=== PATIENT | female | born 1945 | race Caucasian/White ===

== ENCOUNTER 2020-07-05 06:30 | Emergency (ER) | payer MEDICARE, OTHER ==
[~2020-07-05] VITALS: Ht 154.9 cm; Wt 41.2 kg
[~2020-07-05 06:30] MED LIST: BACITAB PO; COUM2.5T17 PO; FLAG500T PO; LEVA750T7 PO; PROTPAK PO; TYLE325T5 PO; ULTR50TA8 PO
--- OUTSIDE RECORDS SUMMARY | 2020-07-05 06:40 | CCD | Continuity of Care Document ---
Author Author Kailey BUSTAMANTE Organization Unknown Address [address] [place] [address] Phone [phone] Care Team Providers Care Autocad Name Role Phone Karla Bustamante AUTM [phone] Problems Active Problems Provider Date Pure hypercholesterolemia HEIDY Jacobs PNP Onset: Pure hyperglyceridemia HEIDY Jacobs PNP Onset: 2019 Essential hypertension HEIDY Jacobs PNP Onset: 2019 Gastroesophageal reflux disease HEIDY Jacobs PNP Onse t: 04/19/2020 Taking medication HEIDY Jacobs PNP Onset: 0 Age-related osteoporosis without current pathological fracture DANDY Jacobs PNP Onset: 04/19/2020 Social History Type Date Description Comments Sex Unknown Tobacco Use Start: Unknown Never Smoked Cigarettes Tobacco Use Start: Unknown Never Smoked Cigars Tobacco Use Start: Unknown Never Smoked A Pipe Tobacco Use Start: Unknown Never Used Smokeless Tobacco ETOH Use Denies alcohol use Tobacco Use Start: Unknown Patient has never smoked Recreational Drug Use Denies Drug Use Allergies, Adverse Reactions, Alerts Description No Known Drug Allergies Medications Active Medications SIG Qnty Indications Ordering Provide r Date Pantoprazole Sodium 20mg Tablets D R take one tablet by mouth every day 90tabs HEIDY Jacobs PNP 04/19/2020 Magnesium Oxide 400mg Tablets 1 by mouth every day 90tabs HEIDY Jacobs PNP 04/19/20 20 Clonidine HCL 0.1mg Tablets take one tablet by mouth every day 90tabs HEIDY Jacobs, PN P Fenofibrate 48mg Tablets take one tablet by mouth every day 90tabs HEIDY Jacobs PNP Losartan Potassium 100mg Tablets take one tablet by mouth every day 90tabs HEIDY Jacobs, PN P Atorvastatin Calcium 20mg Tablets take one tablet by mouth every evening 90tabs HEIDY Jacobs , PNP Alendronate Sodium 70mg Tablets take 1 tablet by mouth once a week 12tabs HEIDY Jacobs, PNP Caltrate 600+D Plus Minerals [id number] Tablets 1 by mouth twice a day Unknown Hair Skin And Nails Formula Table ts 2 by mouth every day Unknown Vitamin E 180mg Capsules 1 by mouth every day Unknown Immunizations Description No Information Available Vital Signs Date Vital Result Comment 04/19/2020 1:12pm BP Systolic 120 mmHg BP Diastolic 80 mmHg Heart Rate 102 /min Body Temperature 97.4 F Respiratory Rate 18 /min O2 % BldC Oximetry 97 % Weight 89.12 lb Weight 40.427 kg Height 58 inches 4'10" BMI (Body Mass Index) 18.6 kg/m2 BSA (Body Surface Area) 1.29 m2 10/20/2019 1:00pm BP Systolic 140 mmHg BP Diastolic 68 mmHg Heart Rate 94 /min Body Temperature 98.2 F Respiratory Rate 18 /min O2 % BldC Oximetry 96 % Weight 96.25 lb Weight 43.659 kg Height 58 inches 4'10" BMI (Body Mass Index) 20.1 kg/m2 BSA (Body Surface Area) 1.33 m2 Results Test Acquired Date Facility Test Result H/L Range Note CBC W/Automated Diff 04/14/2020 [facility] CBC W/Automated Diff (SEE NOTE) 1, 2 WBC 8.1 10^3/uL 4.2 - 11.0 RBC 3.81 10^6/uL Low 4.20 - 5.40 Hemoglobin 11.0 g/dL Low 12.0 - 16.0 Hematocrit 35.0 % Low 37.0 - 47.0 MCV 91.9 fL 81.0 - 101 MCH 28.9 pg 27.0 - 34.0 MCHC 31.4 g/dL 31.0 - 36.0 RDW 13.6 % 11.5 - 14.5 Platelets 331 10^3/uL 150 - 450 MPV 9.7 fL 7.4 - 10.4 Neut 70.9 % 37.0 - 80.0 Lymph 20.0 % Low 25.0 - 40.0 Ashe 6.0 % 3.0 - 8.0 Eos 1.9 % 0.0 - 7.0 Baso 0.6 % 0.0 - 2.5 %Ig 0.6 % High 0.0 - 0.0 %NRBC 0.0 % 0.0 - 0.0 #Neut 5.74 10^3/uL 2.00 - 6.90 #Lymph 1.62 10^3/uL 0.60 - 3.40 #Ashe 0.49 10^3/uL 0.00 - 0.90 #Eos 0.15 10^3/uL 0.00 - 0.70 #Baso 0.05 10^3/uL 0.00 - 0.20 #Ig 0.05 10^3/uL 0.00 - 0.10 #NRBC 0.00 10^3/uL 0.00 - 0.00 Manual Diff NOT INDICATED RBC Morph NOT INDICATED Comprehensive Metabolic Panel 04/14/2020 [facility] Comprehensive Metabo (SEE NOTE) 3 Sodium 143 mEq/L 134 - 153 Potassium 4.0 mEq/L 3.6 - 5.0 Chloride 107 mEq/L 98 - 107 Co2 27 mEq/L 22 - 30 Glucose 108 mg/dL 65 - 110 BUN 28 mg/dL High 7 - 21 Creatinine 1.0 mg/dL 0.7 - 1.5 BUN/Creat 28 High 8 - 27 Total Protein 6.9 g/dL 6.3 - 8.2 Albumin 4.4 g/dL 3.9 - 5.0 Globulin 2.5 GM/DL 2.4 - 3.2 A/G Ratio 1.8 0.8 - 2.0 Calcium 10.0 mg/dL 8.4 - 10.2 Total Bili <0.7 mg/dL 0.2 - 1.3 Alkaline Phos 82 U/L 38 - 126 Sgot/Ast 16 U/L 5 - 40 SGPT/Alt 11 U/L 7 - 56 Anion Gap 9.0 mmol/L 8.0 - 16.0 Age 75 yrs Non-Aa GFR 57 mL/min Afr Amer GFR >60 4 Laboratory test finding 04/14/2020 [facility] Hgba1c 6.6 % High 4.4 - 6.1 5 TSH Highly Sensitive 1.01 uIU/mL 0.47 - 5.01 Cve Panel 04/14/2020 [facility] Cve Panel (SEE NOTE) 6 Cholesterol 176 mg/dL 131 - 200 Triglycerides 155 mg/dL 35 - 160 HDL 56 mg/dL 29 - 86 LDL 97 mg/dL 65 - 175 Risk Factor 3.1 Low 3.2 - 4.4 LDL/HDL 1.73 1.47 - 3.22 7 Laboratory test finding 04/14/2020 [facility] Magnesium Serum 1.3 mg/dL Low 1.7 - 2.2 CBC W/Automated Diff 10/26/2019 [facility] CBC W/Automated Diff (SEE NOTE) 8, 9 WBC 6.5 10^3/uL 4.2 - 11.0 RBC 3.96 10^6/uL Low 4.20 - 5.40 Hemoglobin 11.6 g/dL Low 12.0 - 16.0 Hematocrit 36.7 % Low 37.0 - 47.0 MCV 92.7 fL 81.0 - 101 MCH 29.3 pg 27.0 - 34.0 MCHC 31.6 g/dL 31.0 - 36.0 RDW 13.4 % 11.5 - 14.5 Platelets 287 10^3/uL 150 - 450 MPV 10.0 fL 7.4 - 10.4 Neut 65.0 % 37.0 - 80.0 Lymph 25.1 % 25.0 - 40.0 Ashe 6.3 % 3.0 - 8.0 Eos 2.2 % 0.0 - 7.0 Baso 0.9 % 0.0 - 2.5 %Ig 0.5 % High 0.0 - 0.0 %NRBC 0.0 % 0.0 - 0.0 #Neut 4.20 10^3/uL 2.00 - 6.90 #Lymph 1.62 10^3/uL 0.60 - 3.40 #Ashe 0.41 10^3/uL 0.00 - 0.90 #Eos 0.14 10^3/uL 0.00 - 0.70 #Baso 0.06 10^3/uL 0.00 - 0.20 #Ig 0.03 10^3/uL 0.00 - 0.10 #NRBC 0.00 10^3/uL 0.00 - 0.00 Manual Diff NOT INDICATED RBC Morph NOT INDICATED Comprehensive Metabolic Panel 10/26/2019 [facility] Comprehensive Metabo (SEE NOTE) 10 Sodium 145 mEq/L 134 - 153 Potassium 4.2 mEq/L 3.6 - 5.0 Chloride 104 mEq/L 98 - 107 Co2 25 mEq/L 22 - 30 Glucose 103 mg/dL 65 - 110 BUN 20 mg/dL 7 - 21 Creatinine 1.2 mg/dL 0.7 - 1.5 BUN/Creat 17 8 - 27 Total Protein 7.3 g/dL 6.3 - 8.2 Albumin 4.8 g/dL 3.9 - 5.0 Globulin 2.5 GM/DL 2.4 - 3.2 A/G Ratio 1.9 0.8 - 2.0 Calcium 10.0 mg/dL 8.4 - 10.2 Total Bili <0.7 mg/dL 0.2 - 1.3 Alkaline Phos 74 U/L 38 - 126 Sgot/Ast 16 U/L 5 - 40 SGPT/Alt 10 U/L 7 - 56 Anion Gap 16.0 mmol/L 8.0 - 16.0 Age 74 yrs Non-Aa GFR 47 mL/min Afr Amer GFR >60 11 Laboratory test finding 10/26/2019 [facility] Hgba1c 6.7 % High 4.4 - 6.1 12 TSH Highly Sensitive 2.18 uIU/mL 0.47 - 5.01 Cve Panel 10/26/2019 [facility] Cve Panel (SEE NOTE) 13 Cholesterol 202 mg/dL High 131 - 200 Triglycerides 132 mg/dL 35 - 160 HDL 65 mg/dL 29 - 86 LDL 119 mg/dL 65 - 175 Risk Factor 3.1 Low 3.2 - 4.4 LDL/HDL 1.83 1.47 - 3.22 14 Laboratory test finding 10/26/2019 [facility] Magnesium Serum 1.6 mg/dL Low 1.7 - 2.2 1 FASTING~.~.~<DG1.3.1>E78.00</DG1.3.1><DG1.3.1>E78.1</DG1.3.1><DG1.3.1>Z79.899</D G1.3.1><DG1. 2 COMPLETE BLOOD COUNT 3 COMPREHENSIVE METABOLIC PANE L 4 Male GFR Interprentation 20-49 yrs >60 mL/min Normal 50-59 yrs >56 mL/min Normal 60-69 yrs >49 mL/min Normal 70-79yrs >42 mL/min Normal 80 and above >35 mL/min Normal Female GFR Interpretation 20-39 yrs >60 mL/min Normal 40-49 yrs >58 mL/min Normal 50-59 yrs >51 mL/min Normal 60-69 yrs >45 mL/min Normal 70-79 yrs >39 mL/min Normal 80 and above >32 mL/min Normal 5 {A1] {HB] 6 LIPID PANEL 7 CVE RISK CHOL/HDL LDL/HDL MEN: 1/2 AVERAGE 3.43 1.00 AVERAGE 4.97 3.55 2X AVERAGE 9.55 6.25 3X AVERAGE 23.99 7.99 WOMEN: 1/2 AVERAGE 3.27 1.47 AVERAGE 4.44 3.22 2X AVERAGE 7.05 5.03 3X AVERAGE 11.04 6.14 8 Is patient fasting? N 9 COMPLETE BLOOD COUNT 10 COMPREHENSIVE METABOLIC PANE L 11 Male GFR Interprentation 20-49 yrs >60 mL/min Normal 50-59 yrs >56 mL/min Normal 60-69 yrs >49 mL/min Normal 70-79yrs >42 mL/min Normal 80 and above >35 mL/min Normal Female GFR Interpretation 20-39 yrs >60 mL/min Normal 40-49 yrs >58 mL/min Normal 50-59 yrs >51 mL/min Normal 60-69 yrs >45 mL/min Normal 70-79 yrs >39 mL/min Normal 80 and above >32 mL/min Normal 12 {A1] {HB] 13 LIPID PANEL 14 CVE RISK CHOL/HDL LDL/HDL MEN: 1/2 AVERAGE 3.43 1.00 AVERAGE 4.97 3.55 2X AVERAGE 9.55 6.25 3X AVERAGE 23.99 7.99 WOMEN: 1/2 AVERAGE 3.27 1.47 AVERAGE 4.44 3.22 2X AVERAGE 7.05 5.03 3X AVERAGE 11.04 6.14 Procedures Date Code Description Status 10/20/2019 49994 Admin Patient Focused Health Ris k Assessment Instrument Completed 10/20/2019 71140 Brief Emotional/Beha v Assessment W/ Scoring Doc Per Standard Inst Completed Medical Devices Description No Information Available Encounters Description No Information Available Assessments Date Code Description Provider 04/19/2020 E78.00 Pure hypercholesterolemia, unspe cified HEIDY Jacobs, PNP 04/19/2020 E78.1 Pure hyperglyceridemia HEIDY Joseph, PNP 04/19/2020 I10 Essential (primary) hypertension HEIDY Jacobs, PNP 04/19/2020 K21.9 Gastro-esophageal reflux disease without esophagitis HEIDY Jacobs, PNP 04/19/2020 E83.42 Hypomagnesemia DANDY Jacobs, PNP 04/19/2020 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 HEIDY Jacobs, PNP 04/14/2020 E78.00 Pure hypercholesterolemia, unspe cified [facility] 04/14/2020 E78.1 Pure hyperglyceridemia [facility] 04/14/2020 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 N18.3 Chronic kidney disease, stage 3 (moderate) [facility] 04/14/2020 K21.9 Gastro-esophageal reflux disease without esophagitis [facility] 10/26/2019 E78.00 Pure hypercholesterolemia, unspe cified [facility] 10/26/2019 E78.1 Pure hyperglyceridemia [facility] 10/26/2019 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 [facility] 10/26/2019 N18.3 Chronic kidney disease, stage 3 (moderate) [facility] 10/26/2019 K21.9 Gastro-esophageal reflux disease without esophagitis [facility] 10/20/2019 I10 Essential (primary) hypertension HEIDY Jacobs, PNP 10/20/2019 K21.9 Gastro-esophageal reflux disease without esophagitis HEIDY Jacobs, PNP 10/20/2019 M81.0 Age-related osteoporosis without current pathological fracture HEIDY Jacobs, PNP 10/20/2019 E78.00 Pure hypercholesterolemia, unspe cified HEIDY Jacobs, PNP 10/20/2019 E78.1 Pure hyperglyceridemia HEIDY Joseph, PNP 10/20/2019 N18.3 Chronic kidney disease, stage 3 (moderate) HEIDY Jacobs, PNP Plan of Treatment Future Appointment(s):* 10/09/2020 8:00 am - [facility] * 10/16/2020 11:20 am - HEIDY Jacobs, PNP at [facility] 04/19/2020 - HEIDY Jacobs, PNP* E78.00 Pure hypercholesterolemia, unspecified* New Labs:* CBC W/Automated Diff, Scheduled: 10/09/20 * Comprehensive Metabolic Panel, Scheduled: 10/09/20 * Hgba1c, Scheduled: 10/09/20 * TSH Highly Sensitive, Scheduled: 10/09/20 * Cve Panel, Scheduled: 10/09/20 * Comments:* Labs reviewed with the patient in detail.Lipid panel showed:CHOL at 176.TRG at 155.HDL at 56.LDL at 97.She will continue with her current regimen (Atorvastatin 20 mg daily). She was encouraged to maintain a low cholesterol diet and a regular exercise regimen. We will continue to monitor. * Follow up:* FU 6 months, fasting labs prior * E78.1 Pure hyperglyceridemia* New Labs:* Hgba1c, Scheduled: 10/09/20 * Cve Panel, Scheduled: 10/09/20 * Comments:* Labs reviewed with the patient in detail.Lipid panel showed:CHOL at 176.TRG at 155.HDL at 56.LDL at 97.She will continue with her current regimen (Fenofibrate 48 mg daily). She was encouraged to maintain a low cholesterol diet and a regular exercise regimen. We will continue to monitor. * Follow up:* FU in 6 months, Fasting labs first * I10 Essential (primary) hypertension* Comments:* JNC8 Guidelines - Pt white Female > 60 To continue the prescribed ARB, clonidine.BP is at goal 120/80Continue current treatment and monitor. She will benefit from maintaining a low sodium diet. * K21.9 Gastro-esophageal reflux disease without esophagitis* New Labs:* CBC W/Automated Diff, Scheduled: 10/09/20 * Magnesium Serum, Scheduled: 10/09/20 * Comments:* Advised pt to attempt slow taper and d/c Pantoprazole over several months, use TUMS for breakthrough symptoms due to side effects of PPI classTo start Pantoprazole at a lower dose of 20 mg daily from 40 mg daily.Making a few lifestyle changes may help control the symptoms and signs caused by a GERD. Try to:Eat several smaller meals throughout the day rather than a few large mealsAvoid foods that trigger heartburn, such as fatty or fried foods, tomato sauce, chocolate, mint, garlic, onionAvoid lying down after a meal or eating late in the dayEat at least two to three hours before bedtime.Maintain a healthy weightElevate the head of your bed 6 inches (about 15 centimeters) * E83.42 Hypomagnesemia* New Labs:* Comprehensive Metabolic Panel, Scheduled: 10/09/20 * TSH Highly Sensitive, Scheduled: 10/09/20 * Magnesium Serum, Scheduled: 10/09/20 * Comments:* Labs show Magnesium low at 1.3.To start Magnesium 400 mg 1 tab PO daily.We will continue to monitor through periodic blood work. 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 We will continue to monitor through periodic blood work. * Follow up:* FU in 6 months, fasting labs first. Functional Status Description No Information Available Mental Status Description No Information Available Referrals Description No Information Available
--- OUTSIDE RECORDS SUMMARY | 2020-07-05 06:40 | CCD | Continuity of Care Document ---
Author Author Kailey WORTHY Organization Unknown Address [address] [place] [address] Phone [phone] Care Team Providers Care Socket Puller Name Role Phone Vane Payne AUTM [phone] Problems Active Problems Provider Date Pure hypercholesterolemia [...] PNP 04/19/20 20 Clonidine HCL 0.1mg Tablets Take One Tablet By Mouth Every Day 90tabs HEIDY Jacobs, PN P Fenofibrate 48mg [...] HEIDY Jacobs, PNP Caltrate 600+D Plus Minerals [id number] Tablets 1 by mouth twice a day Unknown Hair Skin And Nails Formula Table ts 2 by mouth every day Unknown Vitamin E 180mg Capsules 1 by mouth every day Unknown Immunizations Description No Information Available Vital Signs Date Vital Result Comment 07/03/2020 8:42am BP Systolic 200 mmHg BP Diastolic 100 mmHg BP Systolic Sitting 194 mmHg BP Diastolic Sitting 100 mmHg Heart Rate 124 /min Respiratory Rate 18 /min O2 % BldC Oximetry 97 % Height 58 inches 4'10" 04/19/2020 1:12pm BP Systolic 120 mmHg BP Diastolic 80 mmHg Heart Rate 102 /min Body Temperature 97.4 F Respiratory Rate 18 /min O2 % BldC Oximetry 97 % Weight 89.12 lb Weight 40.427 kg Height 58 inches 4'10" BMI (Body Mass Index) 18.6 kg/m2 BSA (Body Surface Area) 1.29 m2 Results Test Acquired Date Facility Test Result H/L Range Note CBC W/Automated Diff 04/14/2020 [facility] CBC W/Automated Diff (SEE NOTE) 1, [...] Lymph 20.0 % Low 25.0 - 40.0 [place] 6.0 % 3.0 - 8.0 Eos 1.9 % 0.0 - 7.0 Baso 0.6 % 0.0 - 2.5 %Ig 0.6 % High 0.0 - 0.0 %NRBC 0.0 % 0.0 - 0.0 #Neut 5.74 10^3/uL 2.00 - 6.90 #Lymph 1.62 10^3/uL 0.60 - 3.40 #Storey 0.49 10^3/uL 0.00 - 0.90 #Eos 0.15 10^3/uL 0.00 - 0.70 #Baso 0.05 10^3/uL 0.00 - 0.20 #Ig 0.05 10^3/uL 0.00 - 0.10 #NRBC 0.00 10^3/uL 0.00 - 0.00 Manual Diff NOT INDICATED RBC Morph NOT INDICATED Comprehensive Metabolic Panel 04/14/2020 [facility] Comprehensive Metabo (SEE NOTE) 3 [...] GFR >60 4 Laboratory test finding 04/14/2020 [facility] Hgba1c 6.6 % High 4.4 - 6.1 5 TSH Highly Sensitive 1.01 uIU/mL 0.47 - 5.01 Cve Panel 04/14/2020 [facility] Cve Panel (SEE NOTE) 6 Cholesterol 176 mg/dL 131 - 200 Triglycerides 155 mg/dL 35 - 160 HDL 56 mg/dL 29 - 86 LDL 97 mg/dL 65 - 175 Risk Factor 3.1 Low 3.2 - 4.4 LDL/HDL 1.73 1.47 - 3.22 7 Laboratory test finding 04/14/2020 [facility] Magnesium Serum 1.3 mg/dL Low 1.7 - 2.2 1 FASTING~.~.~<DG1.3.1>E78.00</DG1.3.1><DG1.3.1>E78.1</DG1.3.1><DG1.3.1>Z79.899</D [...] 7.05 5.03 3X AVERAGE 11.04 6.14 Procedures Description No Information Available Medical Devices Description No Information Available Encounters Description No Information Available Assessments Date Code Description Provider 04/19/2020 E78.00 Pure hypercholesterolemia, unspe cified HEIDY Jacobs, PNP 04/19/2020 E78.1 Pure hyperglyceridemia HEIDY Joseph, PNP 04/19/2020 I10 Essential (primary) hypertension HEIDY Jacobs, PNP 04/19/2020 K21.9 Gastro-esophageal reflux disease without esophagitis HEIDY Jacobs, PNP 04/19/2020 E83.42 Hypomagnesemia DANDY Jacobs, PNP 04/19/2020 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 * 10/09/2020 8:00 am - [facility] at [facility] 04/19/2020 - HEIDY Jacobs, PNP* E78.00 Pure hypercholesterolemia, unspecified* Comments:* Labs reviewed with the patient in detail.Lipid panel showed:CHOL at 176.TRG at 155.HDL at 56.LDL at 97.She will continue with her current regimen (Atorvastatin 20 mg daily). She was encouraged to maintain a low cholesterol diet and a regular exercise regimen. We will continue to monitor. * Follow up:* FU 6 months, fasting labs prior * E78.1 Pure hyperglyceridemia* Comments:* Labs reviewed with the patient in [...] * K21.9 Gastro-esophageal reflux disease without esophagitis* Comments:* Advised pt to attempt slow taper and d/c Pantoprazole over several months, use TUMS for breakthrough symptoms due to side effects of PPI classTo start Pantopraz ole at a lower dose of 20 mg [...] inches (about 15 centimeters) * E83.42 Hypomagnesemia* Comments:* Labs show Magnesium low at 1.3.To start Magnesium 400 mg 1 tab PO daily.We will continue to monitor through periodic blood work. * Follow up:* FU in 6 months, Fasting labs first * Z79.899 Other [facility] (current) drug therapy* Comments:* Patient to continue to follow the current plan of care and to look for any new or worsening symptoms. We will continue to monitor through periodic blood work. * Follow up:* FU in 6 months, fasting labs first. Functional Status Description No Information Available Mental Status Description No Information Available Referrals Description No Information Available
--- OUTSIDE RECORDS SUMMARY | 2020-07-05 06:40 | CCD | Continuity of Care Document ---
Author Author [facility] Organization Unknown Address [address] [place] [address] [address] [place] [address] Phone [phone] Care Team Providers Care Clinical Support Tech Name Role Phone Karla Bustamante AUTM [phone] Problems Active Problems Provider Date Pure hypercholesterolemia HEIDY Jacobs, LORENA Onset: Pure hyperglyceridemia HEIDY Jacobs, LORENA Onset: 2019 Essential hypertension HEIDY Jacobs PNP Onset: 2019 Gastroesophageal reflux disease HEIDY Jacobs PNP Onse t: 04/19/2020 Taking medication HEIDY Jacobs, LORENA Onset: 0 Age-related osteoporosis without current pathological [...] HEIDY Jacobs, PNP Caltrate 600+D Plus Minerals [id number] Tablets 1 by mouth twice a day [...] H/L Range Note CBC W/Automated Diff 04/14/2020 [facility] CBC W/Automated Diff (SEE NOTE) 1, [...] Lymph 20.0 % Low 25.0 - 40.0 [place] 6.0 % 3.0 - 8.0 Eos 1.9 % 0.0 - 7.0 Baso 0.6 % 0.0 - 2.5 %Ig 0.6 % High 0.0 - 0.0 %NRBC 0.0 % 0.0 - 0.0 #Neut 5.74 10^3/uL 2.00 - 6.90 #Lymph 1.62 10^3/uL 0.60 - 3.40 #[place] 0.49 10^3/uL 0.00 - 0.90 #Eos 0.15 10^3/uL 0.00 - 0.70 #Baso 0.05 10^3/uL 0.00 - 0.20 #Ig 0.05 10^3/uL 0.00 - 0.10 #NRBC 0.00 10^3/uL 0.00 - 0.00 Manual Diff NOT INDICATED RBC Morph NOT INDICATED Comprehensive Metabolic Panel 04/14/2020 [facility] Comprehensive Metabo (SEE NOTE) 3 [...] GFR >60 4 Laboratory test finding 04/14/2020 [facility] Hgba1c 6.6 % High 4.4 - 6.1 5 TSH Highly Sensitive 1.01 uIU/mL 0.47 - 5.01 Cve Panel 04/14/2020 [facility] Cve Panel (SEE NOTE) 6 Cholesterol 176 mg/dL 131 - 200 Triglycerides 155 mg/dL 35 - 160 HDL 56 mg/dL 29 - 86 LDL 97 mg/dL 65 - 175 Risk Factor 3.1 Low 3.2 - 4.4 LDL/HDL 1.73 1.47 - 3.22 7 Laboratory test finding 04/14/2020 [facility] Magnesium Serum 1.3 mg/dL Low 1.7 - 2.2 CBC W/Automated Diff 10/26/2019 [facility] CBC W/Automated Diff (SEE NOTE) 8, [...] 80.0 Lymph 25.1 % 25.0 - 40.0 [place] 6.3 % 3.0 - 8.0 Eos 2.2 % 0.0 - 7.0 Baso 0.9 % 0.0 - 2.5 %Ig 0.5 % High 0.0 - 0.0 %NRBC 0.0 % 0.0 - 0.0 #Neut 4.20 10^3/uL 2.00 - 6.90 #Lymph 1.62 10^3/uL 0.60 - 3.40 #[place] 0.41 10^3/uL 0.00 - 0.90 #Eos 0.14 10^3/uL 0.00 - 0.70 #Baso 0.06 10^3/uL 0.00 - 0.20 #Ig 0.03 10^3/uL 0.00 - 0.10 #NRBC 0.00 10^3/uL 0.00 - 0.00 Manual Diff NOT INDICATED RBC Morph NOT INDICATED Comprehensive Metabolic Panel 10/26/2019 [facility] Comprehensive Metabo (SEE NOTE) 10 Sodium 145 [...] GFR >60 11 Laboratory test finding 10/26/2019 [facility] Hgba1c 6.7 % High 4.4 - 6.1 12 TSH Highly Sensitive 2.18 uIU/mL 0.47 - 5.01 Cve Panel 10/26/2019 [facility] Cve Panel (SEE NOTE) 13 Cholesterol 202 mg/dL High 131 - 200 Triglycerides 132 mg/dL 35 - 160 HDL 65 mg/dL 29 - 86 LDL 119 mg/dL 65 - 175 Risk Factor 3.1 Low 3.2 - 4.4 LDL/HDL 1.83 1.47 - 3.22 14 Laboratory test finding [facility] Magnesium Serum 1.6 mg/dL Low 1.7 [...] 6.14 Procedures Date Code Description Status 10/20/2019 64248 Admin Patient Focused Health Ris k Assessment Instrument Completed 10/20/2019 19856 Brief Emotional/Beha v Assessment W/ Scoring Doc Per Standard Inst Completed Medical Devices Description No Information Available Encounters Description No Information Available Assessments Date Code Description Provider 04/19/2020 E78.00 Pure hypercholesterolemia, unspe cified HEIDY Jacobs, PNP 04/19/2020 E78.1 Pure [facility]glyceridemia [facility] 04/19/2020 I10 Essential (primary) hypertension HEIDY Jacobs, PNP 04/19/2020 K21.9 Gastro-esophageal reflux disease without esophagitis HEIDY Jacobs, PNP 04/19/2020 E83.42 Hypomagnesemia DANDY Jacobs, PNP 04/19/2020 Z79.899 Other detention (current) drug t herapy HEIDY Jacobs, PNP 04/14/2020 E78.00 Pure hypercholesterolemia, unspe cified [facility] 04/14/2020 E78.1 Pure hyperglyceridemia [facility] 04/14/2020 Z79.899 Other detention (current) drug t herapy [facility] 04/14/2020 N18.3 Chronic kidney disease, stage 3 (moderate) [facility] 04/14/2020 K21.9 Gastro-esophageal reflux disease without esophagitis [facility] 10/26/2019 E78.00 Pure hypercholesterolemia, unspe cified [facility] 10/26/2019 E78.1 Pure hyperglyceridemia [facility] 10/26/2019 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 [facility] 10/26/2019 N18.3 Chronic kidney disease, stage 3 (moderate) [facility] 10/26/2019 K21.9 Gastro-esophageal reflux disease without esophagitis [facility] 10/20/2019 I10 Essential (primary) hypertension HEIDY Jacobs, PNP 10/20/2019 K21.9 Gastro-esophageal reflux disease without esophagitis HEIDY Jacobs, PNP 10/20/2019 M81.0 Age-related osteoporosis without current pathological fracture HEIDY Jacobs, PNP 10/20/2019 E78.00 Pure hypercholesterolemia, unspe cified HEIDY Jacobs, PNP 10/20/2019 E78.1 Pure hyperglyceridemia HEIDY Joseph, PNP 10/20/2019 N18.3 Chronic kidney disease, stage 3 (moderate) HEIDY Jacobs, PNP Plan of Treatment 04/19/2020 - HEIDY Jacobs, PNP* E78.00 Pure hypercholesterolemia, unspecified* New Labs:* CBC W/Automated Diff, Ordered: 04/19/20 * Comprehensive Metabolic Panel, Ordered: 04/19/20 * Hgba1c, Ordered: 04/19/20 * TSH Highly Sensitive, Ordered: 04/19/20 * Cve Panel, Ordered: 04/19/20 * Comments:* Labs reviewed with the patient in detail.Lipid panel showed:CHOL at 176.TRG at 155.HDL at 56.LDL at 97.She will continue with her current regimen (Atorvastatin 20 mg daily). She was encouraged to maintain a low cholesterol diet and a regular exercise regimen. We will continue to monitor. * E78.1 Pure hyperglyceridemia* New Labs:* CBC W/Automated Diff, Ordered: 04/19/20 * Comments:* Labs reviewed with the patient in detail.Lipid panel showed:CHOL at 176.TRG at 155.HDL at 56.LDL at 97.She will continue with her current regimen (Fenofibrate 48 mg daily). She was encouraged to maintain a low cholesterol diet and a regular exercise regimen. We will continue to monitor. * I10 Essential (primary) hypertension* Comments:* JNC8 Guidelines - Pt white Female > 60 To continue the prescribed ARB, clonidine.BP is at goal 120/80Continue current treatment and monitor. She will benefit from maintaining a low sodium diet. * K21.9 Gastro-esophageal reflux disease without esophagitis* New Labs:* Magnesium Serum, Ordered: 04/19/20 * Comments:* Advised pt to attempt slow [...] to monitor through periodic blood work. 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 We will continue to monitor through periodic blood work. * Follow up:* FU in 3 months, fasting labs first. Functional Status Description No Information Available Mental Status Description No Information Available Referrals Description No Information Available
--- OUTSIDE RECORDS SUMMARY | 2020-07-05 06:41 | CCD | Continuity of Care Document ---
Author Author [facility] Unknown Address [address] [place] [address] [address] [place] [address] Phone [phone] Care Team Providers Care Switchbox Assembler Name Role Phone Karla Bustamante AUTM [phone] Problems Description No Information Available Social History Type Date Description Comments Sex Unknown ETOH Use Denies alcohol use Tobacco Use Start: Unknown Patient has never smoked Recreational Drug Use Denies Drug Use Allergies, Adverse Reactions, Alerts Description No Known Drug Allergies Medications Active Medications SIG Qnty Indications Ordering Provide r Date Clonidine HCL 0.1mg Tablets take one tablet by mouth every day 90tabs HEIDY Jacobs, PN P Fenofibrate 48mg Tablets Take One Tablet By Mouth Every Day Unknown Losartan Potassium 100mg Tablets take one tablet by mouth every day 90tabs HEIDY Jacobs, PN P Pantoprazole Sodium 40mg Tablets D R Take One Tablet By Mouth Every Day Unknown Atorvastatin Calcium 20mg Tablets Take One Tablet By Mouth Every Evening Unknown Alendronate Sodium 70mg Tablets take 1 tablet by mouth once a week Unknown Caltrate 600+D Plus Minerals [id number] Tablets 1 by mouth twice a day Unknown Hair Skin And Nails Formula Table ts 2 by mouth every day Unknown Vitamin E 180mg Capsules 1 by mouth every day Unknown Immunizations Description No Information Available Vital Signs Date Vital Result Comment 10/20/2019 1:00pm BP Systolic 140 mmHg BP Diastolic 68 mmHg Heart Rate 94 /min Body Temperature 98.2 F Respiratory Rate 18 /min O2 % BldC Oximetry 96 % Weight 96.25 lb Weight 43.659 kg Height 58 inches 4'10" BMI (Body Mass Index) 20.1 kg/m2 BSA (Body Surface Area) 1.33 m2 Results Test Acquired Date Facility Test Result H/L Range Note Laboratory test finding 04/14/2020 [facility] Hgba1c <pending> TSH Highly Sensitive <pending> Laboratory test finding 04/14/2020 [facility] Magnesium Serum <pending> CBC W/Automated Diff 10/26/2019 [facility] CBC W/Automated Diff (SEE NOTE) 1, 2 WBC 6.5 10^3/uL 4.2 - 11.0 RBC [...] 80.0 Lymph 25.1 % 25.0 - 40.0 [place] 6.3 % 3.0 - 8.0 Eos 2.2 % 0.0 - 7.0 Baso 0.9 % 0.0 - 2.5 %Ig 0.5 % High 0.0 - 0.0 %NRBC 0.0 % 0.0 - 0.0 #Neut 4.20 10^3/uL 2.00 - 6.90 #Lymph 1.62 10^3/uL 0.60 - 3.40 #[place] 0.41 10^3/uL 0.00 - 0.90 #Eos 0.14 10^3/uL 0.00 - 0.70 #Baso 0.06 10^3/uL 0.00 - 0.20 #Ig 0.03 10^3/uL 0.00 - 0.10 #NRBC 0.00 10^3/uL 0.00 - 0.00 Manual Diff NOT INDICATED RBC Morph NOT INDICATED Comprehensive Metabolic Panel 10/26/2019 [facility] Comprehensive Metabo (SEE NOTE) 3 Sodium 145 mEq/L 134 - 153 Potassium [...] GFR 47 mL/min Afr Amer GFR >60 4 Laboratory test finding 10/26/2019 [facility] Hgba1c 6.7 % High 4.4 - 6.1 5 TSH Highly Sensitive 2.18 uIU/mL 0.47 - 5.01 Cve Panel 10/26/2019 [facility] Cve Panel (SEE NOTE) 6 Cholesterol 202 mg/dL High 131 - 200 Triglycerides 132 mg/dL 35 - 160 HDL 65 mg/dL 29 - 86 LDL 119 mg/dL 65 - 175 Risk Factor 3.1 Low 3.2 - 4.4 LDL/HDL 1.83 1.47 - 3.22 7 Laboratory test finding 10/26/2019 [facility] Magnesium Serum 1.6 mg/dL Low 1.7 - 2.2 1 Is patient fasting? N 2 COMPLETE BLOOD COUNT 3 COMPREHENSIVE METABOLIC [...] 6.14 Procedures Date Code Description Status 10/20/2019 52656 Admin Patient Focused Health Ris k Assessment Instrument Completed 10/20/2019 90931 Brief Emotional/Beha v Assessment W/ Scoring Doc Per Standard Inst Completed Medical Devices Description No Information Available Encounters Description No Information Available Assessments Date Code Description Provider 04/14/2020 E78.00 Pure hypercholesterolemia, unspe cified [facility] 04/14/2020 E78.1 Pure hyperglyceridemia [facility] 04/14/2020 Z79.899 Other prison (current) drug t herapy [facility] 04/14/2020 N18.3 Chronic kidney disease, stage 3 (moderate) [facility] 04/14/2020 K21.9 Gastro-esophageal reflux disease without esophagitis [facility] 10/26/2019 E78.00 Pure hypercholesterolemia, unspe cified [facility] 10/26/2019 E78.1 Pure hyperglyceridemia [facility] 10/26/2019 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 [facility] 10/26/2019 N18.3 Chronic kidney disease, stage 3 (moderate) [facility] 10/26/2019 K21.9 Gastro-esophageal reflux disease without esophagitis [facility] 10/20/2019 I10 Essential (primary) hypertension HEIDY Jacobs, PNP 10/20/2019 K21.9 Gastro-esophageal reflux disease without esophagitis HEIDY Jacobs, PNP 10/20/2019 M81.0 Age-related osteoporosis without current pathological fracture HEIDY Jacobs, PNP 10/20/2019 E78.00 Pure hypercholesterolemia, unspe cified HEIDY Jacobs, PNP 10/20/2019 E78.1 Pure hyperglyceridemia HEIDY Joseph, PNP 10/20/2019 N18.3 Chronic kidney disease, stage 3 (moderate) HEIDY Jacobs, PNP Plan of Treatment Future Appointment(s):* 04/19/2020 1:20 pm - HEIDY Jacobs, PNP at [facility] 10/20/2019 - HEIDY Jacobs, PNP* I10 Essential (primary) hypertension* Comments:* JNC8 Guidelines - Pt white Female > 60 prescribed ARB, clonidine.BP is at goal 140/68Continue current treatment and monitor. She will benefit from maintaining a low sodium diet. * Follow up:* Fasting labs 10/25 FU visit 6 months, fasting labs first * K21.9 Gastro-esophageal reflux disease without esophagitis* Comments:* Pantoprazole 40 mg dailyMaking a few lifestyle changes may help control [...] bed 6 inches (about 15 centimeters) * M81.0 Age-related osteoporosis without current pathological fracture* Comments:* Alendronate 70 mg weekly * E78.00 Pure hypercholesterolemia, unspecified* Comments:* Atorvastatin 20 mg daily * Follow up:* Fasting labs this week FU 6 months, fasting labs prior * E78.1 Pure hyperglyceridemia* Comments:* Fenofibrate 48 mg daily * N18.3 Chronic kidney disease, stage 3 (moderate)* Comments:* 05/06/19BUN 20Creat 1.2GFR 49 * Follow up:* Recheck Kidney function this week Functional Status Description No Information Available Mental Status Description No Information Available Referrals Description No Information Available
--- OUTSIDE RECORDS SUMMARY | 2020-07-05 06:41 | CCD ---
Author Author [facility] Organization [facility] Address Unknown Phone Unavailable Care Team Providers Care Critical Care Specialist Name Role Phone JENNIFER SEGOVIA BO STEEL FINISHER Unavailable Unavailable JENNIFER SEGOVIA BO STEEL FINISHER Unavailable Unavailable SEGOVIA, JENNIFER BO STEEL FINISHER Unavailable Unavailable SEGOVIA, JENNIFER BO STEEL FINISHER Unavailable Unavailable SEGOVIA, JENNIFER BO STEEL FINISHER Unavailable Unavailable SEGOVIA, JENNIFER BO STEEL FINISHER Unavailable Unavailable JULIETTE, JENNIFER BO STEEL FINISHER Unavailable Unavailable SEGOVIA, JENNIFER BO STEEL FINISHER Unavailable Unavailable JULIETTE, JENNIFER BO STEEL FINISHER Unavailable Unavailable SEGOVIA, JENNIFER BO STEEL FINISHER Unavailable Unavailable SEGOVIA, JENNIFER BO STEEL FINISHER Unavailable Unavailable SEGOVIA, JENNIFER BO STEEL FINISHER Unavailable Unavailable JULIETTE, JENNIFER BO STEEL FINISHER Unavailable Unavailable JULIETTE, JENNIFER BO STEEL FINISHER Unavailable Unavailable JULIETTE, JENNIFER BO STEEL FINISHER Unavailable Unavailable JULIETTE, JENNIFER BO STEEL FINISHER Unavailable Unavailable SEGOVIA, JENNIFER BO STEEL FINISHER Unavailable Unavailable SEGOVIA, JENNIFER BO STEEL FINISHER Unavailable Unavailable SEGOVIA, JENNIFER BO STEEL FINISHER Unavailable Unavailable SEGOVIA, JENNIFER BO STEEL FINISHER Unavailable Unavailable JULIETTE, JENNIFER BO STEEL FINISHER Unavailable Unavailable SEGVOIA, JENNIFER BO STEEL FINISHER Unavailable Unavailable JULIETTE, JENNIFER BO STEEL FINISHER Unavailable Unavailable JULIETTE, JENNIFER BO STEEL FINISHER Unavailable Unavailable SEGOVIA, JENNIFER BO STEEL FINISHER Unavailable Unavailable SEGOVIA, JENNIFER BO STEEL FINISHER Unavailable Unavailable SEGOVIA, JENNIFER BO STEEL FINISHER Unavailable Unavailable SEGOVIA, JENNIFER BO STEEL FINISHER Unavailable Unavailable JULIETTE, JENNIFER BO STEEL FINISHER Unavailable Unavailable SEGOVIA, JENNIFER BO STEEL FINISHER Unavailable Unavailable JULIETTE, JENNIFER BO STEEL FINISHER Unavailable Unavailable SEGOVIA, JENNIFER BO STEEL FINISHER Unavailable Unavailable SEGOVIA, JENNIFER BO STEEL FINISHER Unavailable Unavailable SEGOVIA, JENNIFER BO STEEL FINISHER Unavailable Unavailable SEGOVIA, JENNIFER BO STEEL FINISHER Unavailable Unavailable SEGOVIA, JENNIFER BO STEEL FINISHER Unavailable Unavailable SEGOVIA, JENNIFER BO STEEL FINISHER Unavailable Unavailable SEGOVIA, JENNIFER BO STEEL FINISHER Unavailable Unavailable SEGOVIA, JENNIFER BO STEEL FINISHER Unavailable Unavailable SEGOVIA, JENNIFER BO STEEL FINISHER Unavailable Unavailable SEGOVIA, JENNIFER BO STEEL FINISHER Unavailable Unavailable SEGOVIA, JENNIFER BO STEEL FINISHER Unavailable Unavailable SEGOVIA, JENNIFER BO STEEL FINISHER Unavailable Unavailable SEGOVIA, JENNIFER BO STEEL FINISHER Unavailable Unavailable SEGOVIA, JENNIFER BO STEEL FINISHER Unavailable Unavailable SEGOVIA, JENNIFER BO STEEL FINISHER Unavailable Unavailable SEGOVIA, JENNIFER BO STEEL FINISHER Unavailable Unavailable SEGOVIA, JENNIFER BO STEEL FINISHER Unavailable Unavailable SEGOVIA, JENNIFER BO STEEL FINISHER Unavailable Unavailable SEGOVIA, JENNIFER BO STEEL FINISHER Unavailable Unavailable TURRIN, DAWSON Unavailable Unavailable TURRIN, DAWSON Unavailable Unavailable TURRIN, DAWSON Unavailable Unavailable TURRIN, DAWSON Unavailable Unavailable Nevills, C Vane STEEL FINISHER Unavailable Unavailable Nevills, C Vane STEEL FINISHER Unavailable Unavailable Nevills, C Vane STEEL FINISHER Unavailable Unavailable Nevills, C Vane STEEL FINISHER Unavailable Unavailable Nevills, C Vane STEEL FINISHER Unavailable Unavailable Nevills, C Vane STEEL FINISHER Unavailable Unavailable Nevills, C Vane STEEL FINISHER Unavailable Unavailable Nevills, C Vane STEEL FINISHER Unavailable Unavailable Nevills, C Vane STEEL FINISHER Unavailable Unavailable Nevills, C Vane STEEL FINISHER Unavailable Unavailable Nevills, C Vane STEEL FINISHER Unavailable Unavailable Nevills, C Vane STEEL FINISHER Unavailable Unavailable Nevills, C Vane STEEL FINISHER Unavailable Unavailable Nevills, C Vane STEEL FINISHER Unavailable Unavailable Nevills, C Vane STEEL FINISHER Unavailable Unavailable Nevills, C Vane STEEL FINISHER Unavailable Unavailable Nevills, C Vane STEEL FINISHER Unavailable Unavailable Deacon, Capri Karla ANP-BC Unavailable Unavailable Deacon, Capri Karla ANP-BC Unavailable Unavailable Deacon, Capri Karla ANP-BC Unavailable Unavailable Deacon, Capri Karla ANP-BC Unavailable Unavailable Deacon, Capri Karla ANP-BC Unavailable Unavailable Deacon, Capri Karla ANP-BC Unavailable Unavailable Deacon, Capri Karla ANP-BC Unavailable Unavailable Deacon, Capri Karla ANP-BC Unavailable Unavailable Deacon, Capri Karla ANP-BC Unavailable Unavailable Deacon, Capri Karla ANP-BC Unavailable Unavailable Deacon, Capri Karla ANP-BC Unavailable Unavailable Deacon, Capri Karla ANP-BC Unavailable Unavailable Deacon, Capri Karla ANP-BC Unavailable Unavailable Deacon, Capri Karla ANP-BC Unavailable Unavailable Deacon, Capri Karla ANP-BC Unavailable Unavailable Deacon, Capri Karla ANP-BC Unavailable Unavailable Deacon, Capri Karla ANP-BC Unavailable Unavailable Deacon, Capri Karla ANP-BC Unavailable Unavailable Deacon, Capri Akrla ANP-BC Unavailable Unavailable Deacon, Capri Karla ANP-BC Unavailable Unavailable Deacon, Capri Karla ANP-BC Unavailable Unavailable Deacon, Capri Karla ANP-BC Unavailable Unavailable Deacon, Capri Karla ANP-BC Unavailable Unavailable Deacon, Capri Karla ANP-BC Unavailable Unavailable Deacon, Capri Karla ANP-BC Unavailable Unavailable Deacon, Capri Karla ANP-BC Unavailable Unavailable Deacon, Capri Karla ANP-BC Unavailable Unavailable Deacon, Capri Karla ANP-BC Unavailable Unavailable Deacon, Capri Karla ANP-BC Unavailable Unavailable Deacon, Capri Karla ANP-BC Unavailable Unavailable Deacon, Capri Karla ANP-BC Unavailable Unavailable Deacon, Capri Karla ANP-BC Unavailable Unavailable Deacon, Capri Karla ANP-BC Unavailable Unavailable Deacon, Capri Karla ANP-BC Unavailable Unavailable Deacon, Capri Karla ANP-BC Unavailable Unavailable Deacon, Capri Karla ANP-BC Unavailable Unavailable Deacon, Capri Karla ANP-BC Unavailable Unavailable Deacon, Capri Karla ANP-BC Unavailable Unavailable Deacon, Capri Karla ANP-BC Unavailable Unavailable Deacon, Capri Karla ANP-BC Unavailable Unavailable Deacon, Capri Karla ANP-BC Unavailable Unavailable Deacon, Capri Karla ANP-BC Unavailable Unavailable Deacon, Capri Karla ANP-BC Unavailable Unavailable Deacon, Capri Karla ANP-BC Unavailable Unavailable Deacon, Capri Karla ANP-BC Unavailable Unavailable Deacon, Capri Karla ANP-BC Unavailable Unavailable Deacon, Capri Karla ANP-BC Unavailable Unavailable Deacon, Capri Karla ANP-BC Unavailable Unavailable Deacon, Capri Karla ANP-BC Unavailable Unavailable Deacon, Capri Karla ANP-BC Unavailable Unavailable Deacon, Capri Karla ANP-BC Unavailable Unavailable Deacon, Capri Karla ANP-BC Unavailable Unavailable Deacon, Capri Karla ANP-BC Unavailable Unavailable Deacon, Capri Karla ANP-BC Unavailable Unavailable Deacon, Capri Karla ANP-BC Unavailable Unavailable Deacon, Capri Karla ANP-BC Unavailable Unavailable Deacon, Capri Karla ANP-BC Unavailable Unavailable Deacon, Capri Karla ANP-BC Unavailable Unavailable Deacon, Capri Karla ANP-BC Unavailable Unavailable Deacon, Capri Karla ANP-BC Unavailable Unavailable Deacon, Capri Karla ANP-BC Unavailable Unavailable Deacon, Capri Karla ANP-BC Unavailable Unavailable Deacon, Capri Karla ANP-BC Unavailable Unavailable Deacon, Capri Karla ANP-BC Unavailable Unavailable Edacon, Capri Karla ANP-BC Unavailable Unavailable Deacon, Capri Karla ANP-BC Unavailable Unavailable Deacon, Capri Karla ANP-BC Unavailable Unavailable Deacon, Capri Karla ANP-BC Unavailable Unavailable Deacon, Capri Karla ANP-BC Unavailable Unavailable Deacon, Capri Karla ANP-BC Unavailable Unavailable Deacon, Capri Karla ANP-BC Unavailable Unavailable Deacon, Capri Karla ANP-BC Unavailable Unavailable Deacon, Capri Karla ANP-BC Unavailable Unavailable Deacon, Capri Karla ANP-BC Unavailable Unavailable Deacon, Capri Karla ANP-BC Unavailable Unavailable Deacon, Capri Karla ANP-BC Unavailable Unavailable Deacon, Capri Karla ANP-BC Unavailable Unavailable Deacon, Capri Karla ANP-BC Unavailable Unavailable Deacon, Capri Karla ANP-BC Unavailable Unavailable Deacon, Capri Karla ANP-BC Unavailable Unavailable Deacon, Capri Karla ANP-BC Unavailable Unavailable Deacon, Capri Karla ANP-BC Unavailable Unavailable Deacon, Capri Karla ANP-BC Unavailable Unavailable Deacon, Capri Karla ANP-BC Unavailable Unavailable Deacon, Capri Karla ANP-BC Unavailable Unavailable Deacon, Capri Karla ANP-BC Unavailable Unavailable Deacon, Capri Karla ANP-BC Unavailable Unavailable Deacon, Capri Karla ANP-BC Unavailable Unavailable Deacon, Capri Karla ANP-BC Unavailable Unavailable Deacon, Capri Karla ANP-BC Unavailable Unavailable Deacon, Capri Karla ANP-BC Unavailable Unavailable Deacon, Capri Karla ANP-BC Unavailable Unavailable Deacon, Capri Karla ANP-BC Unavailable Unavailable Deacon, Capri Karla ANP-BC Unavailable Unavailable Deacon, Capri Karla ANP-BC Unavailable Unavailable Deacon, Capri Karla ANP-BC Unavailable Unavailable Deacon, Capri Karla ANP-BC Unavailable Unavailable Deacon, Capri Karla ANP-BC Unavailable Unavailable Deacon, Capri Karla ANP-BC Unavailable Unavailable Deacon, Capri Karla ANP-BC Unavailable Unavailable Deacon, Capri Karla ANP-BC Unavailable Unavailable Deacon, Capri Karla ANP-BC Unavailable Unavailable Deacon, Capri Karla ANP-BC Unavailable Unavailable Deacon, Capri Karla ANP-BC Unavailable Unavailable Deacon, Capri Karla ANP-BC Unavailable Unavailable Deacon, Capri Karla ANP-BC Unavailable Unavailable Deacon, Capri Karla ANP-BC Unavailable Unavailable Deacon, Capri Karla ANP-BC Unavailable Unavailable Deacon, Capri Karla ANP-BC Unavailable Unavailable Deacon, Capri Karla ANP-BC Unavailable Unavailable Deacon, Capri Karla ANP-BC Unavailable Unavailable Deacon, Capri Karla ANP-BC Unavailable Unavailable Deacon, Capri Karla ANP-BC Unavailable Unavailable Deacon, Capri Karla ANP-BC Unavailable Unavailable Deacon, Capri Karla ANP-BC Unavailable Unavailable Deacon, Capri Karla ANP-BC Unavailable Unavailable Deacon, Capri Karla ANP-BC Unavailable Unavailable Deacon, Capri Karla ANP-BC Unavailable Unavailable Deacon, Capri Karla ANP-BC Unavailable Unavailable Deacon, Capri Karla ANP-BC Unavailable Unavailable Deacon, Capri Karla ANP-BC Unavailable Unavailable Deacon, Capri Karla ANP-BC Unavailable Unavailable Deacon, Capri Karla ANP-BC Unavailable Unavailable Deacon, Capri Karla ANP-BC Unavailable Unavailable Deacon, Capri Karla ANP-BC Unavailable Unavailable Deacon, Capri Karla ANP-BC Unavailable Unavailable Deacon, Capri Karla ANP-BC Unavailable Unavailable Deacon, Capri Karla ANP-BC Unavailable Unavailable Re-disclosure Warning The records that you are about to access may contain information from federally-assisted alcohol or drug abuse programs. If such information is present, then the following federally mandated warning applies: This information has been disclosed to you from records protected by federal confidentiality rules (42 CFR part 2). The federal rules prohibit you from making any further disclosure of this information unless further disclosure is expressly permitted by the written consent of the person to whom it pertains or as otherwise permitted by 42 CFR part 2. A general authorization for the release of medical or other information is NOT sufficient for this purpose. The Federal rules restrict any use of the information to criminally investigate or prosecute any alcohol or drug abuse patient.The records that you are about to access may contain highly sensitive health information, the redisclosure of which is protected by Article 27-F of the [facility] Public Health law. If you continue you may have access to information: Regarding HIV / AIDS; Provided by facilities licensed or operated by the [facility] Office of Mental Health; or Provided by the [facility] Office for People With Developmental Disabilities. If such information is present, then the following [facility] mandated warning applies: This information has been disclosed to you from confidential records which are protected by state law. State law prohibits you from making any further disclosure of this information without the specific written consent of the person to whom it pertains, or as otherwise permitted by law. Any unauthorized further disclosure in violation of state law may result in a fine or skilled nursing sentence or both. A general authorization for the release of medical or other information is NOT sufficient authorization for further disc losure. Encounters Encounter Providers Location Date Indications Data Source(s ) Emergency Attender: DAWSON ANDERSONConsultant: [facility] 09:40:[address] [facility] - 07/03/2020 12:50:00 PM [facility] Patient discharged. Outpatient Attender: Vane Payne NPConsultant: Karla DORMAN 07/03/2020 08:46:[address] [facility] - 07/03/2020 08:46:00 AM [facility] Outpatient Attender: Karla MOODY 03/27 01:09:[address] [facility] - 04/19/2020 01:09:00 PM [facility] Outpatient Attender: Karla MOODY 03/27 07:53:00 AM [facility] 04/14/2020 07:53:00 AM [facility] Outpatient Attender: Karla MOODY 06/2019 08:33:00 AM EDT - 10/26/2019 08:33:00 AM [facility] Outpatient Attender: Karla MOODY 09/24 01:01:00 PM EDT - 10/20/2019 01:01:00 PM EDT [facility] Outpatient Attender: Karla [facility] 09/24 01:00:00 PM EDT [facility] ([facility]) Outpatient Attender: BO SEGOVIA STEEL FINISHER [facility] 11/2019 08:58:00 AM EST - 06/01/2019 08:59:00 AM EST [facility] Patient discharged. Outpatient Attender: BO SEGOVIA STEEL FINISHER ED-[facility] 04/2019 09:13:00 AM EST - 05/06/2019 09:14:00 AM EST [facility] Patient discharged. Immunizations Vaccine Date Status Description Data Source(s) VARICELLA-ZOSTER VIRUS GLYCOPROTEIN E,REC/AS01B ADJUVA NT/PF 03/12/2020 12:00:00 AM EDT completed [facility] PNEUMOCOCCAL 13-VALENT CONJUGATE VACCINE (DIPHTHERIA C RM)/PF 03/05/2020 12:00:00 AM EDT completed [facility] INFLUENZA VACCINE QUADRIVALENT (65 YR UP)/MF59 C.1/PF 02/27/2020 12:00:00 AM EDT completed [facility] Medications Medication Brand Name Start Date Product Form Dose Route Admi nistrative Instructions Pharmacy Instructions Status Indications Reaction Description Data Source(s) Clonidine Hydrochloride 0.1 MG Oral Tablet CLONIDINE HCL 05/29/2020 12:00:00 AM EST tablet 90 TAKE ONE TABLET BY MOUTH JUAN DIEGO DAY TAKE ONE TABLET BY MOUTH EVERY DAY SOLD: 05/31/2020 [facility] atorvastatin 20 MG Oral Tablet ATORVASTATIN CALCIUM 04/21/2020 1 2:00:00 AM EST tablet 90 TAKE ONE TABLET BY MOUTH EVERY E VENING TAKE ONE TABLET BY MOUTH EVERY EVENING SOLD: 04/22/2020 [facility] 20 mg 04/19/2020 12:00:00 AM EST tablet,delayed release (DR/EC) 90 TAKE ONE TABLET BY MOUTH EVERY DAY TAKE ONE TABLET BY MOUTH EVERY DAY SOLD: 04/22/2020 [facility] pantoprazole 20 MG Delayed Release Oral Tablet Pantoprazole Sodium 04/19/2020 12:00:00 AM EST ORAL active [facility] ([facility]) Magnesium Oxide 400 MG Oral Tablet Magnesium Oxide 04/19/2020 12:00 :00 AM EST ORAL active [facility] ([facility]) Fenofibrate 48 MG Oral Tablet FENOFIBRATE NANOCRYSTALLIZED 1 12:00:00 AM EDT tablet 90 TAKE ONE TABLET BY MOUTH JUAN DIEGO DAY TAKE ONE TABLET BY MOUTH EVERY DAY SOLD: 06/19/2020 [facility] Fenofibrate 48 MG Oral Tablet FENOFIBRATE NANOCRYSTALLIZED 1 12:00:00 AM EDT tablet 90 TAKE ONE TABLET BY MOUTH JUAN DIEGO DAY TAKE ONE TABLET BY MOUTH EVERY DAY SOLD: 03/08/2020 [facility] 100 mg 03/02/2020 12:00:00 AM EDT tablet 90 TAKE ONE TABLET BY MOUTH EVERY DAY TAKE ONE TABLET BY MOUTH EVERY DAY SOLD: 05/31/2020 [facility] Clonidine Hydrochloride 0.1 MG Oral Tablet CLONIDINE HCL 03/02/2020 12:00:00 AM EDT tablet 90 TAKE ONE TABLET BY MOUTH TAKE ONE TABLET BY MOUTH EVERY DAY SOLD: 03/05/2020 [facility] 100 mg 03/02/2020 12:00:00 AM EDT tablet 90 TAKE ONE TABLET BY MOUTH EVERY DAY TAKE ONE TABLET BY MOUTH EVERY DAY SOLD: 03/05/2020 [facility] pantoprazole 40 MG Delayed Release Oral Tablet PANTOPRAZOLE SODIUM 11/28/2019 12:00:00 AM EDT tablet,delayed release (DR/EC) 90 T COLIN ONE TABLET BY MOUTH EVERY DAY TAKE ONE TABLET BY MOUTH EVERY DAY SOLD: 03/05/2020 [facility] 40 mg 11/28/2019 12:00:00 AM EDT tablet,delayed release (DR/EC) 90 TAKE ONE TABLET BY MOUTH EVERY DAY TAKE ONE TABLET BY MOUTH EVERY DAY SOLD: 12/06/2019 [facility] 100 mg 08/31/2019 12:00:00 AM EDT tablet 90 TAKE ONE TABLET BY MOUTH EVERY DAY TAKE ONE TABLET BY MOUTH EVERY DAY SOLD: 09/04/2019 [facility] 100 mg 08/31/2019 12:00:00 AM EDT tablet 90 TAKE ONE TABLET BY MOUTH EVERY DAY TAKE ONE TABLET BY MOUTH EVERY DAY SOLD: 12/06/2019 [facility] Clonidine Hydrochloride 0.1 MG Oral Tablet CLONIDINE HCL 07/10/2019 12:00:00 AM EST tablet 90 TAKE ONE TABLET BY MOUTH JUAN DIEGO DAY TAKE ONE TABLET BY MOUTH EVERY DAY SOLD: 07/15/2019 [facility] Clonidine Hydrochloride 0.1 MG Oral Tablet CLONIDINE HCL 07/10/2019 12:00:00 AM EST tablet 54 TAKE ONE TABLET BY MOUTH JUAN DIEGO DAY TAKE ONE TABLET BY MOUTH EVERY DAY SOLD: 10/13/2019 [facility] 40 mg 06/14/2019 12:00:00 AM EST tablet,delayed release (DR/EC) 90 TAKE ONE TABLET BY MOUTH EVERY DAY TAKE ONE TABLET BY MOUTH EVERY DAY SOLD: 09/04/2019 [facility] 40 mg 06/14/2019 12:00:00 AM EST tablet,delayed release (DR/EC) 90 TAKE ONE TABLET BY MOUTH EVERY DAY TAKE ONE TABLET BY MOUTH EVERY DAY SOLD: 06/17/2019 [facility] Losartan Potassium 100 MG Oral Tablet LOSARTAN POTASSIUM 12:00:00 AM EST tablet 90 TAKE ONE TABLET BY MOUTH TAKE ONE TABLET BY MOUTH EVERY DAY SOLD: 06/03/2019 [facility] Clonidine Hydrochloride 0.1 MG Oral Tablet CLONIDINE HCL 04/20/2019 12:00:00 AM EST tablet 90 TAKE ONE TABLET BY MOUTH TAKE ONE TABLET BY MOUTH EVERY DAY SOLD: 12/06/2019 [facility] Fenofibrate 48 MG Oral Tablet FENOFIBRATE NANOCRYSTALLIZED 1 12:00:00 AM EDT tablet 90 TAKE ONE TABLET BY MOUTH JUAN DIEGO TAKE ONE TABLET BY MOUTH EVERY DAY SOLD: 06/03/2019 [facility] 48 mg 03/04/2019 12:00:00 AM EDT tablet 90 TAKE ONE TABLET BY MOUTH EVERY DAY TAKE ONE TABLET BY MOUTH EVERY DAY SOLD: 09/16/2019 [facility] 40 mg 11/20/2018 12:00:00 AM EDT tablet,delayed release (DR/EC) 30 TAKE ONE TABLET BY MOUTH EVERY DAY TAKE ONE TABLET BY MOUTH EVERY DAY SOLD: 05/23/2019 [facility] Insurance Providers Payer name Policy type / Coverage type Policy ID Covered green party ID Covered green party's relationship to luna Policy Luna Plan Information TOD[employer]YS OPTIONSDO NOT USE [id number] SP [id number] WELLCARE -O/P [id number] 18 [id number] [place] [id number] 18 [id number] WELLCARE [id number] S [id number] TOD[employer] OPTIONS [place] [id number] S [id number] TODAYS OPTIONS -CLINIC [id number] 18 [id number] TOD[place]YS OPTIONS OF [place] [id number] SP [id number] TODAYS OPTIONS/[place] P [id number] S [id number] [place] [id number] [place] [id number] Problems, Conditions, and Diagnoses Code Display Name Description Problem Type Effective Dates Data Source(s) Age-related osteoporosis without current pathological fracture Age-related osteoporosis without current pathological fracture Problem 12:00:00 AM EST [facility] ([facility]) [id number] Taking medication Taking medication Problem 04/19 12:00:00 AM EST [facility] ([facility]) [id number] Gastroesophageal reflux disease Gastroesophageal reflux disease Problem 04/19/2020 12:00:00 AM EST [facility] ([facility]) [id number] Essential hypertension Essential hypertension Problem 04/19/2020 12:00:00 AM EST [facility] ([facility]) [id number] Pure hyperglyceridemia Pure hyperglyceridemia Problem 04/19/2020 12:00:00 AM EST [facility] ([facility]) [id number] Pure hypercholesterolemia Pure hypercholesterolemia Pr oblem 04/19/2020 12:00:00 AM EST [facility] ([facility]) K219 Gastro-esophageal reflux disease without esophagitis Gastro-esophageal reflux disease without esophagitis Diagnosis 04/14/2020 07:53:00 AM ES T [facility] N1830 Chronic kidney disease, stage 3 unspecif ied Chronic kidney disease, stage 3 unspecified Diagnosis 04/14/2020 07:53:00 AM [facility] [id number] Other emt intermediate (current) drug therapy O ther fpc (current) drug therapy Diagnosis 04/14/2020 07:53:00 AM [facility] E781 Pure hyperglyceridemia Pure hyperglyceridemia Diagnosi s 04/14/2020 07:53:00 AM [facility] E7800 Pure hypercholesterolemia, unspecified P ure hypercholesterolemia, unspecified Diagnosis 04/14/2020 07:53:00 AM [facility] N183 Chronic kidney disease, stage 3 (moderat e) Chronic kidney disease, stage 3 (moderate) Diagnosis 10/26/2019 08:33:00 AM EDT [facility] M810 Age-related osteoporosis without current pathological fracture Age-related osteoporosis without current pathological fracture Diagnosis 01:01:00 PM EDT [facility] I10 Essential (primary) hypertension Essential (primary) h ypertension Diagnosis 10/20/2019 01:01:00 PM EDT [facility] E87.6 Hypokalemia HYPOKALEMIA Diagnosis 06/01/2019 08:58:00 AM [facility] N18.3 Chronic kidney disease, stage 3 (moderat e) CHRONIC KIDNEY DISEASE, STAGE 3 (MODERATE) Diagnosis 06/01/2019 08:58:00 AM [facility] M81.0 Age-related osteoporosis without current pathological fracture AGE-RELATED OSTEOPOROSIS W/O CURRENT PATHOLOGICAL FRACTURE Diagnosis 020 08:58:00 AM [facility] E78.5 Hyperlipidemia, unspecified HYPERLIPIDEMIA, UNSPECIFIE D Diagnosis 06/01/2019 08:58:00 AM [facility] K21.9 Gastro-esophageal reflux disease without esophagitis GASTRO-ESOPHAGEAL REFLUX DISEASE WITHOUT ESOPHAGITIS Diagnosis 06/01/2019 08:58:00 AM [facility] I10 Essential (primary) hypertension ESSENTIAL (PRIMARY) H YPERTENSION Diagnosis 06/01/2019 08:58:00 AM [facility] Surgeries/Procedures Procedure Description Date Indications Data Source(s) Brief Emotional/Behav Assessment W/ Scoring Doc Per Standard Inst 10/20/2019 12:00:00 AM [facility] ([facility]) Admin Patient Focused Health Risk Assessment Instrument 10/20/2019 12:00:00 AM [facility] ([facility]) Hospital outpatient clinic visit for assessment and ma nagement of a patient Hospital Outpatient Clinic Visit 06/01/2019 12:00:00 AM [facility] Results ID Date Data Source [id number] 07/04/2020 09:35:00 AM [facility] [address] [place] [address] PHONE: [phone] FAX: [phone] Name .................. : TESS Donaldson Acct Number.................. : [id number] ROOM. ................. : TR-[id number] MR Number ................... : [id number] Stay type ............. : E/R Discharge Date......... ... : 07/03/20 Admit Date ... ...... : 07/03/20 Admit Phys .................... : JUSTIN BRADSHAW Date of ....... : 1945 Family Phys ................... : DEACON RODRIGUEZ Phone .................. : [phone] Age ................................ : 75 Film# .................. .:[id number] Sex ................................. : F Unsigned transcriptions are preliminary reports and do not represent a medical or legal document CHEST PORTABLE [id number] COMPLETE:07/03/20 13:12 [facility] 3827 Reason(s): HTN PORTABLE CHEST X-RAY: INDICATION: Hypertension. FINDINGS: Lung hernandez are hyperinflated. No focal infiltrate or consolidation is identified. A large hiatal hernia is identified. The cardiac silhouette is otherwise grossly unremarkable. The osseous structures show degenerative changes. IMPRESSION: COPD. Large hiatal hernia. Examination dictated by BENOIT Foote. Examination was reviewed with Chanell Larios MD, radiologist at the time of this dictation. Electronically Reviewed and Signed By Chanell Larios MD , 07/04/20 09:35, KGG Transcribe Initials: DZ , Transcribe Date: 07/04/20 00:22, Dictation Date: Copy for: EMERGENCY DEPT via modem Copy for: 710 MED REC DISCHARGED Page 1 of 1 Name Value Range Interpretation Code Description Data Zelda rce(s) Supporting Document(s) ID Date Data Source [id number] 07/04/2020 08:45:00 [place] [address] RESPIRATORY CARE REPORT ==== ---------NAME------- NUMBER SEX AGE ADMIT DISC. XRAY# F/C TYPEMCGILELO JOSÉ MIGUEL Donaldson [id number] F 75 07/03/20 07/03/20 [id number] E/R DATE OF : 1945 M/R# [id number] #: [id number] TR-02 LOCATION: EMERGENCY DEPT EKG [id number] COMPLE TE:07/03/20 13:19 ED [id number] PHYSICIAN: JUSTIN BRADSHAW Name Value Range Interpretation Code Description Data Zelda rce(s) Supporting Document(s) ID Date Data Source [id number] 07/03/2020 09:40:00 AM [facility] 1 OrderSheet [facility] Emergency Department [address] [place] [address] Phone #: ext- [phone] 07/03/2020 09:32 Patient: JOSÉ MIGUEL PULIDO Sex: F : 1945 Age: 75yWEIGHT:40.8 kg (S) HEIGHT:61 inches (S) BMI:17.0ALLERGIES: No Known Drug AllergyCHIEF COMPLAINT: elevated, PCPDIAGNOSIS: Hypertensive disorderLAB ORDERSOrder Description Priority Entered Acknowledged InitialedCBC w Diff STAT 10:07/03/2020 10:25 Justin Dewitt Riccardo Jennifer R.N. M.D.;CMP STAT 10:07/03/2020 10:25 Justin Dewitt Riccardo Jennifer R.N. M.D.;Lipase STAT 10:07/03/2020 10:25 Justin Dewitt Riccardo Jennifer R.N. M.D.;PT/PTT STAT 10:07/03/2020 10:25 Justin Dewitt Riccardo Jennifer R.N. M.D.;Troponin-T STAT 10:07/03/2020 10:25 Justin Dewitt Riccardo Jennifer R.N. M.D.;BNP STAT 10:07/03/2020 10:25 Justin Dewitt Riccardo Jennifer R.N. M.D.;TSH STAT 10:07/03/2020 10:25 Justin Dewitt Riccardo Jennifer R.N. M.D.;D-Dimer STAT 10:07/03/2020 10:25 Justin Dewitt Riccardo Jennifer R.N. M.D.;Urinalysis (Clean STAT 10:07/03/2020 10:30 Esdras,Catch) Bianka Dewitt R.N. R.N.; Verbal order per; Dawson Anderson M.D.DIAGNOSTIC STUDY ORDERS 2 OrderSheet [facility] Emergency Department [address] [place] [address] Phone #: ext- [phone] 07/03/2020 09:32 Patient: JOSÉ MIGUEL PULIDO Sex: F : 1945 Age: 75yOrder Description Priority Entered Acknowledged InitialedChest Portable 1 STAT 10:07/03/2020 Ack'd: 10:25 10:33 EsdrasView Justin, Bianka Huang R.N.(Oxygen?(No)) MRosemary; R.N. Reason for Study: HTNMEDICATION/IV/DRIP/FLUID ORDERSOrder Description Priority Entered Acknowledged InitialedcloNIDine PO 0.1 10:07/03/2020 10:32 Esdras,mg Justin, Dawson Carlton R.N., M.D.;GENERAL ORDERSOrder Description Priority Entered Acknowledged InitialedBlood Pressure 10:07/03/2020 10:25 BurnhamMonitor Justin Dawson site superintendentHans M.D.; Nalt9Xebhjxk Monitor 10:07/03/2020 10:25 Murali(continuous) Justin Dawson site superintendentHans M.D.; Yjdc5GHP 10:07/03/2020 10:25 Murali Turshorty Dawson site superintendentHans M.D.; Flmr5PHU 10:07/03/2020 10:25 Murali Turshorty Dawson site superintendentHans M.D.; Gyes4Hutawa Old EKG 10:07/03/2020 10:25 Rolfe Turshorty Dawson site superintendentHans M.D.; Fzjb1Ixvvsn Old Records 10:07/03/2020 10:25 Murali Justin Dawson site superintendentHans M.D.; Zckb2Sgfxvs titrate to 10:07/03/2020 10:25 Yuwlpmq22% Justin Dawson site superintendentHans M.D.; Xsvt3Zyykt oximeter 10:07/03/2020 10:25 Rolfe(Continuous) Justin Dawson site superintendentHans M.D.; Mjpd7Rqalrb Lock 10:07/03/2020 10:25 Justin Dewitt Riccardo Jennifer R.N. M.D.;Vitals 10:22 07/03/2020 10:25 Murali 3 OrderSheet [facility] Emergency Department [address] [place] [address] Phone #: ext- [phone] 07/03/2020 09:32 Patient: JOSÉ MIGUEL PULIDO Sex: F : 1945 Age: 75y Dawson Anderson ED, Jesse ER M.D.; Enxn1Ezanhf every 15 10:23 07/03/2020 10:25 Burnhamminutes Dawson Anderson ED, Jesse ER M.D.; Tech1[Electronically signed by Bianka Dewitt R.N. (13:47 07/03/2020)][Electronically signed by Dawson Anderson M.D. (13:50 07/03/2020)][Electronically locked by Bianka Dewitt R.N. (13:47 07/03/2020)] Name Value Range Interpretation Code Description Data Zelda rce(s) Supporting Document(s) ID Date Data Source [id number] 07/03/2020 09:40:00 AM EST [facility] 1 Medication Reconciliation Report [facility] Emergency Department [address] [place] [address] Phone #: ext- [phone] 07/03/2020 09:32 Patient: JOSÉ MIGUEL PULIDO Sex: F : 1945 Age: 75yWeight: 40.8 kgHeight/Length: 61 in.BMI: 17.0ALLERGIES: No Known Drug AllergyThe patient's Home Medications are listed below:CONTINUE TAKING THE FOLLOWING MEDICATIONS: Atorvastatin Calcium Oral 20 mg, daily, at bedtime Caltrate 600+D Plus Minerals Oral, 2x a day cloNIDine HCl Oral 0.1 mg, daily, last dose: 07/03/2020 Fenofibrate Oral (48 mg) 1 tablet, daily Hair Skin Nails Oral, daily Losartan Potassium Oral 100 mg, daily, last dose: 07/03/2020 Pantoprazole Sodium Oral 40 mg, daily Vitamin E Oral 180 mg, dailyThe source(s) of the original Home Medication information:patientThe following Medications were given to the patient in the Emergency Department:Clonidine [PO] PO 0.1 mg, administered: 10:32 07/03/2020The following Medications were prescribed to the patient:None. Name Value Range Interpretation Code Description Data Zelda rce(s) Supporting Document(s) ID Date Data Source [id number] 07/03/2020 09:40:00 AM [facility] 1 Medication Administration Record [facility] Emergency Department [address] [place] [address] Phone #: ex m- [phone] 07/03/2020 09:32 Patient: JOSÉ MIGUEL PULIDO Sex: F : 1945 Age: 75yWeight: 40.8 kgHeight/Length: 61 inBMI: 17ALLERGIES: No Known Drug Allergy Date/Time Medication Administered Medication OrderedGiven CLONIDINE [PO] cloNIDine PO 0.1 mg10:32 07/03/2020 Dose: 0.1 mg Tablets Bianka Martinez R.N. Name Value Range Interpretation Code Description Data Zelda rce(s) Supporting Document(s) ID Date Data Source [id number] 07/03/2020 09:40:00 AM [facility] 1 General Instructions [facility] Emergency Department [address] [place] [address] Phone #: ext- [phone] 07/03/2020 09:32 Patient: JOSÉ MIGUEL PULIDO [facility]#: [id number] Sex: F : 1945 Age: 75yEssential hypertension.INSTRUCTIONS No strenuous activity until better. (PLEASE TAKE YOUR BLOOD PRESSURE 3 TIMES PER DAY AND FOLLOW UP WITH YOUR DOCTOR IN NEXT 5 DAYS FOR MEDICATION ADJUSTMENT).Warnings: Further evaluation is necessary. It is very important to follow up with a healthcare provider.GENERAL WARNINGS: Return or contact your physician immediately if your condition worsens orchanges unexpectedly, if not improving as expected, or if other problems arise. Specifically return if pain,vomiting, bleeding, breathing difficulty or fever greater than 102 degrees F and not controlled byacetaminophen.Your Current Medications: Your current home medications have been reviewed.CONTINUE TAKING THE FOLLOWING MEDICATIONS:Atorvastatin Calcium Oral : 20 mg daily, at bedtime.Caltrate 600+D Plus Minerals Oral : 2x a day.cloNIDine HCl Oral : 0.1 mg daily, Last: .Fenofibrate Oral : Tablet 48 mg, 1 tablet daily.Hair Skin Nails Oral : daily.Losartan Potassium Oral : 100 mg daily, Last: 07/03/2020.Pantoprazole Sodium Oral : 40 mg daily.Vitamin E Oral : 180 mg daily.Follow-up:Return to the emergency department as needed. Follow up with your healthcare provider in three dayseven if well. Call for an appointment. Reason for referral: evaluation and treatment. Summary of careprovided to patient via paper.Understanding of the discharge instructions verbalized by patient. Expected course of illness, dischargeinstructions, activity level, diet, follow-up appointment and risks and benefits of treatment reviewed withpatient and understanding verbalized. Agrees to plan of care. ADDITIONAL INFORMATIONEstablished High Blood Pressure 2 General Instructions [facility] Emergency Department [address] [place] [address] Phone #: ext- [phone] 07/03/2020 09:32 Patient: JOSÉ MIGUEL PULIDO Sex: Diane : 1945 Age: 75yHigh blood pressure (hypertension) is a long-term (chronic) disease. Often healthcare providers don'tknow what causes it. But it can be caused by certain health conditions and medicines.If you have high blood pressure, you may not have any symptoms. If you do have symptoms, theymay include: Headache Dizziness Changes in your vision Chest pain Shortness of breathBut even without symptoms, high blood pressure that's not treated raises your risk for heart attack,heart failure, kidney disease, and stroke. High blood pressure is a serious health risk and shouldn't beignored.Blood pressure measurements are given as 2 numbers. Systolic blood pressure is the upper number.This is the pressure when the heart contracts. Diastolic blood pressure is the lower number. This isthe pressure when the heart relaxes between beats. You will see your blood pressure readingswritten together. For example, a person with a systolic pressure of 118 and a diastolic pressure of 78will have 118/78 written in the medical record.Blood pressure is classified as normal, raised (elevated) or stage 1 or stage 2 high blood pressure: Normal blood pressure. Systolic of less than 120 and diastolic of less than 80 (120/80). Elevated blood pressure. Systolic of 120 to 129 and diastolic less than 80. Stage 1 high blood pressure. Systolic is 130 to 139 or diastolic between 80 to 89. Stage 2 high blood pressure. Systolic is 140 or higher or the diastolic is 90 or higher.Home care 3 General Instructions [facility] Emergency Department [address] [place] [address] Phone #: ext- [phone] 07/03/2020 09:32 Patient: JOSÉ MIGUEL PULIDO Sex: F : 1945 Age: 75yIf you have high blood pressure, follow these home care guidelines to help lower your blood pressure.If you are taking medicines for high blood pressure, these methods may reduce or end your need formedicines in the future. Start a weight-loss program if you are overweight. Cut back on how much salt you get in your diet. Here's how to do this: o Don't eat foods that have a lot of salt. These include olives, pickles, smoked meats, and salted potato chips. o Don't add salt to your food at the table. o Use only small amounts of salt when cooking. Start an exercise program. Talk with your healthcare provider about the type of exercise program that would be best for you. It doesn't have to be hard. Even brisk walking for 20 minutes 3 times a week is a good form of exercise. Don't take medicines that stimulate the heart. This includes many sols-tyu-xygaibv cold and sinus decongestant pills and sprays, as well as diet pills. Check the warnings about high blood pressure on the label. Before buying any pnmy-pjj-emxrrga medicines or supplements, always ask the pharmacist about the product's possible interaction with your high blood pressure and your high blood pressure medicines. Stimulants such as amphetamine or cocaine could be deadly for someone with high blood pressure. Never take these. Limit how much caffeine you get in your diet. Switch to caffeine-free products. Stop smoking. If you are a long-time smoker, this can be hard. Talk with your healthcare provider about medicines and nicotine replacement options to help you. Also join a stop-smoking program . This makes it more likely that you will quit for good. Learn how to handle stress. This is an important part of any program to lower blood pressure. Learn about relaxation methods such as meditation, yoga, or biofeedback. If your provider prescribed medicines, take them exactly as directed. Missing doses may cause your blood pressure get out of control. If you miss a dose, check with your healthcare provider or pharmacist about what to do. Think about buying an automatic blood pressure machine to check your blood pressure at home. Ask your provider for a recommendation. You can get one of these at most pharmacies.Using a home blood pressure monitor 4 General Instructions [facility] Emergency Department [address] [place], [place] [id number] Phone #: ext- [phone] 07/03/2020 09:32 Patient: JOSÉ MIGUEL PULIDO Sex: F : 1945 Age: 75yThe [place] [employer] Association advises the following guidelines for home blood pressure monitoring: Don't smoke or drink coffee for 30 minutes before taking your blood pressure. Go to the bathroom before the test. Relax for 5 minutes before taking the measurement. Sit with your back supported (don't sit on a couch or soft chair). Keep your feet on the floor uncrossed. Place your arm on a solid flat surface (such as a table) with the upper part of the arm at heart level. Place the middle of the cuff directly above the bend of the elbow. Check the monitor's instruction manual for an illustration. Take multiple readings. When you measure, take 2 to 3 readings one minute apart and record all of the results. Take your blood pressure at the same time every day, or as your healthcare provider advises. Record the date, time, and blood pressure reading. Take the record with you to your next healthcare appointment. If your blood pressure monitor has a built-in memory, just take the monitor with you to your next appointment. Call your provider if you have several high readings. Don't be frightened by one high blood pressure reading. But if you get a few high readings, check in with your healthcare provider.Follow-up careYou will need to see your healthcare provider regularly. This is to check your blood pressure and tomake changes to your medicines. Make a follow-up appointment as directed. Bring the record of yourst. [facility] blood pressure readings to the appointment.Call [phone] you have any of these: Blood pressure of 180/120 or higher Chest pain or shortness of breath Weakness of an arm or leg or one side of the face Problems speaking or seeingWhen to get medical adviceCall your healthcare provider right away if any of these occur: 5 General Instructions [facility] Emergency Department [address] [place] [address] Phone #: ext- [phone] 07/03/2020 09:32 Patient: JOSÉ MIGUEL PULIDO Sex: F : 1945 Age: 75y Severe headache Throbbing or rushing sound in the ears Nosebleed Sudden severe pain in your belly (abdomen) Extreme drowsiness, confusion, or fainting Dizziness or spinning feeling (vertigo) [id number] [place] [address]. All rights reserved. This information is not intended as asubstitute for professional medical care. Always follow your healthcare professional's instructions. You have been given the following additional information: Hypertension, Established No strenuous activity until better.(Electronically signed by Dawson Anderson M.D. 07/03/2020 13:50) Name Value Range Interpretation Code Description Data Zelda rce(s) Supporting Document(s) ID Date Data Source [id number] 07/03/2020 09:40:00 AM [facility] 1 Clinical Report - Nurses [facility] Emergency Department [address] [place] [address] Phone #: ext- [phone] 07/03/2020 09:32 Patient: JOSÉ MIGUEL PULIDO Sex: F : 1945 Age: 75yTRIAGEArrived by EMS. Historian: patient.Triage time: 09:33 07/03/2020. Acuity: LEVEL 3.Chief Complaint: (High blood pressure). BLOOD PRESSURE ELEVATED. Checked by PCP SBP 200 perPCP.Alert. No acute distress.This started yesterday. ( Per EMS pt has been shoveling the past few days and felt that her BP was high;BP per EMS was 201/112, STach 112. Pt went to PCP at [facility] who called EMS for high BP.).Treatment LEGAL TRANSCRIBER:None.EMS Treatment LEGAL TRANSCRIBER:See EMS report.SEPSIS SCREEN: SIRS SCREEN NEGATIVE. SEPSIS SCREEN NEGATIVE. No suspected or confirmedsigns of infection present. (09:43 07/03/2020).MILE COMA SCORE: 15- eyes open- spontaneous (4); best verbal response- oriented (5); bestmotor response- obeys commands (6). --09:45 07/03/20 Bianka Dewitt R.N.09:33 07/03/20. BP: 200/101. MAP: 134. HR: 125. RR: 24. O2 saturation: 98% on room air. Temp: 97.9 F(oral). Pain level now: 0/10. --09:45 07/03/20 Bianka Dewitt R.N.Weight: 40.8 kg stated. Height/Length: 61 inches Per Patient. BMI: 17. --09:33 07/03/20 Bianka Dewitt R.N.MedicationscloNIDine HCl Oral 0.1 mg, daily, last dose 07/03/2020. --09:38 07/03/20 Bianka Dewitt R.N. Pantoprazole Sodium Oral 40 mg, daily. --09:38 07/03/20 Bianka Dewitt R.N. Losartan Potassium Oral 100 mg, daily, last dose 07/03/2020. --09:39 07/03/20 Bianka Dewitt R.N. Fenofibrate Oral (Tablet 48 mg) 1 tablet, daily. --09:39 07/03/20 Bianka Dewitt R.N. Atorvastatin Calcium Oral 20 mg, daily at bedtime. --09:39 07/03/20 Bianka Dewitt R.N. Caltrate 600+D Plus Minerals Oral, 2x a day. --09:40 07/03/20 Bianka Dewitt R.N. Hair Skin Nails Oral, daily. --09:40 07/03/20 Bianka Dewitt R.N. Vitamin E Oral 180 mg, daily. --09:40 07/03/20 Bianka Dewitt R.N.Allergies 2 Clinical Report - Nurses [facility] Emergency Department [address] [place] [address] Phone #: ext- [phone] 07/03/2020 09:32 Patient: JOSÉ MIGUEL PULIDO Sex: F : 1945 Age: 75yNo Known Drug Allergy. --09:40 07/03/20 Bianka Dewitt R.N.Medication/allergy information source: the patient. --09:45 07/03/20 Bianka Dewitt R.N.HistoryPAST MEDICAL HX: Immunizations: up-to-date and has received pneumonia PPSV23; has receivedseasonal influenza. The patient is post- menopausal.SOCIAL HX: Never smoker. No alcohol use or drug use. She was offered HIV testing but declined.Patient education was provided. She was offered hepatitis C testing but declined. Patient education wasprovided. ( COVID screen negative). She has not traveled outside the [place]Infectious disease exposure: No infectious disease exposure. The patient was not exposed to Coronavirus.Mask placed on patient. Patient is not a known carrier of tuberculosis, hepatitis, HIV, MRSA or VRE.Patient is not a known carrier of CRE.SELF HARM ASSESSMENT: Self harm assessment was performed. The patient answered "no" to thequestion(s) "Do you have thoughts of harming or killing yourself?" and "Do you have a plan for harming orkilling yourself?".ABUSE ASSESSMENT: Abuse assessment. The patient had positive responses to the question(s) "Do youfeel safe in your home?". Abuse denied. No suspicion of abuse. No report of abuse.NUTRITIONAL RISK ASSESSMENT: The nutritional risk assessment revealed no deficiencies.FUNCTIONAL ASSESSMENT: Functional assessment: no impairments noted.LEARNING NEEDS ASSESSMENT: The learning needs assessment revealed no barriers.FALL RISK ASSESSMENT: Fall risk assessment completed. Risk factors identified include patient agegreater than 65 years. Fall interventions initiated. Patient placed on stretcher. Side rails up x2. Bed in lowposition. Patient visible from nurses' station and identified as a fall risk. Electronic bed monitor in use. Calllight in reach of patient. Instructed not to get up without assistance. Instructions given to patient includingfall prevention information. Verbalizes understanding.SKIN INTEGRITY ASSESSMENT: Skin integrity risk assessment completed. No skin integrity riskidentified. --09:45 07/03/20 Bianka Dewitt R.N.InterventionsIdentification band on patient. --09:45 07/03/20 Bianka Dewitt R.N.09:36 07/03/2020 Site #1 started prior to arrival by EMS via IV in the left antecubital space with an 18gangiocath, with aseptic technique and good blood return; one attempt. Saline lock flushed with 10 mLsaline. --09:36 07/03/20 Bianka Dewitt R.N.PHYSICAL ASSESSMENT 3 Clinical Report - Nurses [facility] Emergency Department [address] [place] [address] Phone #: ext- [phone] 07/03/2020 09:32 Patient: JOSÉ MIGUEL PULIDO Sex: F : 1945 Age: 75y Ambulatory to room. GENERAL / NEURO / PSYCH: Alert. Oriented X 4. Appears in no acute distress. HEENT: No facial asymmetry noted. Mucous membranes are pink. RESPIRATORY: No respiratory distress. Respirations not labored. No chest wall tenderness. Decreased breath sounds in the left lung base anteriorly and posteriorly. CVS: Cardiac rhythm: sinus tachycardia. Capillary refill less than 2 seconds. Pulses within normal limits. GI / : Abdomen soft and nontender and normal bowel sounds. SKIN: Skin intact. Skin is warm and dry. Normal skin turgor. --10:24 07/03/20 Bianka Dewitt R.N.NURSING PROGRESS NOTESCardiac monitor, NIBP monitor and pulse oximeter placed on patient; electronic device monitor- Lead II; monitoralarms on; monitor strip added to paper chart. Patient gowned. Reassurance given. Three patientidentifiers checked. Call light placed in reach. Side rails up x 2. Bed placed in lowest position. Brakesof bed on. Patient ready for evaluation- ED physician notified. --09:45 07/03/20 Bianka Dewitt R.N. EKG time: (late entry - 09:43 07/03/2020). EKG was ordered, performed by a tech and shown to the ED physician. --09:46 07/03/20 Bianka Dewitt R.N. Patient ID band checked for patient name and birthdate: patient confirmed. Instructions provided to collect clean catch urine and patient verbalized understanding. Clean catch urine collected; sample sent to lab for urinalysis. Specimen labeled in the presence of the patient. --10:30 07/03/20 Bianka Dewitt R.N. Patient ID band checked for patient name and birthdate: patient confirmed. Blood samples drawn from the peripheral IV site by nurse per protocol ; labeled in presence of the patient and sent to lab. --10:30 07/03/20 Bianka Dewitt R.N. 10:32 07/03/2020 Clonidine PO Tablets 0.1 mg given. Allergies verified and confirmed 5 rights. Information reviewed with patient including reason for taking this medication, signs of allergic reaction and precautions. Verbalizes understanding. --10:32 07/03/20 Bianka Dewitt R.N. 10:32 07/03/20. BP: 171/94. MAP: 119. HR: 106. RR: 20. O2 saturation: 97% on room air. --10:33 07/03/20 Bianka Dewitt R.N. Portable chest x-ray completed. --10:33 07/03/20 Bianka Dewitt R.N. Reassessment acuity: LEVEL 3. Rounding: Pain: assessed pain level. Position: states comfortable. Personal care / toileting: assisted with toileting. Proximity of possessions / care items: call light within easy reach. Set expectations: advised patient of rounding protocol timing and asked if they needed anything else at this time. The patient reports no complaints, she is calm and resting quietly and she has had no adverse reaction. Overall patient status is improved- she states feels better. ( Pt ambulated to bathroom without incident.). RESPIRATORY: No respiratory distress. CVS: Denies chest pain. Cardiac rhythm: sinus tachycardia; (104). --11:17 07/03/20 Bianka Dewitt R.N. 4 Clinical Report - Nurses [facility] Emergency Department [address] [place] [address] Phone #: ext- [phone] 07/03/2020 09:32 Patient: JOSÉ MIGUEL PULIDO Sex: F : 1945 Age: 75y 11:17 07/03/20. BP: 165/90. MAP: 115. HR: 104. RR: 19. O2 saturation: 98%. Pain level now: 0/10. --11:17 07/03/20 Bianka Dewitt R.N. 10:00 07/03/20. BP: 184/99. MAP: 127. HR: 111. RR: 22. O2 saturation: 98%. --11:18 07/03/20 Bianka Dewitt R.N. 10:19 07/03/20. BP: 184/104. MAP: 130. HR: 122. O2 saturation: 95%. --11:18 07/03/20 Bianka Dewitt R.N. 10:45 07/03/20. BP: 178/93. MAP: 121. HR: 105. RR: 21. O2 saturation: 96%. --11:19 07/03/20 Bianka Dewitt R.N. 11:00 07/03/20. BP: 176/94. MAP: 121. HR: 108. RR: 24. O2 saturation: 96%. --11:19 07/03/20 Bianka Dewitt R.N. 11:30 07/03/20. BP: 166/90. MAP: 115. HR: 101. RR: 22. O2 saturation: 97%. --12:12 07/03/20 [place] [id number] 11:45 07/03/20. BP: 169/89. MAP: 115. HR: 101. RR: 23. O2 saturation: 97%. --12:13 07/03/20 [place] [address] 12:00 07/03/20. BP: 155/91. MAP: 112. HR: 101. RR: 22. O2 saturation: 97%. --12:13 07/03/20 [place] [address] 11:30 07/03/2020 Clonidine PO Response: no adverse reaction symptoms have improved the patient feels better. --13:45 07/03/20 Bianka Dewitt R.N. 12:15 07/03/20. BP: 164/91. MAP: 115. HR: 102. RR: 22. O2 saturation: 97%. --13:46 07/03/20 Bianka Dewitt R.N.DISPOSITION / DISCHARGE 12:32 07/03/20. BP: 171/89. MAP: 116. HR: 105. RR: 16. O2 saturation: 98%. Temp: 97.4 F. Pain level now: 0/10. --12:33 07/03/20 [place] [id number] 12:45 07/03/2020 Site #1 removed upon discharge. Manual pressure and bandaid applied. --12:45 07/03/20 [place] [id number] Departure time: late entry - 12:50 07/03/2020. Condition at departure: stable. No learning barriers present. Discharge instructions provided and reviewed with the patient. Reviewed warnings (please see paper copy). Activity restrictions reviewed. Patient verbalized understanding. Written instructions provided in Botswanan. The patient was discharged by the physician. She was discharged home and accompanied by lifestyle consultant. She left ambulatory and via private vehicle. Terminal Car[employer] driving. --13:45 07/03/20 Bianka Dewitt R.N. 5 Clinical Report - Nurses [facility] Emergency D epartment [address] [place] [address] Phone #: ext- [phone] 07/03/2020 09:32 Patient: JOSÉ MIGUEL PULIDO Sex: F : 1945 Age: 75y 12:50 07/03/20. BP: 172/98. ED physician notified. MAP: 122. HR: 107. HR. ED physician notified. RR: 18. O2 saturation: 97% on room air. Temp: 98.2 F (oral). Pain level now: 0/10. --13:45 07/03/20 Bianka Dewitt R.N. late entry - 12:50 07/03/20. ( MD Anderson aware of all VS and is okay with d/c.). --13:47 07/03/20 Bianka Dewitt R.N.Locked/Released at 07/03/2020 13:47 by Bianka Dewitt R.N. Name Value Range Interpretation Code Description Data Zelda rce(s) Supporting Document(s) ID Date Data Source [id number] 07/03/2020 09:40:00 AM EST [facility] 1 Clinical Report - Physicians/Mid Levels [facility] Emergency Department [address] [place] [address] Phone #: ext- [phone] 07/03/2020 09:32 Patient: JOSÉ MIGUEL PULIDO Sex: F : 1945 Age: 75y Time Seen: 09:45 07/03/2020; initial patient contact. Arrived- By ambulance. Historian- patient. Disposition decision: 12:43 07/03/2020.HISTORY OF PRESENT ILLNESS Chief Complaint: BLOOD PRESSURE ELEVATED 200/110. This started just prior to arrival yesterday and is still present. At its maximum, severity described as moderate. When seen in the E.D., severity described as moderate. The patient has had fatigue. (decrease energy; pt states did a lot of shoveling yesterday and felt her BP high by being tired and having low energy; no other Sx; ROS negative; pt takes Losartan in am and Clonidine in pm). Similar symptoms previously. Patient has had similar symptoms occasionally. ( has Hx of HTN).REVIEW OF SYSTEMSNo fever, sore throat, sinus drainage, nasal congestion or cough. No difficulty breathing, chest pain,abdominal pain, nausea or vomiting. No diarrhea, black stools, bloody stools, chills or difficulty withurination. No skin rash, back pain, calf pain, headache or blackouts. No double vision. No difficulty withambulation. All other systems reviewed and are negative.PAST HISTORYSee nurses notes. Problems: Gastroesophageal Reflux Disease. Hypertension. Hypercholesterolemia. Additional Surgeries: Hip Surgery. Medications: Vitamin E Oral 180 mg, daily. Hair Skin Nails Oral, daily. Caltrate 600+D Plus Minerals Oral, 2x a day. Atorvastatin Calcium Oral 20 mg, daily at bedtime. Fenofibrate Oral (Tablet 48 mg) 1 tablet, daily. Losartan Potassium Oral 100 mg, daily, last dose 07/03/2020. Pantoprazole Sodium Oral 40 mg, daily. cloNIDine HCl Oral 0.1 mg, daily, last dose 07/03/2020. 2 Clinical Report - Physicians/Mid Levels [facility] Emergency Department [address] [place] [address] Phone #: [phone] ext- [phone] 07/03/2020 09:32 Patient: JOSÉ MIGUEL PULIDO [facility]#: [id number] Sex: F : 1945 Age: 75y Allergies: No Known Drug Allergy.SOCIAL HISTORYNever smoker. No alcohol use or drug use.ADDITIONAL NOTESThe nursing notes have been reviewed with agreement regarding the chief complaint, HPI, ROS, PMH andpatient medications and allergies.PHYSICAL EXAMVital Signs: 07/03/2020 10:32 BP: 171/94. MAP: 119. HR: 106. RR: 20. O2 saturation: 97% on room air.07/03/2020 09:33 BP: 200/101. MAP: 134. HR: 125. RR: 24. O2 saturation: 98% on room air. Temp: 97.9F. Pain level now: 0/10. Have been reviewed. Hypertensive. Oxygen saturation nor mal.Appearance: Alert. No acute distress.Eyes: Pupils equal, round and reactive to light. Eyes normal inspection.ENT: Nose normal. Pharynx normal.Neck: Normal inspection. Neck supple.CVS: Tachycardia. Normal heart rhythm. Heart sounds normal. Pulses normal.Respiratory: No respiratory distress. Painless inspiration. Breath sounds normal. Chest nontender.Abdomen: No visible injury. Soft and nontender. Bowel sounds normal. No organomegaly. No mass.Femoral pulses equal.Back: Normal inspection.Skin: Skin warm and dry. Normal skin color. No rash. Normal skin turgor.Extremities: Extremities exhibit normal ROM. No lower extremity edema.Neuro: Oriented X 3. No motor deficit. No sensory deficit. Reflexes normal.LABS, X-RAYS, AND EKGEKG: No acute process. No acute ischemia. Tachycardia (121/min). Sinus tachycardia. Normal ST andT waves. Prior EKG unavailable. The study has been interpreted contemporaneously by me. The EKGappears to be a good tracing. Interpretation time: 09:49 07/03/2020.Chest X- ray: No acute disease. (large HH, COPD). Views: AP (portable). The X-rays were interpretedby the radiologist. Interpretation time: 10:48 07/03/2020.Laboratory Tests: Laboratory tests have been ordered, with results reviewed and considered in themedical decision making process. Urinalysis: ([place]: 07/03/2020 10:10) ( MsgRcvd 07/03/2020 10:52) Final results Test Result Flag Units (Reference) URINALYSIS URINALYSIS SOURCE Clean Catch COLOR yellow (NORMAL: Yello CLARITY clear (NORMAL: Clear SPEC GRAVITY 1.010 (1.001 - 1.030 pH 6.5 (5 - 9) GLUCOSE NORM (NORMAL: Negat BILIRUBIN NEG (NORMAL: Negat 3 Clinical Report - Physicians/Mid Levels [facility] Emergency Department [address] [place] [address] Phone #: ext- [phone] 07/03/2020 09:32 Patient: JOSÉ MIGUEL PULIDO Sex: F : 1945 Age: 75y KETONE NEG (NORMAL: Negat PROTEIN 100 A (NORMAL: Negat NITRITE NEG (NORMAL: Negat BLOOD 10 A (NORMAL: Negat LEUK EST NEG (NORMAL: Negat UROBILINOGEN NOR (less than 1.0 MICROSCOPIC See Below WBC 1 - 3 (NORMAL: NONE RBC 0 - 1 (NORMAL: NONE EPITHELIAL FEW (NORMAL: NONECBC w Diff: ([place]: 07/03/2020 10:28) ( MsgRcvd 07/03/2020 10:59) Final results Test Result Flag Units (Reference) CBC W/AUTOMATED DIFF COMPLETE BLOOD COUNT WBC 8.8 10/uL (4.2 - 11.0) RBC 4.15 L 10/uL (4.20 - 5.40) HEMOGLOBIN 12.1 g/dL (12.0 - 16.0) HEMATOCRIT 37.2 % (37.0 - 47.0) MCV 89.6 fL (81.0 - 101) MCH 29.2 pg (27.0 - 34.0) MCHC 32.5 g/dL (31.0 - 36.0) RDW 14.0 % (11.5 - 14.5) PLATELETS 267 10/uL (150 - 450) MPV 9.7 fL (7.4 - 10.4) NEUT 83.6 H % (37.0 - 80.0) LYMPH 11.9 L % (25.0 - 40.0) MONO 3.5 % (3.0 - 8.0) EOS 0.0 % (0.0 - 7.0) BASO 0.5 % (0.0 - 2.5) %IG 0.5 H % (0.0 - 0.0) %NRBC 0.0 % (0.0 - 0.0) #NEUT 7.35 H 10/uL (2.00 - 6.90) #LYMPH 1.05 10/uL (0.60 - 3.40) #MONO 0.31 10/uL (0.00 - 0.90) #EOS 0.00 10/uL (0.00 - 0.70) #BASO 0.04 10/uL (0.00 - 0.20) #IG 0.04 10/uL (0.00 - 0.10) #NRBC 0.00 10/uL (0.00 - 0.00) MANUAL DIFF SEE BELOW SEGS 87 H % (37 - 80) %LYMPH 9 L % (25 - 40) %MONO 4 % (3 - 8) RBC MORPH NOT INDICATEDCMP: ([place]: 07/03/2020 10:28) ( MsgRcvd 07/03/2020 11:53) Final results Test Result Flag Units (Reference) COMPREHENSIVE METABOLIC PANEL COMPREHENSIVE METABOLIC PANEL SODIUM 142 mEq/L (134 - 153) POTASSIUM 3.3 L mEq/L (3.6 - 5.0) CHLORIDE 105 mEq/L (98 - 107) CO2 23 MEQ/L (22 - 30) GLUCOSE 128 H MG/DL (70 - 99) BUN 14 MG/DL (7 - 21) CREATININE 0.9 MG/DL (0.7 - 1.5) BUN/CREAT 16 (8 - 27) TOTAL PROTEIN 7.0 G/DL (6.3 - 8.2) 4 Clinical Report - Physicians/Mid Levels [facility] Emergency Department [address] [place] [address] Phone #: ext- [phone] 07/03/2020 09:32 Patient: JOSÉ MIGUEL PULIDO Sex: F : 1945 Age: 75y ALBUMIN 4.6 G/DL (3.9 - 5.0) GLOBULIN 2.4 GM/DL (2.4 - 3.2) A/G RATIO 1.9 (0.8 - 2.0) CALCIUM 9.6 MG/DL (8.4 - 10.2) TOTAL BILI <0.7 MG/DL (0.2 - 1.3) ALKALINE PHOS 68 U/L (38 - 126) SGOT/AST 16 U/L (5 - 40) SGPT/ALT 11 U/L (7 - 56) ANION GAP 14.0 mmol/L (8.0 - 16.0) AGE 75 yrs NON-AA GFR >60 mL/min AFR AMER GFR >60 Male GFR Interprentation 20-49 yrs >60 mL/min Normal 50-59 yrs >56 mL/min Normal 60-69 yrs >49 mL/min Normal 70-79yrs >42 mL/min Normal 80 and above >35 mL/min Normal Female GFR Interpretation 20-39 yrs >60 mL/min Normal 40-49 yrs >58 mL/min Normal 50-59 yrs >51 mL/min Normal 60-69 yrs >45 mL/min Normal 70-79 yrs >39 mL/min Normal 80 and above >32 mL/min Normal Lipase: ([place]: 07/03/2020 10:28) ( MsgRcvd 07/03/2020 11:53) Final results Test Result Flag Units (Reference) LIPASE 12 L U/L (13 - 60) PT/PTT: ([place]: 07/03/2020 10:28) ( MsgRcvd 07/03/2020 10:51) Final results Test Result Flag Units (Reference) PROTIME 12.9 SECONDS (11.0 - 15.5) INR 0.93 (0.93 - 1.23) PTT 24.3 L SECONDS (24.8 - 36.7) \\BLDo\\INR INTERPRETATION\\BLDx\\ Therapeutic range for Coumadin and related oral anticoagulants. -International Normalized Ratio (INR): 2.0 - 3.0 for Venous Thrombosis, Pulmonary Embolus, Tissue heart valves, Acute RI Atrial Fibrillation, Valvular heart disease and recurrent Systemic Embolism. -International Normalized Ratio (INR): 2.5 - 3.5 for Mechanical Prosthetic valve. Troponin-T: ([place]: 07/03/2020 10:28) ( [facility] 07/03/2020 10:58) Final results Test Result Flag Units (Reference) TROPONIN T <0.01 NG/ML (0.00 - 0.10) TROPONIN T0.1 ng/ml Recommended as the clinical threshold value forTroponin T. BNP: ([place]: 07/03/2020 10:28) ( [facility] 07/03/2020 11:10) Final results Test Result Flag Units (Reference) BNP 289 PG/ML (0 - 450) TSH: ([place]: 07/03/2020 10:28) ( [facility] 11:10[facility] Final results Test Result Flag Units (Reference) TSH 0.65 uIU/mL (0.47 - 5.01) D-Dimer: ([place]: 07/03/2020 10:28) ( [facility] 07/03/2020 11:01) Final results Test Result Flag Units (Reference) D-DIMER QUANT 0.43 ug/mL (0.27 - 0.50). 5 Clinical Report - Physicians/Mid Levels [facility] Emergency Department [address] [place] [address] Phone #: ext- [phone] 07/03/2020 09:32 Patient: JOSÉ MIGUEL PULIDO Sex: F : 1945 Age: 75yPROGRESS AND PROCEDURESCourse of Care: 11:46 07/03/20. workup all in and reviewed and nml, incl. troponin, BNP, d-dimer, TSH;BP much better, most recent at 169/89, pt feeling great; has no CP, SOB, palpitations, etc.; wants to gohome; will observe some more 12:41 07/03/20. BP has normalized, pt feeling great, asymptomatic; wants to go home; will d/c w instructions to f/u w STATISTICAL METHODS PROFESSOR soon; she understands and agrees. Patient counseled in person regarding the patient's stable condition, test results, diagnosis and need for follow-up. Patient agrees with plan of care. Disposition: Condition: good and stable. Discharge decision based on the following: patient's condition is stable; patient's condition is improved; patient is ambulatory; patient is active; patient drinking fluids; patient eating; patient's pain is controlled; patient's exam is improved; no abnormal test results; improving condition on multiple repeat evaluations; social support is good; transportation is available; follow- up is available; clinical impression is consistent with outpatient treatment.CLINICAL IMPRESSION Essential hypertension.INSTRUCTIONS No strenuous activity until better. (PLEASE TAKE YOUR BLOOD PRESSURE 3 TIMES PER DAY AND FOLLOW UP WITH YOUR DOCTOR IN NEXT 5 DAYS FOR MEDICATION ADJUSTMENT). Warnings: Further evaluation is necessary. It is very important to follow up with a healthcare provider. GENERAL WARNINGS: Return or contact your physician immediately if your condition worsens or changes unexpectedly, if not improving as expected, or if other problems arise. Specifically return if pain, vomiting, bleeding, breathing difficulty or fever greater than 102 degrees F and not controlled by acetaminophen. Your Current Medications: Your current home medications have been reviewed. CONTINUE TAKING THE FOLLOWING MEDICATIONS: Atorvastatin Calcium Oral : 20 mg daily, at bedtime. Caltrate 600+D Plus Minerals Oral : 2x a day. cloNIDine HCl Oral : 0.1 mg daily, Last: 07/03/2020. Fenofibrate Oral : Tablet 48 mg, 1 tablet daily. Hair Skin Nails Oral : daily. 6 Clinical Report - Physicians/Mid Levels [facility] Emergency Department [address] [place] [address] Phone #: ext- [phone] 07/03/2020 09:32 Patient: JOSÉ MIGUEL PULIDO Sex: F : 1945 Age: 75y Losartan Potassium Oral : 100 mg daily, Last: 07/03/2020. Pantoprazole Sodium Oral : 40 mg daily. Vitamin E Oral : 180 mg daily. Follow-up: Return to the emergency department as needed. Follow up with your healthcare provider in three days even if well. Call for an appointment. Reason for referral: evaluation and treatment. Summary of care provided to patient via paper. Understanding of the discharge instructions verbalized by patient. Expected cour se of illness, discharge instructions, activity level, diet, follow-up appointment and risks and benefits of treatment reviewed with patient and understanding verbalized. Agrees to plan of care.(Electronically signed by Dawson Anderson M.D. 07/03/2020 13:50) Name Value Range Interpretation Code Description Data Zelda rce(s) Supporting Document(s) ID Date Data Source [id number] 07/03/2020 11:53:00 AM [facility] Name Value Range Interpretation Code Description Data Zelda rce(s) Supporting Document(s) Lipase [Enzymatic activity/volume] in Serum or Plasma 12 U/L 13 - 60 L [facility] ID Date Data Source [id number] 07/03/2020 11:53:00 AM [facility] Name Value Range Interpretation Code Description Data Zelda rce(s) Supporting Document(s) COMPREHENSIVE METABOLIC PANEL [facility] COMPREHENSIVE METABOLIC PANEL Sodium [Moles/volume] in Serum or Plasma 142 mEq/L 134 - 153 [facility] Potassium [Moles/volume] in Serum or Plasma 3.3 mEq/L 3.6 - 5.0 L [facility] Chloride [Moles/volume] in Serum or Plasma 105 mEq/L 98 - 107 [facility] Carbon dioxide, total [Moles/volume] in Serum or Plasma 23 MEQ/L 22 - 30 [facility] Glucose [Mass/volume] in Serum or Plasma 128 MG/DL 70 - 99 H [facility] BUN 14 MG/DL 7 - 21 [facility] al Creatinine [Mass/volume] in Serum or Plasma 0.9 MG/DL 0.7 - 1.5 [facility] BUN/CREAT 16 8 - 27 [facility] Protein [Mass/volume] in Serum or Plasma 7.0 G/DL 6.3 - 8.2 [facility] Albumin [Mass/volume] in Serum or Plasma 4.6 G/DL 3.9 - 5.0 [facility] Globulin [Mass/volume] in Serum by calculation 2.4 GM/DL 2.4 - 3.2 [facility] A/G RATIO 1.9 0.8 - 2.0 [facility] Calcium [Mass/volume] in Serum or Plasma 9.6 MG/DL 8.4 - 10.2 [facility] Bilirubin.total [Mass/volume] in Serum or Plasma <0.7 MG/DL 0.2 - 1.3 [facility] Alkaline phosphatase [Enzymatic activity/volume] in Serum or Plasma 68 U/L 38 - 126 [facility] Aspartate aminotransferase [Enzymatic activity/volume] in Serum or Plasma 16 U/L 5 - 40 [facility] Alanine aminotransferase [Enzymatic activity/volume] in Seru m or Plasma 11 U/L 7 - 56 [facility] Anion gap 3 in Serum or Plasma 14.0 mmol/L 8.0 - 16.0 [facility] AGE [address] [facility] al NON-AA GFR >60 mL/min [facility] ital AFR AMER GFR >60 [facility] Male GFR In terprentation 20-49 yrs >60 mL/min Normal 50-59 yrs >56 mL/min Normal 60-69 yrs >49 mL/min Normal 70-79yrs >42 mL/min Normal 80 and above >35 mL/min Normal Female GFR Interpretation 20-39 yrs >60 mL/min Normal 40-49 yrs >58 mL/min Normal 50-59 yrs >51 mL/min Normal 60-69 yrs >45 mL/min Normal 70-79 yrs >39 mL/min Normal 80 and above >32 mL/min Normal ID Date Data Source [id number] 07/03/2020 11:10:00 AM [facility] Name Value Range Interpretation Code Description Data Zelda rce(s) Supporting Document(s) Thyrotropin [Units/volume] in Serum or Plasma by Detec tion limit <= 0.05 mIU/L 0.65 uIU/mL 0.47 - 5.01 [facility] ID Date Data Source [id number] 07/03/2020 11:10:00 AM [facility] Value Range Interpretation Code Description Data Zelda rce(s) Supporting Document(s) BNP 289 PG/ML 0 - 450 [facility] ID Date Data Source [id number] 07/03/2020 11:00:00 AM [facility] Value Range Interpretation Code Description Data Zelda rce(s) Supporting Document(s) Fibrin D-dimer FEU [Mass/volume] in Platelet poor plasma 0.43 ug /mL 0.27 - 0.50 [facility] ID Date Data Source [id number] 07/03/2020 10:58:00 AM [facility] Value Range Interpretation Code Description Data Zelda rce(s) Supporting Document(s) CBC W/AUTOMATED DIFF [facility] COMPLETE BLOOD COUNT Leukocytes [#/volume] in Blood by Automated count 8.8 10^3/uL 4.2 - 1 1.0 [facility] Erythrocytes [#/volume] in Blood by Automated count 4.15 10^6/uL 4. 20 - 5.40 L [facility] Hemoglobin [Mass/volume] in Blood 12.1 g/dL 12.0 - 16.0 [facility] Hematocrit [Volume Fraction] of Blood by Automated count 37.2 % 3 7.0 - 47.0 [facility] Erythrocyte mean corpuscular volume [Entitic volume] by Auto mated count 89.6 fL 81.0 - 101 [facility] Erythrocyte mean corpuscular hemoglobin [Entitic mass] by Automated count 29.2 pg 27.0 - 34.0 [facility] Erythrocyte mean corpuscular hemoglobin concentration [Mass/volume] by Automated count 32.5 g/dL 31.0 - 36.0 [facility] Erythrocyte distribution width [Ratio] by Automated count 14.0 % 11.5 - 14.5 [facility] Platelets [#/volume] in Blood by Automated count 267 10^3/uL 150 - 45 0 [facility] Platelet mean volume [Entitic volume] in Blood by Automated count 9.7 fL 7.4 - 10.4 [facility] Neutrophils/100 leukocytes in Blood by Automated count 83.6 % 37. 0 - 80.0 H [facility] Lymphocytes/100 leukocytes in Blood by Manual count 11.9 % 25.0 - 40.0 L [facility] Monocytes/100 leukocytes in Blood by Automated count 3.5 % 3.0 - 8.0 [facility] Eosinophils/100 leukocytes in Blood by Automated count 0.0 % 0.0 - 7.0 [facility] Basophils/100 leukocytes in Blood by Automated count 0.5 % 0.0 - 2.5 [facility] %IG 0.5 % 0.0 - 0.[address] [facility] al %NRBC 0.0 % 0.0 - 0.0 [facility] al Neutrophils [#/volume] in Blood by Automated count 7.35 10^3/uL 2.00 - 6.90 H [facility] Lymphocytes [#/volume] in Blood by Automated count 1.05 10^3/uL 0.60 - 3.40 [facility] Monocytes [#/volume] in Blood by Automated count 0.31 10^3/uL 0.00 - 0.90 [facility] Eosinophils [#/volume] in Blood by Automated count 0.00 10^3/uL 0.00 - 0.70 [facility] Basophils [#/volume] in Blood by Automated count 0.04 10^3/uL 0.00 - 0.20 [facility] #IG 0.04 10^3/uL 0.00 - 0.10 [facility] #NRBC 0.00 10^3/uL 0.00 - 0.00 [facility] ospital MANUAL DIFF SEE BELOW [facility] Segmented neutrophils/100 leukocytes in Blood by Manual count 87 % 37 - 80 H [facility] %LYMPH 9 % 25 - 40 L [facility] %MONO 4 % 3 - 8 [facility] RBC MORPH NOT INDICATED [facility] ID Date Data Source [id number] 07/03/2020 10:58:00 AM [facility] Name Value Range Interpretation Code Description Data Zelda rce(s) Supporting Document(s) TROPONIN T <0.01 NG/ML 0.00 - 0.10 [facility] ospital TROPONIN T0.1 ng/ml Recommended as the c linical threshold value forTroponin T. ID Date Data Source [id number] 07/03/2020 10:51:00 AM [facility] Name Value Range Interpretation Code Description Data Zelda rce(s) Supporting Document(s) Prothrombin time (PT) 12.9 SECONDS 11.0 - 15.5 [facility] INR in Platelet poor plasma by Coagulation assay 0.93 0.93 - 1. 23 [facility] aPTT in Blood by Coagulation assay 24.3 SECONDS 24.8 - 36.7 L [facility] \\BLDo\\INR INTERPRETATION\\BLDx\\ Therapeutic range for Coumadin and related oral anticoagulants. - International Normalized Ratio (INR): 2.0 - 3.0 for Venous Thrombosis, Pulmonary Embolus, Tissue heart valves, Acute RI Atrial Fibrillation, Valvular heart disease and recurrent Systemic Embolism. - International Normalized Ratio (INR): 2.5 - 3.5 for Mechanical Prosthetic valve. ID Date Data Source [id number] 07/03/2020 10:51:00 AM [facility] Name Value Range Interpretation Code Description Data Zelda rce(s) Supporting Document(s) URINALYSIS [facility] suresh URINALYSIS SOURCE Clean Catch [facility] ital COLOR yellow NORMAL: Yellow [facility] CLARITY clear NORMAL: Clear [facility] spital Specific gravity of Urine by Test strip 1.010 1.001 - 1.030 [facility] pH 6.5 5 - 9 [facility] Glucose [Mass/volume] in Urine by Test strip NORM NORMAL: Negat jamison [facility] Bilirubin.total [Presence] in Urine by Test strip NEG NORMAL: Negative [facility] Ketones [Presence] in Urine by Test strip NEG NORMAL: Negative [facility] Protein [Mass/volume] in Urine by Test strip 100 NORMAL: Negat jamison [facility] Nitrite [Presence] in Urine by Test strip NEG NORMAL: Negative [facility] BLOOD 10 NORMAL: Negative [facility] Leukocyte esterase [Presence] in Urine by Test strip NEG KIP L: Negative [facility] Urobilinogen [Mass/volume] in Urine by Test strip NOR less radha n 1.0 mg/dL [facility] MICROSCOPIC See Below [facility] WBC 1 - 3 NORMAL: NONE SEEN [facility] Erythrocytes [#/volume] in Urine by Test strip 0 - 1 NORMAL: NON E SEEN [facility] EPITHELIAL FEW NORMAL: NONE SEEN [facility] ID Date Data Source [id number] 04/15/2020 06:41:00 PM EST [facility] Name Value Range Interpretation Code Description Data Zelda rce(s) Supporting Document(s) Thyrotropin [Units/volume] in Serum or Plasma by Detec tion limit <= 0.05 mIU/L 1.01 uIU/mL 0.47 - 5.01 [facility] ID Date Data Source [id number] 04/15/2020 03:07:00 AM [facility] Name Value Range Interpretation Code Description Data Zelda rce(s) Supporting Document(s) CVE PANEL [facility] al LIPID PANEL Cholesterol [Mass/volume] in Serum or Plasma 176 MG/DL 131 - 200 [facility] Deprecated Triglyceride [Mass/volume] in Serum or Plasma 155 MG/DL 3 5 - 160 [facility] HDL 56 MG/DL 29 - 86 [facility] Cholesterol in LDL [Mass/volume] in Serum or Plasma by Direc t assay 97 mg/dL 65 - 175 [facility] Cholesterol.total/Cholesterol in HDL [Mass Ratio] in Serum o r Plasma 3.1 3.2 - 4.4 L [facility] LDL/HDL 1.73 1.47 - 3.22 [facility] CVE RISK CHOL/HDL LDL/HDLMEN: 1/2 AVERAGE 3.43 1.00 AVERAGE 4.97 3.55 2X AVERAGE 9.55 6.25 3X AVERAGE 23.99 7.99WOMEN: 1/2 AVERAGE 3.27 1.47 AVERAGE 4.44 3.22 2X AVERAGE 7.05 5.03 3X AVERAGE 11.04 6.14 ID Date Data Source [id number] 04/15/2020 12:02:00 AM [facility] Name Value Range Interpretation Code Description Data Zelda rce(s) Supporting Document(s) Magnesium [Mass/volume] in Serum or Plasma 1.3 MG/DL 1.7 - 2.2 L [facility] ID Date Data Source [id number] 04/15/2020 12:02:00 AM [facility] Name Value Range Interpretation Code Description Data Zelda rce(s) Supporting Document(s) COMPREHENSIVE METABOLIC PANEL [facility] COMPREHENSIVE METABOLIC PANEL Sodium [Moles/volume] in Serum or Plasma 143 mEq/L 134 - 153 [facility] Potassium [Moles/volume] in Serum or Plasma 4.0 mEq/L 3.6 - 5.0 [facility] Chloride [Moles/volume] in Serum or Plasma 107 mEq/L 98 - 107 [facility] Carbon dioxide, total [Moles/volume] in Serum or Plasma 27 MEQ/L 22 - 30 [facility] Glucose [Mass/volume] in Serum or Plasma 108 MG/DL 65 - 110 [facility] BUN 28 MG/DL 7 - 21 H [facility] Creatinine [Mass/volume] in Serum or Plasma 1.0 MG/DL 0.7 - 1.5 [facility] BUN/CREAT 28 8 - 27 [facility] Protein [Mass/volume] in Serum or Plasma 6.9 G/DL 6.3 - 8.2 [facility] Albumin [Mass/volume] in Serum or Plasma 4.4 G/DL 3.9 - 5.0 [facility] Globulin [Mass/volume] in Serum by calculation 2.5 GM/DL 2.4 - 3.2 [facility] A/G RATIO 1.8 0.8 - 2.0 [facility] Calcium [Mass/volume] in Serum or Plasma 10.0 MG/DL 8.4 - 10.2 [facility] Bilirubin.total [Mass/volume] in Serum or Plasma <0.7 MG/DL 0.2 - 1.3 [facility] Alkaline phosphatase [Enzymatic activity/volume] in Serum or Plasma 82 U/L 38 - 126 [facility] Aspartate aminotransferase [Enzymatic activity/volume] in Serum or Plasma 16 U/L 5 - 40 [facility] Alanine aminotransferase [Enzymatic activity/volume] in Seru m or Plasma 11 U/L 7 - 56 [facility] Anion gap 3 in Serum or Plasma 9.0 mmol/L 8.0 - 16.0 [facility] AGE [address] [facility] al NON-AA GFR 57 mL/min [facility] AFR AMER GFR >60 [facility] Male GFR In terprentation 20-49 yrs >60 mL/min Normal 50-59 yrs >56 mL/min Normal 60-69 yrs >49 mL/min Normal 70-79yrs >42 mL/min Normal 80 and above >35 mL/min Normal Female GFR Interpretation 20-39 yrs >60 mL/min Normal 40-49 yrs >58 mL/min Normal 50-59 yrs >51 mL/min Normal 60-69 yrs >45 mL/min Normal 70-79 yrs >39 mL/min Normal 80 and above >32 mL/min Normal ID Date Data Source [id number] 04/14/2020 05:32:00 PM [facility] Name Value Range Interpretation Code Description Data Zelda rce(s) Supporting Document(s) Hemoglobin A1c/Hemoglobin.total in Blood 6.6 % 4.4 - 6.1 H [facility] {A1]{HB] ID Date Data Source [id number] 04/14/2020 04:39:00 PM [facility] Name Value Range Interpretation Code Description Data Zelda rce(s) Supporting Document(s) CBC W/AUTOMATED DIFF [facility] COMPLETE BLOOD COUNT Leukocytes [#/volume] in Blood by Automated count 8.1 10^3/uL 4.2 - 1 1.0 [facility] Erythrocytes [#/volume] in Blood by Automated count 3.81 10^6/uL 4. 20 - 5.40 L [facility] Hemoglobin [Mass/volume] in Blood 11.0 g/dL 12.0 - 16.0 L [facility] Hematocrit [Volume Fraction] of Blood by Automated count 35.0 % 3 7.0 - 47.0 L [facility] Erythrocyte mean corpuscular volume [Entitic volume] by Auto mated count 91.9 fL 81.0 - 101 [facility] Erythrocyte mean corpuscular hemoglobin [Entitic mass] by Automated count 28.9 pg 27.0 - 34.0 [facility] Erythrocyte mean corpuscular hemoglobin concentration [Mass/volume] by Automated count 31.4 g/dL 31.0 - 36.0 [facility] Erythrocyte distribution width [Ratio] by Automated count 13.6 % 11.5 - 14.5 [facility] Platelets [#/volume] in Blood by Automated count 331 10^3/uL 150 - 45 0 [facility] Platelet mean volume [Entitic volume] in Blood by Automated count 9.7 fL 7.4 - 10.4 [facility] Neutrophils/100 leukocytes in Blood by Automated count 70.9 % 37. 0 - 80.0 [facility] Lymphocytes/100 leukocytes in Blood by Manual count 20.0 % 25.0 - 40.0 L [facility] Monocytes/100 leukocytes in Blood by Automated count 6.0 % 3.0 - 8.0 [facility] Eosinophils/100 leukocytes in Blood by Automated count 1.9 % 0.0 - 7.0 [facility] Basophils/100 leukocytes in Blood by Automated count 0.6 % 0.0 - 2.5 [facility] %IG 0.6 % 0.0 - 0.0 [facility] %NRBC 0.0 % 0.0 - 0.0 [facility] al Neutrophils [#/volume] in Blood by Automated count 5.74 10^3/uL 2.00 - 6.90 [facility] Lymphocytes [#/volume] in Blood by Automated count 1.62 10^3/uL 0.60 - 3.40 [facility] Monocytes [#/volume] in Blood by Automated count 0.49 10^3/uL 0.00 - 0.90 [facility] Eosinophils [#/volume] in Blood by Automated count 0.15 10^3/uL 0.00 - 0.70 [facility] Basophils [#/volume] in Blood by Automated count 0.05 10^3/uL 0.00 - 0.20 [facility] #IG 0.05 10^3/uL 0.00 - 0.10 [facility] #NRBC 0.00 10^3/uL 0.00 - 0.00 [facility] MANUAL DIFF NOT INDICATED [facility] RBC MORPH NOT INDICATED [facility] spital ID Date Data Source [id number] 04/14/2020 07:53:00 AM EST [facility] ([facility]) Name Value Range Interpretation Code Description Data Zelda rce(s) Supporting Document(s) Magnesium [Mass/volume] in Serum or Plasma 1.3 mg/dL 1.7-2.2 [place] w low normal [facility] ([facility]) FASTING~.~.~<DG1.3.1>E78.00</DG1.3.1><DG1.3.1>E78.1</DG1.3.1><DG1.3.1>Z79.899</D G1.3.1><DG1. ID Date Data Source [id number] 04/14/2020 07:53:00 AM EST [facility] ([facility]) Name Value Range Interpretation Code Description Data Zelda rce(s) Supporting Document(s) Cve Panel Laboratory test result [facility] ([facility]) FASTING~.~.~<DG1.3.1>E78.00</DG1.3.1><DG1.3.1>E78.1</DG1.3.1><DG1.3.1>Z79.899</D G1.3.1><DG1. Cholesterol 176 mg/dL 131-200 [facility] ([facility]) FASTING~.~.~<DG1.3.1>E78.00</DG1.3.1><DG1.3.1>E78.1</DG1.3.1><DG1.3.1>Z79.899</D G1.3.1><DG1. Triglycerides 155 mg/dL 35-160 [facility] ([facility]) FASTING~.~.~<DG1.3.1>E78.00</DG1.3.1><DG1.3.1>E78.1</DG1.3.1><DG1.3.1>Z79.899</D G1.3.1><DG1. HDL 56 mg/dL 29-86 [facility] ([facility]) FASTING~.~.~<DG1.3.1>E78.00</DG1.3.1><DG1.3.1>E78.1</DG1.3.1><DG1.3.1>Z79.899</D G1.3.1><DG1. LDL 97 mg/dL 65-175 [facility] ([facility]) FASTING~.~.~<DG1.3.1>E78.00</DG1.3.1><DG1.3.1>E78.1</DG1.3.1><DG1.3.1>Z79.899</D G1.3.1><DG1. Risk Factor 3.1 3.2-4.4 Below low normal [facility] ([facility]) FASTING~.~.~<DG1.3.1>E78.00</DG1.3.1><DG1.3.1>E78.1</DG1.3.1><DG1.3.1>Z79.899</D G1.3.1><DG1. LDL/HDL 1.73 1.47-3.22 [facility] ([facility]) FASTING~.~.~<DG1.3.1>E78.00</DG1.3.1><DG1.3.1>E78.1</DG1.3.1><DG1.3.1>Z79.899</D G1.3.1><DG1. ID Date Data Source [id number] 04/14/2020 07:53:00 AM EST [facility] ([facility]) Name Value Range Interpretation Code Description Data Zelda rce(s) Supporting Document(s) Hemoglobin A1c/Hemoglobin.total in Blood 6.6 % 4.4-6.1 Above high normal [facility] ([facility]) FASTING~.~.~<DG1.3.1>E78.00</DG1.3.1><DG1.3.1>E78.1</DG1.3.1><DG1.3.1>Z79.899</D G1.3.1><DG1. Thyrotropin [Units/volume] in Serum or Plasma 1.01 uIU/mL 0.47-5.01 [facility] ([facility]) FASTING~.~.~<DG1.3.1>E78.00</DG1.3.1><DG1.3.1>E78.1</DG1.3.1><DG1.3.1>Z79.899</D G1.3.1><DG1. ID Date Data Source [id number] 04/14/2020 07:53:00 AM EST [facility] ([facility]) Name Value Range Interpretation Code Description Data Zelda rce(s) Supporting Document(s) Comprehensive Metabo Laboratory test result [facility] ([facility]) FASTING~.~.~<DG1.3.1>E78.00</DG1.3.1><DG1.3.1>E78.1</DG1.3.1><DG1.3.1>Z79.899</D G1.3.1><DG1. Potassium 4.0 meq/L 3.6-5.0 [facility] ([facility]) FASTING~.~.~<DG1.3.1>E78.00</DG1.3.1><DG1.3.1>E78.1</DG1.3.1><DG1.3.1>Z79.899</D G1.3.1><DG1. Sodium 143 meq/L 134-153 [facility] ([facility]) FASTING~.~.~<DG1.3.1>E78.00</DG1.3.1><DG1.3.1>E78.1</DG1.3.1><DG1.3.1>Z79.899</D G1.3.1><DG1. Chloride 107 meq/L 98-107 [facility] ([facility]) FASTING~.~.~<DG1.3.1>E78.00</DG1.3.1><DG1.3.1>E78.1</DG1.3.1><DG1.3.1>Z79.899</D G1.3.1><DG1. Co2 27 meq/L 22-30 [facility] ([facility]) FASTING~.~.~<DG1.3.1>E78.00</DG1.3.1><DG1.3.1>E78.1</DG1.3.1><DG1.3.1>Z79.899</D G1.3.1><DG1. Creatinine 1.0 mg/dL 0.7-1.5 [facility] ([facility]) FASTING~.~.~<DG1.3.1>E78.00</DG1.3.1><DG1.3.1>E78.1</DG1.3.1><DG1.3.1>Z79.899</D G1.3.1><DG1. BUN 28 mg/dL 7-21 Above high normal [facility] ([facility]) FASTING~.~.~<DG1.3.1>E78.00</DG1.3.1><DG1.3.1>E78.1</DG1.3.1><DG1.3.1>Z79.899</D G1.3.1><DG1. Glucose 108 mg/dL 65-110 [facility] ([facility]) FASTING~.~.~<DG1.3.1>E78.00</DG1.3.1><DG1.3.1>E78.1</DG1.3.1><DG1.3.1>Z79.899</D G1.3.1><DG1. Total Protein 6.9 g/dL 6.3-8.2 [facility] ([facility]) FASTING~.~.~<DG1.3.1>E78.00</DG1.3.1><DG1.3.1>E78.1</DG1.3.1><DG1.3.1>Z79.899</D G1.3.1><DG1. BUN/Creat 28 8-27 Above high normal [facility] ([facility]) FASTING~.~.~<DG1.3.1>E78.00</DG1.3.1><DG1.3.1>E78.1</DG1.3.1><DG1.3.1>Z79.899</D G1.3.1><DG1. Albumin 4.4 g/dL 3.9-5.0 [facility] ([facility]) FASTING~.~.~<DG1.3.1>E78.00</DG1.3.1><DG1.3.1>E78.1</DG1.3.1><DG1.3.1>Z79.899</D G1.3.1><DG1. Globulin 2.5 GM/DL 2.4-3.2 [facility] ([facility]) FASTING~.~.~<DG1.3.1>E78.00</DG1.3.1><DG1.3.1>E78.1</DG1.3.1><DG1.3.1>Z79.899</D G1.3.1><DG1. A/G Ratio 1.8 0.8-2.0 [facility] ([facility]) FASTING~.~.~<DG1.3.1>E78.00</DG1.3.1><DG1.3.1>E78.1</DG1.3.1><DG1.3.1>Z79.899</D G1.3.1><DG1. Calcium 10.0 mg/dL 8.4-10.2 [facility] ([facility]) FASTING~.~.~<DG1.3.1>E78.00</DG1.3.1><DG1.3.1>E78.1</DG1.3.1><DG1.3.1>Z79.899</D G1.3.1><DG1. Total Bili Laboratory test result 0.2-1.3 [facility] ([facility]) FASTING~.~.~<DG1.3.1>E78.00</DG1.3.1><DG1.3.1>E78.1</DG1.3.1><DG1.3.1>Z79.899</D G1.3.1><DG1. Sgot/Ast 16 U/L 5-40 [facility] ([facility]) FASTING~.~.~<DG1.3.1>E78.00</DG1.3.1><DG1.3.1>E78.1</DG1.3.1><DG1.3.1>Z79.899</D G1.3.1><DG1. Alkaline Phos 82 U/L 38-126 [facility] ([facility]) FASTING~.~.~<DG1.3.1>E78.00</DG1.3.1><DG1.3.1>E78.1</DG1.3.1><DG1.3.1>Z79.899</D G1.3.1><DG1. SGPT/Alt 11 U/L 7-56 [facility] ([facility]) FASTING~.~.~<DG1.3.1>E78.00</DG1.3.1><DG1.3.1>E78.1</DG1.3.1><DG1.3.1>Z79.899</D G1.3.1><DG1. Anion Gap 9.0 mmol/L 8.0-16.0 [facility] ([facility]) FASTING~.~.~<DG1.3.1>E78.00</DG1.3.1><DG1.3.1>E78.1</DG1.3.1><DG1.3.1>Z79.899</D G1.3.1><DG1. Age 75 yrs [facility] ([facility]) FASTING~.~.~<DG1.3.1>E78.00</DG1.3.1><DG1.3.1>E78.1</DG1.3.1><DG1.3.1>Z79.899</D G1.3.1><DG1. Non-Aa GFR 57 mL/min [facility] ([facility]) FASTING~.~.~<DG1.3.1>E78.00</DG1.3.1><DG1.3.1>E78.1</DG1.3.1><DG1.3.1>Z79.899</D G1.3.1><DG1. Afr Amer GFR Laboratory test result [facility] ([facility]) FASTING~.~.~<DG1.3.1>E78.00</DG1.3.1><DG1.3.1>E78.1</DG1.3.1><DG1.3.1>Z79.899</D G1.3.1><DG1. ID Date Data Source [id number] 04/14/2020 07:53:00 AM EST [facility] ([facility]) Name Value Range Interpretation Code Description Data Zelda rce(s) Supporting Document(s) CBC W/Automated Diff Laboratory test result [facility] ([facility]) FASTING~.~.~<DG1.3.1>E78.00</DG1.3.1><DG1.3.1>E78.1</DG1.3.1><DG1.3.1>Z79.899</D G1.3.1><DG1. WBC 8.1 10^3/uL 4.2-11.0 [facility] ([facility]) FASTING~.~.~<DG1.3.1>E78.00</DG1.3.1><DG1.3.1>E78.1</DG1.3.1><DG1.3.1>Z79.899</D G1.3.1><DG1. Hemoglobin 11.0 g/dL 12.0-16.0 Below low normal [facility] ( [facility]) FASTING~.~.~<DG1.3.1>E78.00</DG1.3.1><DG1.3.1>E78.1</DG1.3.1><DG1.3.1>Z79.899</D G1.3.1><DG1. RBC 3.81 10^6/uL 4.20-5.40 Below low normal [facility] ([facility]) FASTING~.~.~<DG1.3.1>E78.00</DG1.3.1><DG1.3.1>E78.1</DG1.3.1><DG1.3.1>Z79.899</D G1.3.1><DG1. Hematocrit 35.0 % 37.0-47.0 Below low normal [facility] ( [facility]) FASTING~.~.~<DG1.3.1>E78.00</DG1.3.1><DG1.3.1>E78.1</DG1.3.1><DG1.3.1>Z79.899</D G1.3.1><DG1. MCH 28.9 pg 27.0-34.0 [facility] ([facility]) FASTING~.~.~<DG1.3.1>E78.00</DG1.3.1><DG1.3.1>E78.1</DG1.3.1><DG1.3.1>Z79.899</D G1.3.1><DG1. MCV 91.9 fL 81.0-101 [facility] ([facility]) FASTING~.~.~<DG1.3.1>E78.00</DG1.3.1><DG1.3.1>E78.1</DG1.3.1><DG1.3.1>Z79.899</D G1.3.1><DG1. MCHC 31.4 g/dL 31.0-36.0 [facility] ([facility]) FASTING~.~.~<DG1.3.1>E78.00</DG1.3.1><DG1.3.1>E78.1</DG1.3.1><DG1.3.1>Z79.899</D G1.3.1><DG1. RDW 13.6 % 11.5-14.5 [facility] ([facility]) FASTING~.~.~<DG1.3.1>E78.00</DG1.3.1><DG1.3.1>E78.1</DG1.3.1><DG1.3.1>Z79.899</D G1.3.1><DG1. Platelets 331 10^3/uL 150-450 [facility] ([facility]) FASTING~.~.~<DG1.3.1>E78.00</DG1.3.1><DG1.3.1>E78.1</DG1.3.1><DG1.3.1>Z79.899</D G1.3.1><DG1. Neut 70.9 % 37.0-80.0 [facility] ([facility]) FASTING~.~.~<DG1.3.1>E78.00</DG1.3.1><DG1.3.1>E78.1</DG1.3.1><DG1.3.1>Z79.899</D G1.3.1><DG1. MPV 9.7 fL 7.4-10.4 [facility] ([facility]) FASTING~.~.~<DG1.3.1>E78.00</DG1.3.1><DG1.3.1>E78.1</DG1.3.1><DG1.3.1>Z79.899</D G1.3.1><DG1. [place] 6.0 % 3.0-8.0 [facility] ([facility]) FASTING~.~.~<DG1.3.1>E78.00</DG1.3.1><DG1.3.1>E78.1</DG1.3.1><DG1.3.1>Z79.899</D G1.3.1><DG1. Lymph 20.0 % 25.0-40.0 Below low normal [facility] ( [facility]) FASTING~.~.~<DG1.3.1>E78.00</DG1.3.1><DG1.3.1>E78.1</DG1.3.1><DG1.3.1>Z79.899</D G1.3.1><DG1. Baso 0.6 % 0.0-2.5 [facility] ([facility]) FASTING~.~.~<DG1.3.1>E78.00</DG1.3.1><DG1.3.1>E78.1</DG1.3.1><DG1.3.1>Z79.899</D G1.3.1><DG1. %Ig 0.6 % 0.0-0.0 Above high normal [facility] ([facility]) FASTING~.~.~<DG1.3.1>E78.00</DG1.3.1><DG1.3.1>E78.1</DG1.3.1><DG1.3.1>Z79.899</D G1.3.1><DG1. Eos 1.9 % 0.0-7.0 [facility] ([facility]) FASTING~.~.~<DG1.3.1>E78.00</DG1.3.1><DG1.3.1>E78.1</DG1.3.1><DG1.3.1>Z79.899</D G1.3.1><DG1. %NRBC 0.0 % 0.0-0.0 [facility] ([facility]) FASTING~.~.~<DG1.3.1>E78.00</DG1.3.1><DG1.3.1>E78.1</DG1.3.1><DG1.3.1>Z79.899</D G1.3.1><DG1. #Neut 5.74 10^3/uL 2.00-6.90 [facility] ([facility]) FASTING~.~.~<DG1.3.1>E78.00</DG1.3.1><DG1.3.1>E78.1</DG1.3.1><DG1.3.1>Z79.899</D G1.3.1><DG1. #Lymph 1.62 10^3/uL 0.60-3.40 [facility] ([facility]) FASTING~.~.~<DG1.3.1>E78.00</DG1.3.1><DG1.3.1>E78.1</DG1.3.1><DG1.3.1>Z79.899</D G1.3.1><DG1. #[place] 0.49 10^3/uL 0.00-0.90 [facility] ([facility]) FASTING~.~.~<DG1.3.1>E78.00</DG1.3.1><DG1.3.1>E78.1</DG1.3.1><DG1.3.1>Z79.899</D G1.3.1><DG1. #Baso 0.05 10^3/uL 0.00-0.20 [facility] ([facility]) FASTING~.~.~<DG1.3.1>E78.00</DG1.3.1><DG1.3.1>E78.1</DG1.3.1><DG1.3.1>Z79.899</D G1.3.1><DG1. #Eos 0.15 10^3/uL 0.00-0.70 [facility] ([facility]) FASTING~.~.~<DG1.3.1>E78.00</DG1.3.1><DG1.3.1>E78.1</DG1.3.1><DG1.3.1>Z79.899</D G1.3.1><DG1. #Ig 0.05 10^3/uL 0.00-0.10 [facility] ([facility]) FASTING~.~.~<DG1.3.1>E78.00</DG1.3.1><DG1.3.1>E78.1</DG1.3.1><DG1.3.1>Z79.899</D G1.3.1><DG1. Manual Diff Laboratory test result [facility] ([facility]) FASTING~.~.~<DG1.3.1>E78.00</DG1.3.1><DG1.3.1>E78.1</DG1.3.1><DG1.3.1>Z79.899</D G1.3.1><DG1. #NRBC 0.00 10^3/uL 0.00-0.00 [facility] ([facility]) FASTING~.~.~<DG1.3.1>E78.00</DG1.3.1><DG1.3.1>E78.1</DG1.3.1><DG1.3.1>Z79.899</D G1.3.1><DG1. RBC Morph Laboratory test result [facility] ([facility]) FASTING~.~.~<DG1.3.1>E78.00</DG1.3.1><DG1.3.1>E78.1</DG1.3.1><DG1.3.1>Z79.899</D G1.3.1><DG1. ID Date Data Source [id number] 10/26/2019 08:35:00 AM EDT [facility] ([facility]) Name Value Range Interpretation Code Description Data Zelda rce(s) Supporting Document(s) Magnesium [Mass/volume] in Serum or Plasma 1.6 mg/dL 1.7-2.2 [place] w low normal [facility] ([facility]) Is patient fasting? N ID Date Data Source [id number] 10/26/2019 08:35:00 AM EDT [facility] ([facility]) Name Value Range Interpretation Code Description Data Zelda rce(s) Supporting Document(s) HDL 65 mg/dL 29-86 [facility] ([facility]) Is patient fasting? N Triglycerides 132 mg/dL 35-160 [facility] ([facility]) Is patient fasting? N Cholesterol 202 mg/dL 131-200 Above high normal [facility] ([facility]) Is patient fasting? N Cve Panel Laboratory test result [facility] ([facility]) Is patient fasting? N LDL/HDL 1.83 1.47-3.22 [facility] Is patient fasting? N Risk Factor 3.1 3.2-4.4 Below low normal [facility] ([facility]) Is patient fasting? N LDL 119 mg/dL 65-175 [facility] ([facility]) Is patient fasting? N ID Date Data Source [id number] 10/26/2019 08:35:00 AM EDT [facility] ([facility]) Name Value Range Interpretation Code Description Data Zelda rce(s) Supporting Document(s) Thyrotropin [Units/volume] in Serum or Plasma 2.18 uIU/mL 0.47-5.01 [facility] ([facility]) Is patient fasting? N Hemoglobin A1c/Hemoglobin.total in Blood 6.7 % 4.4-6.1 Above high normal [facility] ([facility]) Is patient fasting? N ID Date Data Source [id number] 10/26/2019 08:35:00 AM EDT [facility] ([facility]) Name Value Range Interpretation Code Description Data Zelda rce(s) Supporting Document(s) Comprehensive [employer] Laboratory test result [facility] ([facility]) Is patient fasting? N Potassium 4.2 meq/L 3.6-5.0 [facility] ([facility]) Is patient fasting? N Chloride 104 meq/L 98-107 [facility] ([facility]) Is patient fasting? N Sodium 145 meq/L 134-153 [facility] ([facility]) Is patient fasting? N Co2 25 meq/L 22-30 [facility] ([facility]) Is patient fasting? N BUN 20 mg/dL 7-21 [facility] ([facility]) Is patient fasting? N Creatinine 1.2 mg/dL 0.7-1.5 [facility] ([facility]) Is patient fasting? N Glucose 103 mg/dL 65-110 [facility] ([facility]) Is patient fasting? N BUN/Creat 17 8-27 [facility] ([facility]) Is patient fasting? N Albumin 4.8 g/dL 3.9-5.0 [facility] Is patient fasting? N Total Protein 7.3 g/dL 6.3-8.2 [facility] ([facility]) Is patient fasting? N Calcium 10.0 mg/dL 8.4-10.2 [facility] ([facility]) Is patient fasting? N Globulin 2.5 GM/DL 2.4-3.2 [facility] ([facility]) Is patient fasting? N A/G [facility] 1.9 0.8-2.0 [facility] Is patient fasting? N Total Bili Laboratory test result 0.2-1.3 [facility] ([facility]) Is patient fasting? N Sgot/Ast 16 U/L 5-40 [facility] ([facility]) Is patient fasting? N Alkaline Phos 74 U/L 38-126 [facility] ([facility]) Is patient fasting? N SGPT/Alt 10 U/L 7-56 [facility] ([facility]) Is patient fasting? N Age 74 yrs [facility] ([facility]) Is patient fasting? N Anion Gap 16.0 mmol/L 8.0-16.0 [facility] ([facility]) Is patient fasting? N Non-Aa GFR 47 mL/min [facility] ([facility]) Is patient fasting? N Afr Amer GFR Laboratory test result [facility] ([facility]) Is patient fasting? N ID Date Data Source [id number] 10/26/2019 08:35:00 AM EDT [facility] ([facility]) Name Value Range Interpretation Code Description Data Zelda rce(s) Supporting Document(s) CBC W/Automated Diff Laboratory test result [facility] ([facility]) Is patient fasting? N Hemoglobin 11.6 g/dL 12.0-16.0 Below low normal [facility] ( [facility]) Is patient fasting? N WBC 6.5 10^3/uL 4.2-11.0 [facility] Is patient fasting? N RBC 3.96 10^6/uL 4.20-5.40 Below low normal [facility] ([facility]) Is patient fasting? N MCH 29.3 pg 27.0-34.0 [facility] ([facility]) Is patient fasting? N Hematocrit 36.7 % 37.0-47.0 Below low normal [facility] ( [facility]) Is patient fasting? N MCV 92.7 fL 81.0-101 [facility] ([facility]) Is patient fasting? N RDW 13.4 % 11.5-14.5 [facility] ([facility]) Is patient fasting? N MPV 10.0 fL 7.4-10.4 [facility] ([facility]) Is patient fasting? N Platelets 287 10^3/uL 150-450 [facility] ([facility]) Is patient fasting? N MCHC 31.6 g/dL 31.0-36.0 [facility] ([facility]) Is patient fasting? N Lymph 25.1 % 25.0-40.0 [facility] ([facility]) Is patient fasting? N [place] 6.3 % 3.0-8.0 [facility] ([facility]) Is patient fasting? N Neut 65.0 % 37.0-80.0 [facility] ([facility]) Is patient fasting? N %Ig 0.5 % 0.0-0.0 Above high normal [facility] ([facility]) Is patient fasting? N Baso 0.9 % 0.0-2.5 [facility] ([facility]) Is patient fasting? N Eos 2.2 % 0.0-7.0 [facility] ([facility]) Is patient fasting? N %NRBC 0.0 % 0.0-0.0 [facility] ([facility]) Is patient fasting? N #[place] 0.41 10^3/uL 0.00-0.90 [facility] ([facility]) Is patient fasting? N #Lymph 1.62 10^3/uL 0.60-3.40 [facility] ([facility]) Is patient fasting? N #Neut 4.20 10^3/uL 2.00-6.90 [facility] ([facility]) Is patient fasting? N #Ig 0.03 10^3/uL 0.00-0.10 [facility] ([facility]) Is patient fasting? N #Baso 0.06 10^3/uL 0.00-0.20 [facility] ([facility]) Is patient fasting? N #Eos 0.14 10^3/uL 0.00-0.70 [facility] ([facility]) Is patient fasting? N #NRBC 0.00 10^3/uL 0.00-0.00 [facility] ([facility]) Is patient fasting? N RBC Morph Laboratory test result [facility] ([facility]) Is patient fasting? N Manual Diff Laboratory test result M EDENT ([facility]) Is patient fasting? N ID Date Data Source [id number] 10/26/2019 06:39:00 PM EDT [facility] Name Value Range Interpretation Code Description Data Zelda rce(s) Supporting Document(s) Thyrotropin [Units/volume] in Serum or Plasma by Detec tion limit <= 0.05 mIU/L 2.18 uIU/mL 0.47 - 5.01 [facility] ID Date Data Source [id number] 10/26/2019 06:32:00 PM EDT [facility] Name Value Range Interpretation Code Description Data Zelda rce(s) Supporting Document(s) Hemoglobin A1c/Hemoglobin.total in Blood 6.7 % 4.4 - 6.1 H [facility] {A1]{HB] ID Date Data Source [id number] 10/26/2019 06:25:00 PM EDT [facility] Name Value Range Interpretation Code Description Data Zelda rce(s) Supporting Document(s) Magnesium [Mass/volume] in Serum or Plasma 1.6 MG/DL 1.7 - 2.2 L [facility] ID Date Data Source [id number] 10/26/2019 06:25:00 PM EDT [facility] Name Value Range Interpretation Code Description Data Zelda rce(s) Supporting Document(s) [facility] Cholesterol [Mass/volume] in Serum or Plasma 202 MG/DL 131 - 200 H [facility] Deprecated Triglyceride [Mass/volume] in Serum or Plasma 132 MG/DL 3 5 - 160 [facility] HDL 65 MG/DL 29 - 86 [facility] Cholesterol in LDL [Mass/volume] in Serum or Plasma by Direc t assay 119 mg/dL 65 - 175 [facility] Cholesterol.total/Cholesterol in HDL [Mass Ratio] in Serum o r Plasma 3.1 3.2 - 4.4 L [facility] LDL/HDL 1.83 1.47 - 3.22 [facility] CVE RISK CHOL/HDL LDL/HDLMEN: 1/2 AVERAGE 3.43 1.00 AVERAGE 4.97 3.55 2X AVERAGE 9.55 6.25 3X AVERAGE 23.99 7.99WOMEN: 1/2 AVERAGE 3.27 1.47 AVERAGE 4.44 3.22 2X AVERAGE 7.05 5.03 3X AVERAGE 11.04 6.14 ID Date Data Source [id number] 10/26/2019 06:25:00 PM EDT [facility] Name Value Range Interpretation Code Description Data Zelda rce(s) Supporting Document(s) COMPREHENSIVE METABOLIC PANEL [facility] COMPREHENSIVE METABOLIC PANEL Sodium [Moles/volume] in Serum or Plasma 145 mEq/L 134 - 153 [facility] Potassium [Moles/volume] in Serum or Plasma 4.2 mEq/L 3.6 - 5.0 [facility] Chloride [Moles/volume] in Serum or Plasma 104 mEq/L 98 - 107 [facility] Carbon dioxide, total [Moles/volume] in Serum or Plasma 25 MEQ/L 22 - 30 [facility] Glucose [Mass/volume] in Serum or Plasma 103 MG/DL 65 - 110 [facility] BUN 20 MG/DL 7 - 21 [facility] Creatinine [Mass/volume] in Serum or Plasma 1.2 MG/DL 0.7 - 1.5 [facility] BUN/CREAT 17 8 - 27 [facility] al Protein [Mass/volume] in Serum or Plasma 7.3 G/DL 6.3 - 8.2 [facility] Albumin [Mass/volume] in Serum or Plasma 4.8 G/DL 3.9 - 5.0 [facility] Globulin [Mass/volume] in Serum by calculation 2.5 GM/DL 2.4 - 3.2 [facility] A/G RATIO 1.9 0.8 - 2.0 [facility] Calcium [Mass/volume] in Serum or Plasma 10.0 MG/DL 8.4 - 10.2 [facility] Bilirubin.total [Mass/volume] in Serum or Plasma <0.7 MG/DL 0.2 - 1.3 [facility] Alkaline phosphatase [Enzymatic activity/volume] in Serum or Plasma 74 U/L 38 - 126 [facility] Aspartate aminotransferase [Enzymatic activity/volume] in Serum or Plasma 16 U/L 5 - 40 [facility] Alanine aminotransferase [Enzymatic activity/volume] in Seru m or Plasma 10 U/L 7 - 56 [facility] Anion gap 3 in Serum or Plasma 16.0 mmol/L 8.0 - 16.0 [facility] AGE 74 yrs [facility] NON-AA GFR 47 mL/min [facility] Hospi suresh AFR AMER GFR >60 [facility] pital Male GFR In terprentation 20-49 yrs >60 mL/min Normal 50-59 yrs >56 mL/min Normal 60-69 yrs >49 mL/min Normal 70-79yrs >42 mL/min Normal 80 and above >35 mL/min Normal Female GFR Interpretation 20-39 yrs >60 mL/min Normal 40-49 yrs >58 mL/min Normal 50-59 yrs >51 mL/min Normal 60-69 yrs >45 mL/min Normal 70-79 yrs >39 mL/min Normal 80 and above >32 mL/min Normal ID Date Data Source [id number] 10/26/2019 06:12:00 PM EDT [facility] Name Value Range Interpretation Code Description Data Zelda rce(s) Supporting Document(s) CBC W/AUTOMATED DIFF [facility] COMPLETE BLOOD COUNT Leukocytes [#/volume] in Blood by Automated count 6.5 10^3/uL 4.2 - 1 1.0 [facility] Erythrocytes [#/volume] in Blood by Automated count 3.96 10^6/uL 4. 20 - 5.40 L [facility] Hemoglobin [Mass/volume] in Blood 11.6 g/dL 12.0 - 16.0 L [facility] Hematocrit [Volume Fraction] of Blood by Automated count 36.7 % 3 7.0 - 47.0 L [facility] Erythrocyte mean corpuscular volume [Entitic volume] by Auto mated count 92.7 fL 81.0 - 101 [facility] Erythrocyte mean corpuscular hemoglobin [Entitic mass] by Automated count 29.3 pg 27.0 - 34.0 [facility] Erythrocyte mean corpuscular hemoglobin concentration [Mass/volume] by Automated count 31.6 g/dL 31.0 - 36.0 [facility] Erythrocyte distribution width [Ratio] by Automated count 13.4 % 11.5 - 14.5 [facility] Platelets [#/volume] in Blood by Automated count 287 10^3/uL 150 - 45 0 [facility] Platelet mean volume [Entitic volume] in Blood by Automated count 10.0 fL 7.4 - 10.4 [facility] Neutrophils/100 leukocytes in Blood by Automated count 65.0 % 37. 0 - 80.0 [facility] Lymphocytes/100 leukocytes in Blood by Manual count 25.1 % 25.0 - 40.0 [facility] Monocytes/100 leukocytes in Blood by Automated count 6.3 % 3.0 - 8.0 [facility] Eosinophils/100 leukocytes in Blood by Automated count 2.2 % 0.0 - 7.0 [facility] Basophils/100 leukocytes in Blood by Automated count 0.9 % 0.0 - 2.5 [facility] %IG 0.5 % 0.0 - 0.0 [facility] %NRBC 0.0 % 0.0 - 0.0 [facility] Neutrophils [#/volume] in Blood by Automated count 4.20 10^3/uL 2.00 - 6.90 [facility] Lymphocytes [#/volume] in Blood by Automated count 1.62 10^3/uL 0.60 - 3.40 [facility] Monocytes [#/volume] in Blood by Automated count 0.41 10^3/uL 0.00 - 0.90 [facility] Eosinophils [#/volume] in Blood by Automated count 0.14 10^3/uL 0.00 - 0.70 [facility] Basophils [#/volume] in Blood by Automated count 0.06 10^3/uL 0.00 - 0.20 [facility] #IG 0.03 10^3/uL 0.00 - 0.10 [facility] #NRBC 0.00 10^3/uL 0.00 - 0.00 [facility]spital MANUAL DIFF NOT INDICATED [facility] RBC MORPH NOT INDICATED [facility] spital ID Date Data Source [id number] 05/06/2019 04:43:00 PM EST [facility] Name Value Range Interpretation Code Description Data Zelda rce(s) Supporting Document(s) Sodium 143 mmol/L 136-145 Normal (applies to non-numeric resul ts) [facility] Potassium 3.5-5.1 Below low normal [facility] spital Chloride 104 mmol/L 98-107 Normal (applies to non-numeric resul ts) [facility] Carbon Dioxide CO2 21-32 Normal (applies to non-numer ic results) [facility] Anion Gap 5.0-16.0 Normal (applies to non-numeric resul ts) [facility] BUN 20 mg/dL 7-18 Above high normal [facility] ospital Creatinine,Serum 0.7-1.2 Normal (applies to non-numeric results) [facility] GFR 47 mL/min >60 Below low normal [facility] Glucose Level 112 mg/dL 60-99 Above high normal [facility] Reference range is only applicable when patient is fasting Note the following drug interference: Sulfasalazine Sulfapyridine Can see falsely depressed Can see falsely elevated result with up to 17% results with up to 11% decrease in measurement increase in measurement Recommend patients be collected for this test prior to administration of either drug. Calcium 8.5-10.1 Normal (applies to non-numeric resul ts) [facility] Bilirubin,Total 0.1-1.9 Normal (applies to non-numeric results) [facility] SGOT(AST) 13 U/L 15-37 Below low normal [facility] spital Note the following drug interference: Sulfasalazine Sulfapyridine Can see falsely depressed Can see falsely elevated result with up to 10% results with up to 10% decrease in measurement increase in measurement Recommend patients be collected for this test prior to administration of either drug. SGPT(ALT) 15 U/L 12-78 Normal (applies to non-numeric resul ts) [facility] Note the following drug interference: Sulfasalazine Sulfapyridine Can see falsely depressed Can see falsely elevated result with up to 29% results with up to 10% decrease in measurement increase in measurement Recommend patients be collected for this test prior to administration of either drug. Alkaline Phosphatase 70 U/L 38-126 Normal (applies to non-num rd results) [facility] can increase Alkaline Phosp le vels up to 2 times the normal adult value. Normal values for children and adolescents are 2 to 3 times the normal adult value. Total Protein 6.0-8.2 Normal (applies to non-numeric re sults) [facility] Albumin Level 3.4-5.0 Normal (applies to non-numeric re sults) [facility] ID Date Data Source [id number] 05/06/2019 04:43:00 PM EST [facility] Name Value Range Interpretation Code Description Data Zelda rce(s) Supporting Document(s) Triglycerides 95 mg/dL <150 Normal (applies to non-numeric re sults) [facility] Cholesterol 174 mg/dL 100-200 Normal (applies to non-numeric resu lts) [facility] LDL Cholesterol Calculated 89 0-130 Normal (applies to n on-numeric results) [facility] HDL Cholesterol 66 mg/dL 40-60 Above high normal [facility] Cholesterol/HDL Ratio 3.6-6.7 Below low normal [facility] Procedure Vital Signs ID Date Data Source UNK Name Value Range Interpretation Code Description Data Source(s) Body height 58 [in_i] 58 [in_i] [facility] ([facility]) 4'10" Oxygen saturation in Arterial blood by Pulse oximetry 97 % 97 % [facility] ([facility]) Respiratory rate 18 /min 18 /min [facility] ( [facility]) Heart rate 124 /min 124 /min [facility] ([facility]) Diastolic blood pressure--sitting 100 mm[Hg] 10 0 mm[Hg] [facility] ([facility]) Systolic blood pressure--sitting 194 mm[Hg] 194 mm[Hg] [facility] ([facility]) Diastolic blood pressure 100 mm[Hg] 100 mm[Hg] [facility] ([facility]) Systolic blood pressure 200 mm[Hg] 200 mm[Hg] [facility] ([facility]) Body surface area Derived from formula 1.29 m2 1.29 m2 [facility] ([facility]) Body mass index (BMI) [Ratio] 18.6 kg/m2 18.6 k g/m2 [facility] ([facility]) Body height 58 [in_i] 58 [in_i] [facility] ([facility]) 4'10" Body weight 40.427 kg 40.427 kg [facility] ([facility]) Body weight 89.12 [lb_av] 89.12 [lb_av] [facility] ([facility]) Oxygen saturation in Arterial blood by Pulse oximetry 97 % 97 % [facility] ([facility]) Respiratory rate 18 /min 18 /min [facility] ( [facility]) Body temperature 97.4 [degF] 97.4 [degF] [facility] ([facility]) Heart rate 102 /min 102 /min [facility] ([facility]) Diastolic blood pressure 80 mm[Hg] 80 mm[Hg] [facility] ([facility]) Systolic blood pressure 120 mm[Hg] 120 mm[Hg] [facility] ([facility]) Body surface area Derived from formula 1.33 m2 1.33 m2 [facility] Body mass index (BMI) [Ratio] 20.1 kg/m2 20.1 k g/m2 [facility] ([facility]) Body height 58 [in_i] 58 [in_i] [facility] ([facility]) 4'10" Body weight 43.659 kg 43.659 kg [facility] ([facility]) Body weight 96.25 [lb_av] 96.25 [lb_av] [facility] ([facility]) Oxygen saturation in Arterial blood by Pulse oximetry 96 % 96 % [facility] ([facility]) Respiratory rate 18 /min 18 /min [facility] ( [facility]) Body temperature 98.2 [degF] 98.2 [degF] [facility] ([facility]) Heart rate 94 /min 94 /min [facility] ([facility]) Diastolic blood pressure 68 mm[Hg] 68 mm[Hg] [facility] ([facility]) Systolic blood pressure 140 mm[Hg] 140 mm[Hg] M [facility] ([facility]) Body surface area 1.33 m2 1.33 m2 [facility] ([facility])
[2020-07-05] MEDS ORDERED: LOSA100T50 PO (06:45)
[2020-07-05] MEDS ORDERED: CLONI1TA PO ×2 (06:45→12:13)
[2020-07-05] MEDS ORDERED: ATOR1TAB21 PO (06:45)
[2020-07-05 07:39] LABS: BASO % 0.4 % (0.0-1.0); HEMATOCRIT 36.3 % (36.0-47.0); HEMOGLOBIN 11.5 g/dl (12.0-15.5); LYMPH # 0.9 10^3/uL (1.5-5.0); LYMPH % 12.1 % (24.0-44.0); MEAN CORPUSCULAR HEMOGLOBIN 29.2 pg (27.0-33.0); MEAN CORPUSCULAR HGB CONC 31.7 g/dl (32.0-36.5); MEAN CORPUSCULAR VOLUME 92.1 fl (80.0-96.0); MONO # 0.3 10^3/uL (0.0-0.8); MONO % 3.9 % (0.0-5.0); NEUTROPHILS # 6.1 10^3/uL (1.5-8.5); NEUTROPHILS % 83.2 % (36.0-66.0); PLATELET COUNT, AUTOMATED 261 10^3/uL (150-450); RED BLOOD COUNT 3.94 10^6/uL (4.00-5.40); WHITE BLOOD COUNT 7.4 10^3/uL (4.0-10.0)
--- OUTSIDE RECORDS SUMMARY | 2020-07-05 07:41 | CCD ---
Author Author [facility] Organization [facility] Address Unknown Phone Unavailable Care Team Providers Care Mine Supervisor Name Role Phone JENNIFER SEGOVIA BO STRUCTURAL ANALYST Unavailable Unavailable JULIETTE, JENNIFER BO STRUCTURAL ANALYST Unavailable Unavailable SEGOVIA, JENNIFER BO STRUCTURAL ANALYST Unavailable Unavailable SEGOVIA, JENNIFER BO STRUCTURAL ANALYST Unavailable Unavailable SEGOVIA, JENNIFER BO STRUCTURAL ANALYST Unavailable Unavailable JULIETTE, JENNIFER BO STRUCTURAL ANALYST Unavailable Unavailable SEGOVIA, JENNIFER BO STRUCTURAL ANALYST Unavailable Unavailable SEGOVIA, JENNIFER BO STRUCTURAL ANALYST Unavailable Unavailable SEGOVIA, JENNIFER BO STRUCTURAL ANALYST Unavailable Unavailable SEGOVIA, JENNIFER BO STRUCTURAL ANALYST Unavailable Unavailable SEGOVIA, JENNIFER BO STRUCTURAL ANALYST Unavailable Unavailable SEGOVIA, JENNIFER BO STRUCTURAL ANALYST Unavailable Unavailable JULIETTE, JENNIFER BO STRUCTURAL ANALYST Unavailable Unavailable SEGOVIA, JENNIFER BO STRUCTURAL ANALYST Unavailable Unavailable SEGOVIA, JENNIFER BO STRUCTURAL ANALYST Unavailable Unavailable SEGOVIA, JENNIFER BO STRUCTURAL ANALYST Unavailable Unavailable SEGOVIA, JENNIFER BO STRUCTURAL ANALYST Unavailable Unavailable SEGOVIA, JENNIFER BO STRUCTURAL ANALYST Unavailable Unavailable SEGOVIA, JENNIFER BO STRUCTURAL ANALYST Unavailable Unavailable SEGOVIA, JENNIFER BO STRUCTURAL ANALYST Unavailable Unavailable SEGOVIA, JENNIFER BO STRUCTURAL ANALYST Unavailable Unavailable SEGOVIA, JENNIFER BO STRUCTURAL ANALYST Unavailable Unavailable JULIETTE, JENNIFER BO STRUCTURAL ANALYST Unavailable Unavailable SEGOVIA, JENNIFER BO STRUCTURAL ANALYST Unavailable Unavailable SEGOVIA, JENNIFER BO STRUCTURAL ANALYST Unavailable Unavailable SEGOVIA, JENNIFER BO STRUCTURAL ANALYST Unavailable Unavailable SEGOVIA, JENNIFER BO STRUCTURAL ANALYST Unavailable Unavailable JULIETTE, JENNIFER BO STRUCTURAL ANALYST Unavailable Unavailable SEGOVIA, JENNIFER BO STRUCTURAL ANALYST Unavailable Unavailable SEGOVIA, JENNIFER BO STRUCTURAL ANALYST Unavailable Unavailable SEGOVIA, JENNIFER BO STRUCTURAL ANALYST Unavailable Unavailable SEGOVIA, JENNIFER BO STRUCTURAL ANALYST Unavailable Unavailable SEGOVIA, JENNIFER BO STRUCTURAL ANALYST Unavailable Unavailable SEGOVIA, JENNIFER BO STRUCTURAL ANALYST Unavailable Unavailable SEGOVIA, JENNIFER BO STRUCTURAL ANALYST Unavailable Unavailable SEGOVIA, JENNIFER BO STRUCTURAL ANALYST Unavailable Unavailable SEGOVIA, JENNIFER BO STRUCTURAL ANALYST Unavailable Unavailable SEGOVIA, JENNIFER BO STRUCTURAL ANALYST Unavailable Unavailable SEGOVIA, JENNIFER BO STRUCTURAL ANALYST Unavailable Unavailable SEGOVIA, JENNIFER BO STRUCTURAL ANALYST Unavailable Unavailable SEGOVIA, JENNIFER BO STRUCTURAL ANALYST Unavailable Unavailable SEGOVIA, JENNIFER BO STRUCTURAL ANALYST Unavailable Unavailable SEGOVIA, JENNIFER BO STRUCTURAL ANALYST Unavailable Unavailable SEGOVIA, JENNIFER BO STRUCTURAL ANALYST Unavailable Unavailable SEGOVIA, JENNIFER BO STRUCTURAL ANALYST Unavailable Unavailable SEGOVIA, JENNIFER BO STRUCTURAL ANALYST Unavailable Unavailable SEGOVIA, JENNIFER BO STRUCTURAL ANALYST Unavailable Unavailable SEGOVIA, JENNIFER BO STRUCTURAL ANALYST Unavailable Unavailable SEGOVIA, JENNIFER BO STRUCTURAL ANALYST Unavailable Unavailable SEGOVIA, JENNIFER BO STRUCTURAL ANALYST Unavailable Unavailable TURRIN, DAWSON Unavailable Unavailable TURRIN, DAWSON Unavailable Unavailable TURRIN, DAWSON Unavailable Unavailable TURRIN, DAWSON Unavailable Unavailable Nevills, C Vane STRUCTURAL ANALYST Unavailable Unavailable Nevills, C Vane STRUCTURAL ANALYST Unavailable Unavailable Nevills, C Vane STRUCTURAL ANALYST Unavailable Unavailable Nevills, C Vane STRUCTURAL ANALYST Unavailable Unavailable Nevills, C Vane STRUCTURAL ANALYST Unavailable Unavailable Nevills, C Vane STRUCTURAL ANALYST Unavailable Unavailable Nevills, C Vane STRUCTURAL ANALYST Unavailable Unavailable Nevills, C Vane STRUCTURAL ANALYST Unavailable Unavailable Nevills, C Vane STRUCTURAL ANALYST Unavailable Unavailable Nevills, C Vane STRUCTURAL ANALYST Unavailable Unavailable Nevills, C Vane STRUCTURAL ANALYST Unavailable Unavailable Nevills, C Vane STRUCTURAL ANALYST Unavailable Unavailable Nevills, C Vane STRUCTURAL ANALYST Unavailable Unavailable Nevills, C Vane STRUCTURAL ANALYST Unavailable Unavailable Nevills, C Vane STRUCTURAL ANALYST Unavailable Unavailable Nevills, C Vane STRUCTURAL ANALYST Unavailable Unavailable Nevills, C Vane STRUCTURAL ANALYST Unavailable Unavailable Robby, Capri Karla ANP-BC Unavailable Unavailable Robby, Capri Karla ANP-BC Unavailable Unavailable Robby, Capri Karla ANP-BC Unavailable Unavailable Robby, Capri Karla ANP-BC Unavailable Unavailable Robby, Capri Karla ANP-BC Unavailable Unavailable Robby, Capri Karla ANP-BC Unavailable Unavailable Robby, Capri Karla ANP-BC Unavailable Unavailable Robby, Capri Karla ANP-BC Unavailable Unavailable Robby, Capri Karla ANP-BC Unavailable Unavailable Robby, Capri Karla ANP-BC Unavailable Unavailable Robby, Capri Karla ANP-BC Unavailable Unavailable Robby, Capri Karla ANP-BC Unavailable Unavailable Robby, Capri Karla ANP-BC Unavailable Unavailable Robby, Capri Karla ANP-BC Unavailable Unavailable Robby, Capri Karla ANP-BC Unavailable Unavailable Robby, Capri Karla ANP-BC Unavailable Unavailable Robby, Capri Karla ANP-BC Unavailable Unavailable Robby, Capri Karla ANP-BC Unavailable Unavailable Robby, Capri Karla ANP-BC Unavailable Unavailable Robby, Capri Karla ANP-BC Unavailable Unavailable Robby, Capri Karla ANP-BC Unavailable Unavailable Robby, Capri Karla ANP-BC Unavailable Unavailable Robby, Capri Karla ANP-BC Unavailable Unavailable Robby, Capri Karla ANP-BC Unavailable Unavailable Robby, Capri Karla ANP-BC Unavailable Unavailable Robby, Capri Karla ANP-BC Unavailable Unavailable Robby, Capri Karla ANP-BC Unavailable Unavailable Robby, Capri Karla ANP-BC Unavailable Unavailable Robby, Capri Karla ANP-BC Unavailable Unavailable Robby, Capri Karla ANP-BC Unavailable Unavailable Robby, Capri Karla ANP-BC Unavailable Unavailable Robby, Capri Karla ANP-BC Unavailable Unavailable Robby, Capri Karla ANP-BC Unavailable Unavailable Robby, Capri Karla ANP-BC Unavailable Unavailable Robby, Capri Karla ANP-BC Unavailable Unavailable Robby, Capri Karla ANP-BC Unavailable Unavailable Robby, Capri Karla ANP-BC Unavailable Unavailable Robby, Capri Karla ANP-BC Unavailable Unavailable Robby, Capri Karla ANP-BC Unavailable Unavailable Robby, Capri Karla ANP-BC Unavailable Unavailable Robby, Capri Karla ANP-BC Unavailable Unavailable Robby, Capri Karla ANP-BC Unavailable Unavailable Robby, Capri Karla ANP-BC Unavailable Unavailable Robby, Capri Karla ANP-BC Unavailable Unavailable Robby, Capri Karla ANP-BC Unavailable Unavailable Robby, Capri Karla ANP-BC Unavailable Unavailable Robby, Capri Karla ANP-BC Unavailable Unavailable Robby, Capri Karla ANP-BC Unavailable Unavailable Robby, Capri Karla ANP-BC Unavailable Unavailable Robby, Capri Karla ANP-BC Unavailable Unavailable Robby, Capri Karla ANP-BC Unavailable Unavailable Robby, Capri Karla ANP-BC Unavailable Unavailable Robby, Capri Karla ANP-BC Unavailable Unavailable Robby, Capri Karla ANP-BC Unavailable Unavailable Robby, Capri Karla ANP-BC Unavailable Unavailable Robby, Capri Karla ANP-BC Unavailable Unavailable Robby, Capri Karla ANP-BC Unavailable Unavailable Robby, Capri Karla ANP-BC Unavailable Unavailable Robby, Capri Karla ANP-BC Unavailable Unavailable Robby, Capri Karla ANP-BC Unavailable Unavailable Robby, Capri Karla ANP-BC Unavailable Unavailable Robby, Capri Karla ANP-BC Unavailable Unavailable Robby, Capri Karla ANP-BC Unavailable Unavailable Robby, Capri Karla ANP-BC Unavailable Unavailable Robby, Capri Karla ANP-BC Unavailable Unavailable Robby, Capri Karla ANP-BC Unavailable Unavailable Robby, Capri Karla ANP-BC Unavailable Unavailable Robby, Capri Karla ANP-BC Unavailable Unavailable Robby, Capri Karla ANP-BC Unavailable Unavailable Robby, Capri Karla ANP-BC Unavailable Unavailable Robby, Capri Karla ANP-BC Unavailable Unavailable Robby, Capri Karla ANP-BC Unavailable Unavailable Robby, Capri Karla ANP-BC Unavailable Unavailable Robby, Capri Karla ANP-BC Unavailable Unavailable Robby, Capri Karla ANP-BC Unavailable Unavailable Robby, Capri Karla ANP-BC Unavailable Unavailable Robby, Capri Karla ANP-BC Unavailable Unavailable Robby, Capri Karla ANP-BC Unavailable Unavailable Robby, Capri Karla ANP-BC Unavailable Unavailable Robby, Capri Karla ANP-BC Unavailable Unavailable Robby, Capri Karla ANP-BC Unavailable Unavailable Robby, Capri Karla ANP-BC Unavailable Unavailable Robby, Capri Karla ANP-BC Unavailable Unavailable Robby, Capri Karla ANP-BC Unavailable Unavailable Robby, Capri Karla ANP-BC Unavailable Unavailable Robby, Capri Karla ANP-BC Unavailable Unavailable Robby, Capri Karla ANP-BC Unavailable Unavailable Robby, Capri Karla ANP-BC Unavailable Unavailable Robby, Capri Karla ANP-BC Unavailable Unavailable Robby, Capri Karla ANP-BC Unavailable Unavailable Robby, Capri Karla ANP-BC Unavailable Unavailable Robby, Capri Karla ANP-BC Unavailable Unavailable Robby, Capri Karla ANP-BC Unavailable Unavailable Robby, Capri Karla ANP-BC Unavailable Unavailable Robby, Capri Karla ANP-BC Unavailable Unavailable Robby, Capri Karla ANP-BC Unavailable Unavailable Robby, Capri Karla ANP-BC Unavailable Unavailable Robby, Capri Karla ANP-BC Unavailable Unavailable Robby, Capri Karla ANP-BC Unavailable Unavailable Robby, Capri Karla ANP-BC Unavailable Unavailable Robby, Capri Karla ANP-BC Unavailable Unavailable Robby, Capri Karla ANP-BC Unavailable Unavailable Robby, Capri Karla ANP-BC Unavailable Unavailable Robby, Capri Karla ANP-BC Unavailable Unavailable Robby, Capri Karla ANP-BC Unavailable Unavailable Robby, Capri Karla ANP-BC Unavailable Unavailable Robby, Capri Karla ANP-BC Unavailable Unavailable Robby, Capri Karla ANP-BC Unavailable Unavailable Robby, Capri Karla ANP-BC Unavailable Unavailable Robby, Capri Karla ANP-BC Unavailable Unavailable Robby, Capri Karla ANP-BC Unavailable Unavailable Robby, Capri Karla ANP-BC Unavailable Unavailable Robby, Capri Karla ANP-BC Unavailable Unavailable Robby, Capri Karla ANP-BC Unavailable Unavailable Robby, Capri Karla ANP-BC Unavailable Unavailable Robby, Capri Karla ANP-BC Unavailable Unavailable Robby, Capri Karla ANP-BC Unavailable Unavailable Robby, Capri Karla ANP-BC Unavailable Unavailable Robby, Capri Karla ANP-BC Unavailable Unavailable Robby, Capri Karla ANP-BC Unavailable Unavailable Robby, Capri Karla ANP-BC Unavailable Unavailable Robby, Capri Karla ANP-BC Unavailable Unavailable Robby, Capri Karla ANP-BC Unavailable Unavailable Robby, Capri Karla ANP-BC Unavailable Unavailable Robby, Capri Karla ANP-BC Unavailable Unavailable Robby, Capri Karla ANP-BC Unavailable Unavailable Robby, Capri Karla ANP-BC Unavailable Unavailable Robby, Capri Karla ANP-BC Unavailable Unavailable Re-disclosure Warning [...] is protected by Article 27-F of the [facility] Public Health law. If you continue you may have access to information: Regarding HIV / AIDS; Provided by facilities licensed or operated by the [facility] Office of Mental Health; or Provided by the [facility] Office for People With Developmental Disabilities. If such information is present, then the following [facility] mandated warning applies: This information has been [...] law may result in a fine or alf sentence or both. A general authorization for the release of medical or other information is NOT sufficient authorization for further disc losure. Encounters Encounter Providers Location Date Indications Data Source(s ) Emergency Attender: DAWSON ANDERSONConsultant: Karla [facility] 09:40:00 AM [facility] - 07/03/2020 12:50:00 PM [facility] Patient discharged. Outpatient Attender: Vane Payne NPConsultant: Karla [facility] 07/03/2020 08:46:00 AM [facility] - 07/03/2020 08:46:00 AM [facility] Outpatient Attender: Karla DORMAN 03/27 01:09:00 PM [facility] - 04/19/2020 01:09:00 PM [facility] Outpatient Attender: Karla [facility] 03/27 07:53:00 AM [facility] 04/14/2020 07:53:00 AM [facility] Outpatient Attender: Karla DORMAN 06/2019 08:33:00 AM EDT - 10/26/2019 08:33:00 AM [facility] Outpatient Attender: Karla MOODY 09/24 01:01:00 PM EDT - 10/20/2019 01:01:00 PM EDT [facility] Outpatient Attender: Karla Bustamante ANP- Family Practice 09/24 01:00:00 PM EDT [facility] ([facility]) Outpatient Attender: BO SEGOVIA STRUCTURAL ANALYST ED-HCCANTPCP 11/2019 08:58:00 AM EST - 06/01/2019 08:59:00 AM EST [facility] Patient discharged. Outpatient Attender: BO SEGOVIA STRUCTURAL ANALYST ED-[facility]ANT 04/2019 09:13:00 AM EST - 05/06/2019 09:14:00 AM EST [facility] Patient discharged. Immunizations Vaccine Date Status Description [...] BY MOUTH EVERY EVENING SOLD: 04/22/2020 [facility] 20 mg 04/19/2020 12:00:00 AM EST tablet,delayed release (DR/EC) 90 TAKE ONE TABLET BY MOUTH EVERY DAY TAKE ONE TABLET BY MOUTH EVERY DAY SOLD: 04/22/2020 [facility] pantoprazole 20 MG Delayed Release Oral Tablet Pantoprazole Sodium 04/19/2020 12:00:00 AM EST ORAL active [facility] Magnesium Oxide 400 MG Oral Tablet Magnesium Oxide 04/19/2020 12:00 :00 AM EST ORAL active [facility] ([facility]) Fenofibrate 48 MG Oral Tablet FENOFIBRATE NANOCRYSTALLIZED [...] BY MOUTH EVERY DAY SOLD: 05/31/2020 [facility] Clonidine Hydrochloride 0.1 MG Oral Tablet [...] type / Coverage type Policy ID Covered libertarian ID Covered libertarian's relationship to luna Policy Luna Plan Information [facility] [id number] SP [id number] [facility] [id number] SP [id number] [employer] NOT USE [id number] SP [id number] [facility] -[facility] [id number] 18 [id number] [facility] [place] [id number] 18 [id number] [employer] [id number] S [id number] [employer] [place] [id number] S [id number] [facility] [facility] [id number] 18 [id number] [employer] [place] [id number] SP [id number] [employer]/[place] P [id number] S [id number] [employer] [id number] SP [id number] Problems, Conditions, and Diagnoses Code Display Name Description Problem Type Effective Dates Data Source(s) Age-related osteoporosis without current pathological fracture Age-related osteoporosis without current pathological fracture Problem 12:00:00 AM EST [facility]) 164732456 Taking medication Taking medication Problem 04/19 12:00:00 AM EST [facility]) 076922996 Gastroesophageal reflux disease Gastroesophageal reflux disease Problem 04/19/2020 12:00:00 AM EST [facility] ([facility]) [id number] Essential hypertension Essential hypertension Problem 04/19/2020 12:00:00 AM EST [facility] ([facility]) [id number] Pure hyperglyceridemia Pure hyperglyceridemia Problem 04/19/2020 12:00:00 AM EST [facility]) [id number] Pure hypercholesterolemia Pure hypercholesterolemia Pr oblem 04/19/2020 12:00:00 AM EST [facility] ([facility]) K219 Gastro-esophageal reflux disease without esophagitis Gastro-esophageal reflux disease without esophagitis Diagnosis 04/14/2020 07:53:00 AM ES T [facility] N1830 Chronic kidney disease, stage 3 unspecif ied Chronic kidney disease, stage 3 unspecified Diagnosis 04/14/2020 07:53:00 AM [facility] 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 local intermodal truck driver (current) drug therapy Diagnosis 04/14/2020 07:53:00 AM [facility] E781 Pure hyperglyceridemia Pure hyperglyceridemia Diagnosi s 04/14/2020 07:53:00 AM [facility] E7800 Pure hypercholesterolemia, unspecified P ure hypercholesterolemia, unspecified Diagnosis 04/14/2020 07:53:00 AM [facility] N183 Chronic kidney disease, stage 3 (moderat e) Chronic kidney disease, stage 3 (moderate) Diagnosis 10/26/2019 08:33:00 AM T [facility] M810 Age-related osteoporosis without current pathological fracture Age-related osteoporosis without current pathological fracture Diagnosis 01:01:00 PM [facility] I10 Essential (primary) hypertension Essential (primary) h ypertension Diagnosis 10/20/2019 01:01:00 PM [facility] E87.6 Hypokalemia HYPOKALEMIA Diagnosis 06/01/2019 08:58:00 AM [facility] N18.3 Chronic kidney disease, stage 3 (moderat e) CHRONIC KIDNEY DISEASE, STAGE 3 (MODERATE) Diagnosis 06/01/2019 08:58:[facility] M81.0 Age-related osteoporosis without current pathological fracture AGE-RELATED OSTEOPOROSIS W/O CURRENT PATHOLOGICAL FRACTURE Diagnosis 020 08:58:00 AM [facility] E78.5 Hyperlipidemia, unspecified HYPERLIPIDEMIA, UNSPECIFIE D Diagnosis 06/01/2019 08:58:00 AM [facility] K21.9 Gastro-esophageal reflux disease without esophagitis GASTRO-ESOPHAGEAL REFLUX DISEASE WITHOUT ESOPHAGITIS Diagnosis 06/01/2019 08:58:00 AM [facility] I10 Essential (primary) hypertension ESSENTIAL (PRIMARY) H YPERTENSION Diagnosis 06/01/2019 08:58:00 AM [facility] Surgeries/Procedures Procedure Description Date Indications Data Source(s) Brief Emotional/Behav Assessment W/ Scoring Doc Per Standard Inst 10/20/2019 12:00:00 AM [facility] ([facility]) Admin Patient Focused Health Risk Assessment Instrument 10/20/2019 12:00:00 AM [facility] ([facility]) Hospital outpatient clinic visit for assessment and ma nagement of a patient Hospital Outpatient Clinic Visit 06/01/2019 12:00:00 AM [facility] Results ID Date Data Source [id number] 07/04/2020 09:35:00 AM [facility] [address] [place] [address] PHONE: [phone] FAX: [phone] Name .................. : TESS Donaldson Acct Number.................. : [id number] ROOM. ................. : TR-02 MR Number ................... : [id number] Stay type ............. : E/R Discharge Date......... ... : 07/03/20 Admit Date ... ...... : 07/03/20 Admit Phys .................... : JUSTIN BRADSHAW Date of ....... : 1945 Family Phys ................... : [employer] Phone .................. : [phone] Age ................................ : 75 Film# .................. .:[id number] Sex ................................. : F Unsigned transcriptions are preliminary reports and do not represent a medical or legal document CHEST PORTABLE [id number] COMPLETE:07/03/20 13:12 [facility] 3827 Reason(s): HTN PORTABLE CHEST X-RAY: INDICATION: [...] rce(s) Supporting Document(s) ID Date Data Source [id number] 07/04/2020 08:45:00 [place] [address] RESPIRATORY CARE REPORT ==== ---------NAME------- NUMBER SEX AGE ADMIT DISC. XRAY# [facility] MIGUEL Donaldson [id number] F 75 07/03/20 07/03/20 [id number] MB8 E/R DATE OF : 1945 M/R# [id number] #: [id number] TR-02 LOCATION: EMERGENCY DEPT EKG [id number] COMPLE TE:07/03/20 13:19 ED 73302 PHYSICIAN: JUSTIN BRADSHAW Name Value Range Interpretation Code Description Data Zelda rce(s) Supporting Document(s) ID Date Data Source [id number] 07/03/2020 09:40:00 AM [facility] 1 OrderSheet [facility] Emergency Department [address] [place] [address] Phone #: ext- [phone] 07/03/2020 09:32 Patient: JOSÉ MIGUEL PULIDO Sex: F : 1945 Age: 75yWEIGHT:40.8 kg (S) HEIGHT:61 inches (S) BMI:17.0ALLERGIES: No Known Drug AllergyCHIEF COMPLAINT: elevated, PCPDIAGNOSIS: Hypertensive disorderLAB ORDERSOrder Description Priority Entered Acknowledged InitialedCBC w Diff STAT 10:22 07/03/2020 10:25 Justin Dewitt Riccardo Jennifer R.N. M.D.;CMP STAT 10:07/03/2020 10:25 Justin Dewitt, Dawson Carlton R.N. M.D.;Lipase STAT 10:07/03/2020 10:25 Justin Dewitt Riccardo Jennifer R.N. M.D.;PT/PTT STAT 10:07/03/2020 10:25 Justin Dewitt Riccardo Jennifer R.N. M.D.;Troponin-T STAT 10:07/03/2020 10:25 Justin Dewitt Riccardo Jennifer R.N. M.D.;BNP STAT 10:07/03/2020 10:25 Justin Dewitt, Dawson Carlton R.N. M.D.;TSH STAT 10:07/03/2020 10:25 Justin Dewitt Riccardo Jennifer R.N. M.D.;D-Dimer STAT 10:07/03/2020 10:25 Justin Dewitt Riccardo Jennifer R.N. M.D.;Urinalysis (Clean STAT 10:30 07/03/2020 10:30 Esdras,Catch) Bianka Dewitt R.N. R.N.; Verbal order per; Dawson Anderson M.D.DIAGNOSTIC STUDY ORDERS 2 OrderSheet [facility] Emergency Department [address] [place] [address] Phone #: ext- [phone] 07/03/2020 09:32 Patient: JOSÉ MIGUEL PULIDO [facility]#: [id number] Sex: F : 1945 Age: 75yOrder Description Priority Entered Acknowledged InitialedChest Portable 1 STAT 10:22 07/03/2020 Ack'd: 10:25 10:33 Esdras,View Justin, Bianka Huang R.N.(Oxygen?(No)) MRosemary; R.N. Reason for Study: HTNMEDICATION/IV/DRIP/FLUID ORDERSOrder Description Priority Entered Acknowledged InitialedcloNIDine PO 0.1 10:07/03/2020 10:32 [place],mg Dawson Anderson R.N., M.D.;GENERAL ORDERSOrder Description Priority Entered Acknowledged InitialedBlood Pressure 10:07/03/2020 10:25 [place] [facility]Monitor Justin Dawson workforce consultantHans M.D.; Hxtp4Zgtphyl Monitor 10:07/03/2020 10:25 Ewing(continuous) Justin Dawson workforce consultantHans M.D.; Ljde4QTV 10:07/03/2020 10:25 Ewing Turshorty Dawson workforce consultantHans M.D.; Insg6BYU 10:07/03/2020 10:25 Ewing Turrin Dawson workforce consultantHans M.D.; Wcsy9Zgojku Old EKG 10:07/03/2020 10:25 Murali Turshorty Dawson workforce consultantHans M.D.; Gpwp9Xcdihp Old Records 10:07/03/2020 10:25 Murali Turrin, Dawson workforce consultantHans M.D.; Vtvq1Ktrxtb titrate to 10:07/03/2020 10:25 Tgvuesa90% Justin Dawson workforce consultantHans M.D.; Lbzk0Ijhvt oximeter 10:07/03/2020 10:25 Murali(Continuous) Turshorty Dawson workforce consultantHans M.D.; Rsfb9Cqeaqx Lock 10:22 07/03/2020 10:25 Justin Dewitt Riccardo Jennifer R.N. M.D.;Vitals 10:22 07/03/2020 10:25 E[facility] 3 OrderSheet [facility] Emergency Department [address] [place] [address] Phone #: ext- [phone] 07/03/2020 09:32 Patient: JOSÉ MIGUEL PULIDO Sex: F : 1945 Age: 75y Dawson Anderson ED, Jesse ER M.D.; Wenr9Decwmo every 15 10:23 07/03/2020 10:25 Burnhamminutes Dawson Anderson ED, Jesse ER M.D.; Tech1[Electronically signed by Bianka Dewitt R.N. (13:47 07/03/2020)][Electronically signed by Dawson Anderson M.D. (13:50 07/03/2020)][Electronically locked by Bianka Dewitt R.N. (13:47 07/03/2020)] Name Value Range Interpretation Code Description Data Zelda rce(s) Supporting Document(s) ID Date Data Source [id number] 07/03/2020 09:40:00 AM EST [facility] 1 Medication Reconciliation Report [facility] Emergency Department [address] [place] [address] Phone #: ext- [phone] 07/03/2020 09:32 Patient: [...] Value Range Interpretation Code Description Data Zelda e(s) Supporting Document(s) ID Date Data Source [id number] 07/03/2020 09:40:00 AM [place] [address] Medication Administration Record [facility] Emergency Department [address] [place] [address] Phone #: ex t- [phone] 07/03/2020 09:32 Patient: JOSÉ MIGUEL PULIDO Sex: F : 1945 Age: 75yWeight: 40.8 kgHeight/Length: 61 inBMI: 17ALLERGIES: No Known Drug Allergy Date/Time Medication Administered Medication OrderedGiven CLONIDINE [PO] cloNIDine PO 0.1 mg10:32 07/03/2020 Dose: 0.1 mg Tablets Bianka Martinez R.N. Name Value Range Interpretation Code Description Data Zelda rce(s) Supporting Document(s) ID Date Data Source [id number] 07/03/2020 09:40:00 AM [facility] 1 General Instructions [facility] Emergency Department [address] [place] [address] Phone #: ext- [phone] 07/03/2020 09:32 Patient: JOSÉ MIGUEL PULIDO Sex: F : 1945 Age: 75yEssential hypertension.INSTRUCTIONS [...] INFORMATIONEstablished High Blood Pressure 2 General Instructions [facility] Emergency Department [address] [place], [place] [address] Phone #: ext- [phone] 07/03/2020 09:32 Patient: JOSÉ MIGUEL PULIDO [facility]#: [id number] Sex: F : 1945 Age: 75yHigh blood pressure (hypertension) [...] 90 or higher.Home care 3 General Instructions [facility] Emergency Department [address] [place] [address] Phone #: ext- [phone] 07/03/2020 09:32 [id number] Sex: [facility] : 1945 Age: 75yIf you [...] that stimulate the heart. This includes many kflp-bop-qtipyxh cold and sinus decongestant pills and sprays, as well as diet pills. Check the warnings about high blood pressure on the label. Before buying any ybjm-kcq-lcwjryd medicines or supplements, always ask the pharmacist [...] home blood pressure monitor 4 General Instructions [facility] Emergency Department [address] [place] [address] Phone #: ext- [phone] 07/03/2020 09:32 Patient: JOSÉ MIGUEL PULIDO Sex: F : 1945 Age: 75yThe [place] [employer] Association advises the following guidelines for [...] appointment as directed. Bring the record of yourhome blood pressure readings to the appointment.Call [id number] you have any of these: Blood pressure of 180/120 or higher Chest pain or shortness of breath Weakness of an arm or leg or one side of the face Problems speaking or seeingWhen to get medical adviceCall your healthcare provider right away if any of these occur: 5 General Instructions [facility] Emergency Department [address] [place] [address] Phone #: ext- [phone] 07/03/2020 09:32 Patient: JOSÉ MIGUEL PULIDO Sex: F : 1945 Age: 75y Severe headache Throbbing or rushing sound in the ears Nosebleed Sudden severe pain in your belly (abdomen) Extreme drowsiness, confusion, or fainting Dizziness or spinning feeling (vertigo) [id number] [employer]. [address] [place] [address]. All rights reserved. This information is not intended as asubstitute for professional medical care. Always follow your healthcare professional's instructions. You have been given the following additional information: Hypertension, Established No strenuous activity until better.(Electronically signed by Dawson Anderson M.D. 07/03/2020 13:50) Name Value Range Interpretation Code Description Data Zelda rce(s) Supporting Document(s) ID Date Data Source [id number] 07/03/2020 09:40:00 AM [facility] 1 Clinical Report - Nurses [facility] Emergency Department [address] [place] [address] Phone #: ext- [phone] 07/03/2020 09:32 Patient: [...] STach 112. Pt went to PCP at [facility] who called EMS for high BP.).Treatment FRANCHISE DEVELOPMENT MANAGER:None.EMS Treatment FRANCHISE DEVELOPMENT MANAGER:See EMS report.SEPSIS SCREEN: SIRS SCREEN NEGATIVE. SEPSIS [...] Dewitt R.N.Allergies 2 Clinical Report - Nurses [facility] Emergency Department [address] [place] [address] Phone #: ext- [phone] 07/03/2020 09:32 Patient: [...] R.N.PHYSICAL ASSESSMENT 3 Clinical Report - Nurses [facility] Emergency Department [address] [place] [address] Phone #: ext- [phone] 07/03/2020 09:32 Patient: JOSÉ MIGUEL PULIDO Sex: [...] monitor and pulse oximeter placed on patient; manager cardiac cath- Lead II; monitoralarms on; monitor strip added [...] Dewitt R.N. 4 Clinical Report - Nurses [facility] Emergency Department [address] [place] [address] Phone #: ext- [phone] 07/03/2020 09:32 Patient: [...] RR: 22. O2 saturation: 97%. --12:12 07/03/20 [facility] [employer] 11:45 07/03/20. BP: 169/89. MAP: 115. HR: 101. RR: 23. O2 saturation: 97%. --12:13 07/03/20 [place] [id number] 12:00 07/03/20. BP: 155/91. MAP: 112. HR: 101. RR: 22. O2 saturation: 97%. --12:13 07/03/20 [facility] [employer] 11:30 07/03/2020 Clonidine PO Response: no adverse reaction symptoms have improved the patient feels better. --13:45 07/03/20 Bianka Dewitt R.N. 12:15 07/03/20. BP: 164/91. MAP: 115. HR: 102. RR: 22. O2 saturation: 97%. --13:46 07/03/20 Bianka Dewitt R.N.DISPOSITION / DISCHARGE 12:32 07/03/20. BP: 171/89. MAP: 116. HR: 105. RR: 16. O2 saturation: 98%. Temp: 97.4 F. Pain level now: 0/10. --12:33 07/03/20 [facility] [employer] 12:45 07/03/2020 Site #1 removed upon discharge. Manual pressure and bandaid applied. --12:45 07/03/20 [facility] [employer] Departure time: late entry - 12:50 07/03/2020. Condition at departure: stable. No learning barriers present. Discharge instructions provided and reviewed with the patient. Reviewed warnings (please see paper copy). Activity restrictions reviewed. Patient verbalized understanding. Written instructions provided in German. The patient was discharged by the physician. She was discharged home and accompanied by eight arm operator. She left ambulatory and via private vehicle. Boiler Room Helper driving. --13:45 07/03/20 Bianka Dewitt R.N. 5 Clinical Report - Nurses [facility] Emergency D epartment [address] [place] [address] Phone #: ext- [phone] 07/03/2020 09:32 Patient: [...] rce(s) Supporting Document(s) ID Date Data Source [id number] 07/03/2020 09:40:00 AM EST [facility] 1 Clinical Report - Physicians/Mid Levels [facility] Emergency Department [address] [place] [address] Phone #: ext- [phone] 07/03/2020 09:32 Patient: JOSÉ MIGUEL PULIDO [facility]#: [id number] Sex: F : 1945 Age: 75y Time [...] 07/03/2020. 2 Clinical Report - Physicians/Mid Levels [facility] Emergency Department [address] [place] [address] Phone #: [phone] ktu- [phone] 07/03/2020 09:32 Patient: JOSÉ MIGUEL PULIDO Sex: F : 1945 Age: 75y Allergies: [...] making process. Urinalysis: ([place]: 07/03/2020 10:10) ( [facility] 07/03/2020 10:52) Final results Test Result Flag Units (Reference) URINALYSIS URINALYSIS SOURCE Clean Catch COLOR yellow (NORMAL: Yello CLARITY clear (NORMAL: Clear SPEC GRAVITY 1.010 (1.001 - 1.030 pH 6.5 (5 - 9) GLUCOSE NORM (NORMAL: Negat BILIRUBIN NEG (NORMAL: Negat 3 Clinical Report - Physicians/Mid Levels [facility] Emergency Department [address] [place] [address] Phone #: ext- [phone] 07/03/2020 09:32 Patient: [...] 8.2) 4 Clinical Report - Physicians/Mid Levels [facility] Emergency Department [address] [place] [address] Phone #: ext- [phone] 07/03/2020 09:32 Patient: [...] - 60) PT/PTT: ([place]: 07/03/2020 10:28) ( [facility] 07/03/2020 10:51) Final results Test Result Flag Units (Reference) PROTIME 12.9 SECONDS (11.0 - 15.5) INR 0.93 (0.93 - 1.23) PTT 24.3 L SECONDS (24.8 - 36.7) \\BLDo\\INR INTERPRETATION\\BLDx\\ Therapeutic range for Coumadin and related oral anticoagulants. -International Normalized Ratio (INR): 2.0 - 3.0 for Venous Thrombosis, Pulmonary Embolus, Tissue heart valves, Acute DC Atrial Fibrillation, Valvular heart disease and recurrent Systemic Embolism. -International Normalized Ratio (INR): 2.5 - 3.5 for Mechanical Prosthetic valve. Troponin-T: ([place]: 07/03/2020 10:28) ( [facility] 07/03/2020 10:58) Final results Test Result Flag Units (Reference) TROPONIN T <0.01 NG/ML (0.00 - 0.10) TROPONIN T0.1 ng/ml Recommended as the clinical threshold value forTroponin T. BNP: ([place]: 07/03/2020 10:28) ( [facility] 07/03/2020 11:10) Final results Test Result Flag Units (Reference) BNP 289 PG/ML (0 - 450) TSH: ([place]: 07/03/2020 10:28) ( [facility] 07/03/2020 11:10) Final results Test Result Flag Units (Reference) TSH 0.65 uIU/mL (0.47 - 5.01) D-Dimer: ([place]: 07/03/2020 10:28) ( [facility] 07/03/2020 11:01) Final results Test Result Flag Units (Reference) D-DIMER QUANT 0.43 ug/mL (0.27 - 0.50). 5 Clinical Report - Physicians/Mid Levels [facility] Emergency Department [address] [place] [address] Phone #: ext- [phone] 07/03/2020 09:32 Patient: JOSÉ MIGUEL PULIDO Sex: [...] will d/c w instructions to f/u w CONTROL PANEL TESTER soon; she understands and agrees. Patient counseled [...] daily. 6 Clinical Report - Physicians/Mid Levels [facility] Emergency Department [address] [place] [address] Phone #: ext- [phone] 07/03/2020 09:32 Patient: [...] rce(s) Supporting Document(s) ID Date Data Source [id number] 07/03/2020 11:53:00 AM [facility] Name Value Range Interpretation Code Description Data Zelda rce(s) Supporting Document(s) Lipase [Enzymatic activity/volume] in Serum or Plasma 12 U/L 13 - 60 L [facility] ID Date Data Source [id number] 07/03/2020 11:53:00 AM [facility] Name Value Range Interpretation Code Description Data Zelda rce(s) Supporting Document(s) COMPREHENSIVE METABOLIC PANEL [facility] COMPREHENSIVE METABOLIC PANEL Sodium [Moles/volume] in Serum or Plasma 142 mEq/L 134 - 153 [facility] Potassium [Moles/volume] in Serum or Plasma 3.3 mEq/L 3.6 - 5.0 L [facility] Chloride [Moles/volume] in Serum or Plasma 105 mEq/L 98 - 107 [facility] Carbon dioxide, total [Moles/volume] in Serum or Plasma 23 MEQ/L 22 - 30 [facility] Glucose [Mass/volume] in Serum or Plasma 128 MG/DL 70 - 99 H [facility] BUN 14 MG/DL 7 - 21 [facility] al Creatinine [Mass/volume] in Serum or Plasma 0.9 MG/DL 0.7 - 1.5 [facility] BUN/CREAT 16 8 - 27 [facility] al Protein [Mass/volume] in Serum or Plasma 7.0 G/DL 6.3 - 8.2 [facility] Albumin [Mass/volume] in Serum or Plasma 4.6 G/DL 3.9 - 5.0 [facility] Globulin [Mass/volume] in Serum by calculation 2.4 GM/DL 2.4 - 3.2 [facility] A/G RATIO 1.9 0.8 - 2.0 [facility] Calcium [Mass/volume] in Serum or Plasma 9.6 MG/DL 8.4 - 10.2 [facility] Bilirubin.total [Mass/volume] in Serum or Plasma <0.7 MG/DL 0.2 - 1.3 [facility] Alkaline phosphatase [Enzymatic activity/volume] in Serum or Plasma 68 U/L 38 - 126 [facility] Aspartate aminotransferase [Enzymatic activity/volume] in Serum or Plasma 16 U/L 5 - 40 [facility] Alanine aminotransferase [Enzymatic activity/volume] in Seru m or Plasma 11 U/L 7 - 56 [facility] Anion gap 3 in Serum or Plasma 14.0 mmol/L 8.0 - 16.0 [facility] 75 [facility] mL/min [facility] AFR AMER GFR >60 [facility] Male GFR In terprentation 20-49 [...] >32 mL/min Normal ID Date Data Source [id number] 07/03/2020 11:10:00 AM [facility] Value Range Interpretation Code Description Data Zelda rce(s) Supporting Document(s) Thyrotropin [Units/volume] in Serum or Plasma by Detec tion limit <= 0.05 mIU/L 0.65 uIU/mL 0.47 - 5.01 [facility] ID Date Data Source [id number] 07/03/2020 11:10:00 AM [facility] Value Range Interpretation Code Description Data Zelda rce(s) Supporting Document(s) BNP 289 PG/ML 0 - 450 [facility] al ID Date Data Source [id number] 07/03/2020 11:00:00 AM [facility] Value Range Interpretation Code Description Data Zelda rce(s) Supporting Document(s) Fibrin D-dimer FEU [Mass/volume] in Platelet poor plasma 0.43 ug /mL 0.27 - 0.50 [facility] ID Date Data Source [id number] 07/03/2020 10:58:00 AM [facility] Value Range Interpretation Code Description Data Zelda rce(s) Supporting Document(s) CBC W/AUTOMATED DIFF [facility] COMPLETE BLOOD COUNT Leukocytes [#/volume] in Blood by Automated count 8.8 10^3/uL 4.2 - 1 1.0 [facility] Erythrocytes [#/volume] in Blood by Automated count 4.15 10^6/uL 4. 20 - 5.40 L [facility] Hemoglobin [Mass/volume] in Blood 12.1 g/dL 12.0 - 16.0 [facility] Hematocrit [Volume Fraction] of Blood by Automated count 37.2 % 3 7.0 - 47.0 [facility] Erythrocyte mean corpuscular volume [Entitic volume] by Auto mated count 89.6 fL 81.0 - 101 [facility] Erythrocyte mean corpuscular hemoglobin [Entitic mass] by Automated count 29.2 pg 27.0 - 34.0 [facility] Erythrocyte mean corpuscular hemoglobin concentration [Mass/volume] by Automated count 32.5 g/dL 31.0 - 36.0 [facility] Erythrocyte distribution width [Ratio] by Automated count 14.0 % 11.5 - 14.5 [facility] Platelets [#/volume] in Blood by Automated count 267 10^3/uL 150 - 45 0 [facility] Platelet mean volume [Entitic volume] in Blood by Automated count 9.7 fL 7.4 - 10.4 [facility] Neutrophils/100 leukocytes in Blood by Automated count 83.6 % 37. 0 - 80.0 H [facility] Lymphocytes/100 leukocytes in Blood by Manual count 11.9 % 25.0 - 40.0 L [facility] Monocytes/100 leukocytes in Blood by Automated count 3.5 % 3.0 - 8.0 [facility] Eosinophils/100 leukocytes in Blood by Automated count 0.0 % 0.0 - 7.0 [facility] Basophils/100 leukocytes in Blood by Automated count 0.5 % 0.0 - 2.5 [facility] %IG 0.5 % 0.0 - 0.0 H [facility] %NRBC 0.0 % 0.0 - 0.0 [facility] al Neutrophils [#/volume] in Blood by Automated count 7.35 10^3/uL 2.00 - 6.90 H [facility] Lymphocytes [#/volume] in Blood by Automated count 1.05 10^3/uL 0.60 - 3.40 [facility] Monocytes [#/volume] in Blood by Automated count 0.31 10^3/uL 0.00 - 0.90 [facility] Eosinophils [#/volume] in Blood by Automated count 0.00 10^3/uL 0.00 - 0.70 [facility] Basophils [#/volume] in Blood by Automated count 0.04 10^3/uL 0.00 - 0.20 [facility] #IG 0.04 10^3/uL 0.00 - 0.10 [facility] ospital #NRBC 0.00 10^3/uL 0.00 - 0.00 [facility] ospital MANUAL DIFF SEE BELOW [facility] Segmented neutrophils/100 leukocytes in Blood by Manual count 87 % 37 - 80 H [facility] %LYMPH 9 % 25 - 40 L [facility] al %MONO 4 % 3 - 8 [facility] al RBC MORPH NOT INDICATED [facility] Ho spital ID Date Data Source [id number] 07/03/2020 10:58:00 AM EST [facility] Name Value Range Interpretation Code Description Data Zelda rce(s) Supporting Document(s) TROPONIN T <0.01 NG/ML 0.00 - 0.10 [facility] ospital TROPONIN T0.1 ng/ml Recommended as the c linical threshold value forTroponin T. ID Date Data Source [id number] 07/03/2020 10:51:00 AM [facility] Name Value Range Interpretation Code Description Data Zelda rce(s) Supporting Document(s) Prothrombin time (PT) 12.9 SECONDS 11.0 - 15.5 [facility] INR in Platelet poor plasma by Coagulation assay 0.93 0.93 - 1. 23 [facility] aPTT in Blood by Coagulation assay 24.3 SECONDS 24.8 - 36.7 L [facility] \\BLDo\\INR INTERPRETATION\\BLDx\\ Therapeutic range for Coumadin and related oral anticoagulants. - International Normalized Ratio (INR): 2.0 - 3.0 for Venous Thrombosis, Pulmonary Embolus, Tissue heart valves, Acute DC Atrial Fibrillation, Valvular heart disease and recurrent Systemic Embolism. - International Normalized Ratio (INR): 2.5 - 3.5 for Mechanical Prosthetic valve. ID Date Data Source [id number] 07/03/2020 10:51:00 AM EST [facility] Name Value Range Interpretation Code Description Data Zelda rce(s) Supporting Document(s) URINALYSIS [facility] URINALYSIS SOURCE Clean Catch [facility]osp ital COLOR yellow NORMAL: Yellow [facility] ospital CLARITY clear NORMAL: Clear [facility] Ho spital Specific gravity of Urine by Test strip 1.010 1.001 - 1.030 [facility] pH 6.5 5 - 9 [facility] Glucose [Mass/volume] in Urine by Test strip NORM NORMAL: Negat jamison [facility] Bilirubin.total [Presence] in Urine by Test strip NEG NORMAL: Negative [facility] Ketones [Presence] in Urine by Test strip NEG NORMAL: Negative [facility] Protein [Mass/volume] in Urine by Test strip 100 NORMAL: Negat jamison [facility] Nitrite [Presence] in Urine by Test strip NEG NORMAL: Negative [facility] BLOOD 10 NORMAL: Negative [facility] Leukocyte esterase [Presence] in Urine by Test strip NEG KIP L: Negative [facility] Urobilinogen [Mass/volume] in Urine by Test strip NOR less radha n 1.0 mg/dL [facility] MICROSCOPIC See Below [facility] WBC 1 - 3 NORMAL: NONE SEEN [facility] Erythrocytes [#/volume] in Urine by Test strip 0 - 1 NORMAL: NON E SEEN [facility] EPITHELIAL FEW NORMAL: NONE SEEN [facility] ID Date Data Source [id number] 04/15/2020 06:41:00 PM EST [facility] Name Value Range Interpretation Code Description Data Zelda rce(s) Supporting Document(s) Thyrotropin [Units/volume] in Serum or Plasma by Detec tion limit <= 0.05 mIU/L 1.01 uIU/mL 0.47 - 5.01 [facility] ID Date Data Source [id number] 04/15/2020 03:07:00 AM EST [facility] Name Value Range Interpretation Code Description Data Zelda rce(s) Supporting Document(s) CVE PANEL [facility] LIPID PANEL Cholesterol [Mass/volume] in Serum or Plasma 176 MG/DL 131 - 200 [facility] Deprecated Triglyceride [Mass/volume] in Serum or Plasma 155 MG/DL 3 5 - 160 [facility] HDL 56 MG/DL 29 - 86 [facility] Cholesterol in LDL [Mass/volume] in Serum or Plasma by Direc t assay 97 mg/dL 65 - 175 [facility] Cholesterol.total/Cholesterol in HDL [Mass Ratio] in Serum o r Plasma 3.1 3.2 - 4.4 L [facility] LDL/HDL 1.73 1.47 - 3.22 [facility] CVE RISK CHOL/HDL LDL/HDLMEN: 1/2 AVERAGE 3.43 1.00 AVERAGE 4.97 3.55 2X AVERAGE 9.55 6.25 3X AVERAGE 23.99 7.99WOMEN: 1/2 AVERAGE 3.27 1.47 AVERAGE 4.44 3.22 2X AVERAGE 7.05 5.03 3X AVERAGE 11.04 6.14 ID Date Data Source [id number] 04/15/2020 12:02:00 AM [facility] Name Value Range Interpretation Code Description Data Zelda rce(s) Supporting Document(s) Magnesium [Mass/volume] in Serum or Plasma 1.3 MG/DL 1.7 - 2.2 L [facility] ID Date Data Source [id number] 04/15/2020 12:02:00 AM [facility] Name Value Range Interpretation Code Description Data Zelda rce(s) Supporting Document(s) COMPREHENSIVE METABOLIC PANEL [facility] COMPREHENSIVE METABOLIC PANEL Sodium [Moles/volume] in Serum or Plasma 143 mEq/L 134 - 153 [facility] Potassium [Moles/volume] in Serum or Plasma 4.0 mEq/L 3.6 - 5.0 [facility] Chloride [Moles/volume] in Serum or Plasma 107 mEq/L 98 - 107 [facility] Carbon dioxide, total [Moles/volume] in Serum or Plasma 27 MEQ/L 22 - 30 [facility] Glucose [Mass/volume] in Serum or Plasma 108 MG/DL 65 - 110 [facility] BUN 28 MG/DL 7 - 21 [facility] Creatinine [Mass/volume] in Serum or Plasma 1.0 MG/DL 0.7 - 1.5 [facility] BUN/CREAT 28 8 - 27 H [facility] al Protein [Mass/volume] in Serum or Plasma 6.9 G/DL 6.3 - 8.2 [facility] Albumin [Mass/volume] in Serum or Plasma 4.4 G/DL 3.9 - 5.0 [facility] Globulin [Mass/volume] in Serum by calculation 2.5 GM/DL 2.4 - 3.2 [facility] A/G RATIO 1.8 0.8 - 2.0 [facility] Calcium [Mass/volume] in Serum or Plasma 10.0 MG/DL 8.4 - 10.2 [facility] Bilirubin.total [Mass/volume] in Serum or Plasma <0.7 MG/DL 0.2 - 1.3 [facility] Alkaline phosphatase [Enzymatic activity/volume] in Serum or Plasma 82 U/L 38 - 126 [facility] Aspartate aminotransferase [Enzymatic activity/volume] in Serum or Plasma 16 U/L 5 - 40 [facility] Alanine aminotransferase [Enzymatic activity/volume] in Seru m or Plasma 11 U/L 7 - 56 [facility] Anion gap 3 in Serum or Plasma 9.0 mmol/L 8.0 - 16.0 [facility]GE 75 [facility] 57 [facility]/min [facility] AFR AMER GFR >60 [facility] Male GFR In terprentation [...] >32 mL/min Normal ID Date Data Source [id number] 04/14/2020 05:32:00 PM EST [facility] Name Value Range Interpretation Code Description Data Zelda rce(s) Supporting Document(s) Hemoglobin A1c/Hemoglobin.total in Blood 6.6 % 4.4 - 6.1 H [facility] {A1]{HB] ID Date Data Source [id number] 04/14/2020 04:39:00 PM EST [facility] Name Value Range Interpretation Code Description Data Zelda rce(s) Supporting Document(s) CBC W/AUTOMATED DIFF [facility] COMPLETE BLOOD COUNT Leukocytes [#/volume] in Blood by Automated count 8.1 10^3/uL 4.2 - 1 1.0 [facility] Erythrocytes [#/volume] in Blood by Automated count 3.81 10^6/uL 4. 20 - 5.40 L [facility] Hemoglobin [Mass/volume] in Blood 11.0 g/dL 12.0 - 16.0 L [facility] Hematocrit [Volume Fraction] of Blood by Automated count 35.0 % 3 7.0 - 47.0 L [facility] Erythrocyte mean corpuscular volume [Entitic volume] by Auto mated count 91.9 fL 81.0 - 101 [facility] Erythrocyte mean corpuscular hemoglobin [Entitic mass] by Automated count 28.9 pg 27.0 - 34.0 [facility] Erythrocyte mean corpuscular hemoglobin concentration [Mass/volume] by Automated count 31.4 g/dL 31.0 - 36.0 [facility] Erythrocyte distribution width [Ratio] by Automated count 13.6 % 11.5 - 14.5 [facility] Platelets [#/volume] in Blood by Automated count 331 10^3/uL 150 - 45 0 [facility] Platelet mean volume [Entitic volume] in Blood by Automated count 9.7 fL 7.4 - 10.4 [facility] Neutrophils/100 leukocytes in Blood by Automated count 70.9 % 37. 0 - 80.0 [facility] Lymphocytes/100 leukocytes in Blood by Manual count 20.0 % 25.0 - 40.0 L [facility] Monocytes/100 leukocytes in Blood by Automated count 6.0 % 3.0 - 8.0 [facility] Eosinophils/100 leukocytes in Blood by Automated count 1.9 % 0.0 - 7.0 [facility] Basophils/100 leukocytes in Blood by Automated count 0.6 % 0.0 - 2.5 [facility] %IG 0.6 % 0.0 - 0.0 [facility] %NRBC 0.0 % 0.0 - 0.0 [facility] Neutrophils [#/volume] in Blood by Automated count 5.74 10^3/uL 2.00 - 6.90 [facility] Lymphocytes [#/volume] in Blood by Automated count 1.62 10^3/uL 0.60 - 3.40 [facility] Monocytes [#/volume] in Blood by Automated count 0.49 10^3/uL 0.00 - 0.90 [facility] Eosinophils [#/volume] in Blood by Automated count 0.15 10^3/uL 0.00 - 0.70 [facility] Basophils [#/volume] in Blood by Automated count 0.05 10^3/uL 0.00 - 0.20 [facility] #IG 0.05 10^3/uL 0.00 - 0.10 [facility] #NRBC 0.00 10^3/uL 0.00 - 0.00 [facility] MANUAL DIFF NOT INDICATED [facility] RBC MORPH NOT INDICATED [facility] ID Date Data Source [id number] 04/14/2020 07:53:00 AM EST [facility] ([facility]) Name Value Range Interpretation Code Description Data Zelda rce(s) Supporting Document(s) Magnesium [Mass/volume] in Serum or Plasma 1.3 mg/dL 1.7-2.2 [place] w low normal [facility] ([facility] FASTING~.~.~<DG1.3.1>E78.00</DG1.3.1><DG1.3.1>E78.1</DG1.3.1><DG1.3.1>Z79.899</D G1.3.1><DG1. ID Date Data Source [id number] 04/14/2020 07:53:00 AM EST [facility] ([facility]) Name Value Range Interpretation Code Description Data Zelda rce(s) Supporting Document(s) Cve Panel Laboratory test result [facility] ([facility] FASTING~.~.~<DG1.3.1>E78.00</DG1.3.1><DG1.3.1>E78.1</DG1.3.1><DG1.3.1>Z79.899</D G1.3.1><DG1. Cholesterol 176 mg/dL 131-200 [facility] ([facility]) FASTING~.~.~<DG1.3.1>E78.00</DG1.3.1><DG1.3.1>E78.1</DG1.3.1><DG1.3.1>Z79.899</D G1.3.1><DG1. Triglycerides 155 mg/dL 35-160 [facility] ([facility] FASTING~.~.~<DG1.3.1>E78.00</DG1.3.1><DG1.3.1>E78.1</DG1.3.1><DG1.3.1>Z79.899</D G1.3.1><DG1. HDL 56 mg/dL 29-86 [facility] ([facility]) FASTING~.~.~<DG1.3.1>E78.00</DG1.3.1><DG1.3.1>E78.1</DG1.3.1><DG1.3.1>Z79.899</D G1.3.1><DG1. LDL 97 mg/dL 65-175 [facility] ([facility]) FASTING~.~.~<DG1.3.1>E78.00</DG1.3.1><DG1.3.1>E78.1</DG1.3.1><DG1.3.1>Z79.899</D G1.3.1><DG1. Risk Factor 3.1 3.2-4.4 Below low normal [facility] ([facility] FASTING~.~.~<DG1.3.1>E78.00</DG1.3.1><DG1.3.1>E78.1</DG1.3.1><DG1.3.1>Z79.899</D G1.3.1><DG1. LDL/HDL 1.73 1.47-3.22 [facility] ([facility]) FASTING~.~.~<DG1.3.1>E78.00</DG1.3.1><DG1.3.1>E78.1</DG1.3.1><DG1.3.1>Z79.899</D G1.3.1><DG1. ID Date Data Source [id number] 04/14/2020 07:53:00 AM EST [facility] ([facility]) Name Value Range Interpretation Code Description Data Zelda rce(s) Supporting Document(s) Hemoglobin A1c/Hemoglobin.total in Blood 6.6 % 4.4-6.1 Above high normal [facility] ([facility] FASTING~.~.~<DG1.3.1>E78.00</DG1.3.1><DG1.3.1>E78.1</DG1.3.1><DG1.3.1>Z79.899</D G1.3.1><DG1. Thyrotropin [Units/volume] in Serum or Plasma 1.01 uIU/mL 0.47-5.01 [facility] ([facility] FASTING~.~.~<DG1.3.1>E78.00</DG1.3.1><DG1.3.1>E78.1</DG1.3.1><DG1.3.1>Z79.899</D G1.3.1><DG1. ID Date Data Source [id number] 04/14/2020 07:53:00 AM EST [facility] ([facility]) Name Value Range Interpretation Code Description Data Zelda rce(s) Supporting Document(s) Comprehensive Metabo Laboratory test result [facility] ([facility] FASTING~.~.~<DG1.3.1>E78.00</DG1.3.1><DG1.3.1>E78.1</DG1.3.1><DG1.3.1>Z79.899</D G1.3.1><DG1. Potassium 4.0 meq/L 3.6-5.0 [facility] ([facility]) FASTING~.~.~<DG1.3.1>E78.00</DG1.3.1><DG1.3.1>E78.1</DG1.3.1><DG1.3.1>Z79.899</D G1.3.1><DG1. Sodium 143 meq/L 134-153 [facility] ([facility]) FASTING~.~.~<DG1.3.1>E78.00</DG1.3.1><DG1.3.1>E78.1</DG1.3.1><DG1.3.1>Z79.899</D G1.3.1><DG1. Chloride 107 meq/L 98-107 [facility] ([facility]) FASTING~.~.~<DG1.3.1>E78.00</DG1.3.1><DG1.3.1>E78.1</DG1.3.1><DG1.3.1>Z79.899</D G1.3.1><DG1. Co2 27 meq/L 22-30 [facility] ([facility]) FASTING~.~.~<DG1.3.1>E78.00</DG1.3.1><DG1.3.1>E78.1</DG1.3.1><DG1.3.1>Z79.899</D G1.3.1><DG1. Creatinine 1.0 mg/dL 0.7-1.5 [facility] ([facility]) FASTING~.~.~<DG1.3.1>E78.00</DG1.3.1><DG1.3.1>E78.1</DG1.3.1><DG1.3.1>Z79.899</D G1.3.1><DG1. BUN 28 mg/dL 7-21 Above high normal [facility] ([facility]) FASTING~.~.~<DG1.3.1>E78.00</DG1.3.1><DG1.3.1>E78.1</DG1.3.1><DG1.3.1>Z79.899</D G1.3.1><DG1. Glucose 108 mg/dL 65-110 [facility] ([facility]) FASTING~.~.~<DG1.3.1>E78.00</DG1.3.1><DG1.3.1>E78.1</DG1.3.1><DG1.3.1>Z79.899</D G1.3.1><DG1. Total Protein 6.9 g/dL 6.3-8.2 [facility] ([facility] FAST[facility]~.~.~<DG1.3.1>E78.00</DG1.3.1><DG1.3.1>E78.1</DG1.3.1><DG1.3.1>Z79.899</D G1.3.1><DG1. BUN/Creat 28 8-27 Above high normal [facility] ([facility]) FASTING~.~.~<DG1.3.1>E78.00</DG1.3.1><DG1.3.1>E78.1</DG1.3.1><DG1.3.1>Z79.899</D G1.3.1><DG1. Albumin 4.4 g/dL 3.9-5.0 [facility] ([facility]) FASTING~.~.~<DG1.3.1>E78.00</DG1.3.1><DG1.3.1>E78.1</DG1.3.1><DG1.3.1>Z79.899</D G1.3.1><DG1. Globulin 2.5 GM/DL 2.4-3.2 [facility] ([facility]) FASTING~.~.~<DG1.3.1>E78.00</DG1.3.1><DG1.3.1>E78.1</DG1.3.1><DG1.3.1>Z79.899</D G1.3.1><DG1. A/G Ratio 1.8 0.8-2.0 [facility] ([facility]) FASTING~.~.~<DG1.3.1>E78.00</DG1.3.1><DG1.3.1>E78.1</DG1.3.1><DG1.3.1>Z79.899</D G1.3.1><DG1. Calcium 10.0 mg/dL 8.4-10.2 [facility] ([facility]) FASTING~.~.~<DG1.3.1>E78.00</DG1.3.1><DG1.3.1>E78.1</DG1.3.1><DG1.3.1>Z79.899</D G1.3.1><DG1. Total Bili Laboratory test result 0.2-1.3 [facility] ([facility]~.~.~<DG1.3.1>E78.00</DG1.3.1><DG1.3.1>E78.1</DG1.3.1><DG1.3.1>Z79.899</D G1.3.1><DG1. Sgot/Ast 16 U/L 5-40 [facility] ([facility]) FASTING~.~.~<DG1.3.1>E78.00</DG1.3.1><DG1.3.1>E78.1</DG1.3.1><DG1.3.1>Z79.899</D G1.3.1><DG1. Alkaline Phos 82 U/L 38-126 [facility] ([facility] FASTING~.~.~<DG1.3.1>E78.00</DG1.3.1><DG1.3.1>E78.1</DG1.3.1><DG1.3.1>Z79.899</D G1.3.1><DG1. SGPT/Alt 11 U/L 7-56 [facility] ([facility]) FASTING~.~.~<DG1.3.1>E78.00</DG1.3.1><DG1.3.1>E78.1</DG1.3.1><DG1.3.1>Z79.899</D G1.3.1><DG1. Anion Gap 9.0 mmol/L 8.0-16.0 [facility] ([facility]) FASTING~.~.~<DG1.3.1>E78.00</DG1.3.1><DG1.3.1>E78.1</DG1.3.1><DG1.3.1>Z79.899</D G1.3.1><DG1. Age 75 yrs [facility] ([facility]) FASTING~.~.~<DG1.3.1>E78.00</DG1.3.1><DG1.3.1>E78.1</DG1.3.1><DG1.3.1>Z79.899</D G1.3.1><DG1. Non-Aa GFR 57 mL/min [facility] ([facility]) FASTING~.~.~<DG1.3.1>E78.00</DG1.3.1><DG1.3.1>E78.1</DG1.3.1><DG1.3.1>Z79.899</D G1.3.1><DG1. Afr Amer GFR Laboratory test result [facility] ([facility]~.~.~<DG1.3.1>E78.00</DG1.3.1><DG1.3.1>E78.1</DG1.3.1><DG1.3.1>Z79.899</D G1.3.1><DG1. ID Date Data Source [id number] 04/14/2020 07:53:00 AM EST [facility] ([facility]) Name Value Range Interpretation Code Description Data Zelda rce(s) Supporting Document(s) CBC W/Automated Diff Laboratory test result [facility]~.~<DG1.3.1>E78.00</DG1.3.1><DG1.3.1>E78.1</DG1.3.1><DG1.3.1>Z79.899</D G1.3.1><DG1. WBC 8.1 10^3/uL 4.2-11.0 [facility] ([facility]) FASTING~.~.~<DG1.3.1>E78.00</DG1.3.1><DG1.3.1>E78.1</DG1.3.1><DG1.3.1>Z79.899</D G1.3.1><DG1. Hemoglobin 11.0 g/dL 12.0-16.0 Below low normal [facility] ( [facility] FASTING~.~.~<DG1.3.1>E78.00</DG1.3.1><DG1.3.1>E78.1</DG1.3.1><DG1.3.1>Z79.899</D G1.3.1><DG1. RBC 3.81 10^6/uL 4.20-5.40 Below low normal [facility] ([facility]) FASTING~.~.~<DG1.3.1>E78.00</DG1.3.1><DG1.3.1>E78.1</DG1.3.1><DG1.3.1>Z79.899</D G1.3.1><DG1. Hematocrit 35.0 % 37.0-47.0 Below low normal [facility] ( [facility] FASTING~.~.~<DG1.3.1>E78.00</DG1.3.1><DG1.3.1>E78.1</DG1.3.1><DG1.3.1>Z79.899</D G1.3.1><DG1. MCH 28.9 pg 27.0-34.0 [facility] ([facility]) FASTING~.~.~<DG1.3.1>E78.00</DG1.3.1><DG1.3.1>E78.1</DG1.3.1><DG1.3.1>Z79.899</D G1.3.1><DG1. MCV 91.9 fL 81.0-101 [facility] ([facility]) FASTING~.~.~<DG1.3.1>E78.00</DG1.3.1><DG1.3.1>E78.1</DG1.3.1><DG1.3.1>Z79.899</D G1.3.1><DG1. MCHC 31.4 g/dL 31.0-36.0 [facility] ([facility]) FASTING~.~.~<DG1.3.1>E78.00</DG1.3.1><DG1.3.1>E78.1</DG1.3.1><DG1.3.1>Z79.899</D G1.3.1><DG1. RDW 13.6 % 11.5-14.5 [facility] ([facility]) FASTING~.~.~<DG1.3.1>E78.00</DG1.3.1><DG1.3.1>E78.1</DG1.3.1><DG1.3.1>Z79.899</D G1.3.1><DG1. Platelets 331 10^3/uL 150-450 [facility] ([facility]) FASTING~.~.~<DG1.3.1>E78.00</DG1.3.1><DG1.3.1>E78.1</DG1.3.1><DG1.3.1>Z79.899</D G1.3.1><DG1. Neut 70.9 % 37.0-80.0 [facility] ([facility]) FASTING~.~.~<DG1.3.1>E78.00</DG1.3.1><DG1.3.1>E78.1</DG1.3.1><DG1.3.1>Z79.899</D G1.3.1><DG1. MPV 9.7 fL 7.4-10.4 [facility] ([facility]) FASTING~.~.~<DG1.3.1>E78.00</DG1.3.1><DG1.3.1>E78.1</DG1.3.1><DG1.3.1>Z79.899</D G1.3.1><DG1. [place] 6.0 % 3.0-8.0 [facility] ([facility]) FASTING~.~.~<DG1.3.1>E78.00</DG1.3.1><DG1.3.1>E78.1</DG1.3.1><DG1.3.1>Z79.899</D G1.3.1><DG1. Lymph 20.0 % 25.0-40.0 Below low normal [facility] ( [facility]~.~<DG1.3.1>E78.00</DG1.3.1><DG1.3.1>E78.1</DG1.3.1><DG1.3.1>Z79.899</D G1.3.1><DG1. Baso 0.6 % 0.0-2.5 [facility] ([facility]) FASTING~.~.~<DG1.3.1>E78.00</DG1.3.1><DG1.3.1>E78.1</DG1.3.1><DG1.3.1>Z79.899</D G1.3.1><DG1. %Ig 0.6 % 0.0-0.0 Above high normal [facility] ([facility]) FASTING~.~.~<DG1.3.1>E78.00</DG1.3.1><DG1.3.1>E78.1</DG1.3.1><DG1.3.1>Z79.899</D G1.3.1><DG1. Eos 1.9 % 0.0-7.0 [facility] ([facility]) FASTING~.~.~<DG1.3.1>E78.00</DG1.3.1><DG1.3.1>E78.1</DG1.3.1><DG1.3.1>Z79.899</D G1.3.1><DG1. %NRBC 0.0 % 0.0-0.0 [facility] ([facility]) FASTING~.~.~<DG1.3.1>E78.00</DG1.3.1><DG1.3.1>E78.1</DG1.3.1><DG1.3.1>Z79.899</D G1.3.1><DG1. #Neut 5.74 10^3/uL 2.00-6.90 [facility] ([facility] FAST[facility]~.~.~<DG1.3.1>E78.00</DG1.3.1><DG1.3.1>E78.1</DG1.3.1><DG1.3.1>Z79.899</D G1.3.1><DG1. #Lymph 1.62 10^3/uL 0.60-3.40 [facility] ([facility] FAST[facility]~.~.~<DG1.3.1>E78.00</DG1.3.1><DG1.3.1>E78.1</DG1.3.1><DG1.3.1>Z79.899</D G1.3.1><DG1. #[place] 0.49 10^3/uL 0.00-0.90 [facility]~.~<DG1.3.1>E78.00</DG1.3.1><DG1.3.1>E78.1</DG1.3.1><DG1.3.1>Z79.899</D G1.3.1><DG1. #Baso 0.05 10^3/uL 0.00-0.20 [facility] FAST[facility]~.~.~<DG1.3.1>E78.00</DG1.3.1><DG1.3.1>E78.1</DG1.3.1><DG1.3.1>Z79.899</D G1.3.1><DG1. #Eos 0.15 10^3/uL 0.00-0.70 [facility] ([facility] FASTING[facility]~.~<DG1.3.1>E78.00</DG1.3.1><DG1.3.1>E78.1</DG1.3.1><DG1.3.1>Z79.899</D G1.3.1><DG1. #Ig 0.05 10^3/uL 0.00-0.10 [facility] ([facility] FASTING~.~.~<DG1.3.1>E78.00</DG1.3.1><DG1.3.1>E78.1</DG1.3.1><DG1.3.1>Z79.899</D G1.3.1><DG1. Manual Diff [facility]~.~<DG1.3.1>E78.00</DG1.3.1><DG1.3.1>E78.1</DG1.3.1><DG1.3.1>Z79.899</D G1.3.1><DG1. #NRBC 0.00 10^3/uL 0.00-0.00 [facility] ([facility] FAST[facility]~.~.~<DG1.3.1>E78.00</DG1.3.1><DG1.3.1>E78.1</DG1.3.1><DG1.3.1>Z79.899</D G1.3.1><DG1. RBC Morph Laboratory test result [facility] ([facility] FASTING~.~.~<DG1.3.1>E78.00</DG1.3.1><DG1.3.1>E78.1</DG1.3.1><DG1.3.1>Z79.899</D G1.3.1><DG1. ID Date Data Source [id number] 10/26/2019 08:35:00 AM EDT [facility] ([facility]) Name Value Range Interpretation Code Description Data Zelda rce(s) Supporting Document(s) Magnesium [Mass/volume] in Serum or Plasma 1.6 mg/dL 1.7-2.2 [place] w low normal [facility]) Is patient fasting? N ID Date Data Source [id number] 10/26/2019 08:35:00 AM EDT [facility] ([facility]) Name Value Range Interpretation Code Description Data Zelda rce(s) Supporting Document(s) HDL 65 mg/dL 29-86 [facility] ([facility]) Is patient fasting? N Triglycerides 132 mg/dL 35-160 [facility] ([facility]) Is patient fasting? N Cholesterol 202 mg/dL 131-200 Above high normal [facility] ([facility]) Is patient fasting? N Cve Panel Laboratory test result [facility] ([facility]) Is patient fasting? N LDL/HDL 1.83 1.47-3.22 [facility] ([facility]) Is patient fasting? N Risk Factor 3.1 3.2-4.4 Below low normal [facility] ([facility]) Is patient fasting? N LDL 119 mg/dL 65-175 [facility] ([facility]) Is patient fasting? N ID Date Data Source [id number] 10/26/2019 08:35:00 AM EDT [facility] ([facility]) Name Value Range Interpretation Code Description Data Zelda rce(s) Supporting Document(s) Thyrotropin [Units/volume] in Serum or Plasma 2.18 uIU/mL 0.47-5.01 [facility] ([facility]) Is patient fasting? N Hemoglobin A1c/Hemoglobin.total in Blood 6.7 % 4.4-6.1 Above high normal [facility] ([facility]) Is patient fasting? N ID Date Data Source [id number] 10/26/2019 08:35:00 AM EDT [facility] ([facility]) Name Value Range Interpretation Code Description Data Zelda rce(s) Supporting Document(s) Comprehensive Metabo Laboratory test result [facility]) Is patient fasting? N Potassium 4.2 meq/L 3.6-5.0 [facility] ([facility]) Is patient fasting? N Chloride 104 meq/L 98-107 [facility] ([facility]) Is patient fasting? N Sodium 145 meq/L 134-153 [facility] ([facility]) Is patient fasting? N Co2 25 meq/L 22-30 [facility] ([facility]) Is patient fasting? N BUN 20 mg/dL 7-21 [facility] ([facility]) Is patient fasting? N Creatinine 1.2 mg/dL 0.7-1.5 [facility] ([facility]) Is patient fasting? N Glucose 103 mg/dL 65-110 [facility] ([facility]) Is patient fasting? N BUN/Creat 17 8-27 [facility] ([facility]) Is patient fasting? N Albumin 4.8 g/dL 3.9-5.0 [facility] ([facility]) Is patient fasting? N Total Protein 7.3 g/dL 6.3-8.2 [facility] Is patient fasting? N Calcium 10.0 mg/dL 8.4-10.2 [facility] Is patient fasting? N Globulin 2.5 GM/DL 2.4-3.2 [facility] Is patient fasting? N A/G Ratio 1.9 0.8-2.0 [facility] ([facility]) Is patient fasting? N Total Bili Laboratory test result 0.2-1.3 [facility] ([facility]) Is patient fasting? N Sgot/Ast 16 U/L 5-40 [facility] ([facility]) Is patient fasting? N Alkaline Phos 74 U/L 38-126 [facility]) Is patient fasting? N SGPT/Alt 10 U/L 7-56 [facility] Is patient fasting? N Age 74 yrs [facility] ([facility]) Is patient fasting? N Anion Gap 16.0 mmol/L 8.0-16.0 [facility] ([facility]) Is patient fasting? N Non-Aa GFR 47 mL/min [facility] ([facility]) Is patient fasting? N Afr Amer GFR Laboratory test result [facility] Is patient fasting? N ID Date Data Source [id number] 10/26/2019 08:35:00 AM EDT [facility] ([facility]) Name Value Range Interpretation Code Description Data Zelda rce(s) Supporting Document(s) CBC W/Automated Diff Laboratory test result [facility]) Is patient fasting? N Hemoglobin 11.6 g/dL 12.0-16.0 Below low normal [facility] ( [facility] Is patient fasting? N WBC 6.5 10^3/uL 4.2-11.0 [facility] ([facility]) Is patient fasting? N RBC 3.96 10^6/uL 4.20-5.40 Below low normal [facility] ([facility]) Is patient fasting? N MCH 29.3 pg 27.0-34.0 [facility] ([facility]) Is patient fasting? N Hematocrit 36.7 % 37.0-47.0 Below low normal [facility] ( [facility]) Is patient fasting? N MCV 92.7 fL 81.0-101 [facility] ([facility]) Is patient fasting? N RDW 13.4 % 11.5-14.5 [facility] ([facility]) Is patient fasting? N MPV 10.0 fL 7.4-10.4 [facility] ([facility]) Is patient fasting? N Platelets 287 10^3/uL 150-450 [facility] ([facility]) Is patient fasting? N MCHC 31.6 g/dL 31.0-36.0 [facility] ([facility]) Is patient fasting? N Lymph 25.1 % 25.0-40.0 [facility] ([facility]) Is patient fasting? N [place] 6.3 % 3.0-8.0 [facility] ([facility]) Is patient fasting? N Neut 65.0 % 37.0-80.0 [facility] ([facility]) Is patient fasting? N %Ig 0.5 % 0.0-0.0 Above high normal [facility] ([facility]) Is patient fasting? N Baso 0.9 % 0.0-2.5 [facility] ([facility]) Is patient fasting? N Eos 2.2 % 0.0-7.0 [facility] ([facility]) Is patient fasting? N %NRBC 0.0 % 0.0-0.0 [facility] ([facility]) Is patient fasting? N #[place] 0.41 10^3/uL 0.00-0.90 [facility] Is patient fasting? N #Lymph 1.62 10^3/uL 0.60-3.40 [facility]) Is patient fasting? N #Neut 4.20 10^3/uL 2.00-6.90 [facility] ([facility]) Is patient fasting? N #Ig 0.03 10^3/uL 0.00-0.10 [facility]) Is patient fasting? N #Baso 0.06 10^3/uL 0.00-0.20 [facility]) Is patient fasting? N #Eos 0.14 10^3/uL 0.00-0.70 [facility]) Is patient fasting? N #NRBC 0.00 10^3/uL 0.00-0.00 [facility]) Is patient fasting? N RBC Morph Laboratory test result [facility] ([facility]) Is patient fasting? N Manual Diff Laboratory test result [facility] Is patient fasting? N ID Date Data Source [id number] 10/26/2019 06:39:00 PM EDT [facility] Name Value Range Interpretation Code Description Data Zelda rce(s) Supporting Document(s) Thyrotropin [Units/volume] in Serum or Plasma by Detec tion limit <= 0.05 mIU/L 2.18 uIU/mL 0.47 - 5.01 [facility] ID Date Data Source [id number] 10/26/2019 06:32:00 PM EDT [facility] Name Value Range Interpretation Code Description Data Zelda rce(s) Supporting Document(s) Hemoglobin A1c/Hemoglobin.total in Blood 6.7 % 4.4 - 6.1 H [facility] {A1]{HB] ID Date Data Source [id number] 10/26/2019 06:25:00 PM T [facility] Name Value Range Interpretation Code Description Data Zelda rce(s) Supporting Document(s) Magnesium [Mass/volume] in Serum or Plasma 1.6 MG/DL 1.7 - 2.2 L [facility] ID Date Data Source [id number] 10/26/2019 06:25:00 PM EDT [facility] Name Value Range Interpretation Code Description Data Zelda rce(s) Supporting Document(s) [facility] LIPID PAN[facility] Cholesterol [Mass/volume] in Serum or Plasma 202 MG/DL 131 - 200 H [facility] Deprecated Triglyceride [Mass/volume] in Serum or Plasma 132 MG/DL 3 5 - 160 [facility] HDL 65 MG/DL 29 - 86 [facility] Cholesterol in LDL [Mass/volume] in Serum or Plasma by Direc t assay 119 mg/dL 65 - 175 [facility] Cholesterol.total/Cholesterol in HDL [Mass Ratio] in Serum o r Plasma 3.1 3.2 - 4.4 L [facility] LDL/HDL 1.83 1.47 - 3.22 [facility] CVE RISK CHOL/HDL LDL/HDLMEN: 1/2 AVERAGE 3.43 1.00 AVERAGE 4.97 3.55 2X AVERAGE 9.55 6.25 3X AVERAGE 23.99 7.99WOMEN: 1/2 AVERAGE 3.27 1.47 AVERAGE 4.44 3.22 2X AVERAGE 7.05 5.03 3X AVERAGE 11.04 6.14 ID Date Data Source [id number] 10/26/2019 06:25:00 PM EDT [facility] Name Value Range Interpretation Code Description Data Zelda rce(s) Supporting Document(s) COMPREHENSIVE METABOLIC PANEL [facility] COMPREHENSIVE METABOLIC PANEL Sodium [Moles/volume] in Serum or Plasma 145 mEq/L 134 - 153 [facility] Potassium [Moles/volume] in Serum or Plasma 4.2 mEq/L 3.6 - 5.0 [facility] Chloride [Moles/volume] in Serum or Plasma 104 mEq/L 98 - 107 [facility] Carbon dioxide, total [Moles/volume] in Serum or Plasma 25 MEQ/L 22 - 30 [facility] Glucose [Mass/volume] in Serum or Plasma 103 MG/DL 65 - 110 [facility] BUN 20 MG/DL 7 - 21 [facility] Creatinine [Mass/volume] in Serum or Plasma 1.2 MG/DL 0.7 - 1.5 [facility] BUN/CREAT 17 8 - 27 [facility] Protein [Mass/volume] in Serum or Plasma 7.3 G/DL 6.3 - 8.2 [facility] Albumin [Mass/volume] in Serum or Plasma 4.8 G/DL 3.9 - 5.0 [facility] Globulin [Mass/volume] in Serum by calculation 2.5 GM/DL 2.4 - 3.2 [facility] A/G RATIO 1.9 0.8 - 2.0 [facility] Calcium [Mass/volume] in Serum or Plasma 10.0 MG/DL 8.4 - 10.2 [facility] Bilirubin.total [Mass/volume] in Serum or Plasma <0.7 MG/DL 0.2 - 1.3 [facility] Alkaline phosphatase [Enzymatic activity/volume] in Serum or Plasma 74 U/L 38 - 126 [facility] Aspartate aminotransferase [Enzymatic activity/volume] in Serum or Plasma 16 U/L 5 - 40 [facility] Alanine aminotransferase [Enzymatic activity/volume] in Seru m or Plasma 10 U/L 7 - 56 [facility] Anion gap 3 in Serum or Plasma 16.0 mmol/L 8.0 - 16.0 [facility] AGE 74 yrs [facility] NON-AA GFR 47 mL/min [facility] AFR AMER GFR >60 [facility] Male GFR In terprentation [...] >32 mL/min Normal ID Date Data Source [id number] 10/26/2019 06:12:00 PM EDT [facility] Name Value Range Interpretation Code Description Data Zelda rce(s) Supporting Document(s) CBC W/AUTOMATED DIFF [facility] COMPLETE BLOOD COUNT Leukocytes [#/volume] in Blood by Automated count 6.5 10^3/uL 4.2 - 1 1.0 [facility] Erythrocytes [#/volume] in Blood by Automated count 3.96 10^6/uL 4. 20 - 5.40 L [facility] Hemoglobin [Mass/volume] in Blood 11.6 g/dL 12.0 - 16.0 L [facility] Hematocrit [Volume Fraction] of Blood by Automated count 36.7 % 3 7.0 - 47.0 L [facility] Erythrocyte mean corpuscular volume [Entitic volume] by Auto mated count 92.7 fL 81.0 - 101 [facility] Erythrocyte mean corpuscular hemoglobin [Entitic mass] by Automated count 29.3 pg 27.0 - 34.0 [facility] Erythrocyte mean corpuscular hemoglobin concentration [Mass/volume] by Automated count 31.6 g/dL 31.0 - 36.0 [facility] Erythrocyte distribution width [Ratio] by Automated count 13.4 % 11.5 - 14.5 [facility] Platelets [#/volume] in Blood by Automated count 287 10^3/uL 150 - 45 0 [facility] Platelet mean volume [Entitic volume] in Blood by Automated count 10.0 fL 7.4 - 10.4 [facility] Neutrophils/100 leukocytes in Blood by Automated count 65.0 % 37. 0 - 80.0 [facility] Lymphocytes/100 leukocytes in Blood by Manual count 25.1 % 25.0 - 40.0 [facility] Monocytes/100 leukocytes in Blood by Automated count 6.3 % 3.0 - 8.0 [facility] Eosinophils/100 leukocytes in Blood by Automated count 2.2 % 0.0 - 7.0 [facility] Basophils/100 leukocytes in Blood by Automated count 0.9 % 0.0 - 2.5 [facility] %IG 0.5 % 0.0 - 0.0 H [facility] al %NRBC 0.0 % 0.0 - 0.0 [facility] Neutrophils [#/volume] in Blood by Automated count 4.20 10^3/uL 2.00 - 6.90 [facility] Lymphocytes [#/volume] in Blood by Automated count 1.62 10^3/uL 0.60 - 3.40 [facility] Monocytes [#/volume] in Blood by Automated count 0.41 10^3/uL 0.00 - 0.90 [facility] Eosinophils [#/volume] in Blood by Automated count 0.14 10^3/uL 0.00 - 0.70 [facility] Basophils [#/volume] in Blood by Automated count 0.06 10^3/uL 0.00 - 0.20 [facility] #IG 0.03 10^3/uL 0.00 - 0.10 [facility] ospital #NRBC 0.00 10^3/uL 0.00 - 0.00 [facility] ospital MANUAL DIFF NOT INDICATED [facility] RBC MORPH NOT INDICATED [facility] spital ID Date Data Source [id number] 05/06/2019 04:43:00 PM EST [facility] Name Value Range Interpretation Code Description Data Zelda rce(s) Supporting Document(s) Sodium 143 mmol/L 136-145 Normal (applies to non-numeric resul ts) [facility] Potassium 3.5-5.1 Below low normal [facility] Chloride 104 mmol/L 98-107 Normal (applies to non-numeric resul ts) [facility] Carbon Dioxide CO2 21-32 Normal (applies to non-numer ic results) [facility] Anion Gap 5.0-16.0 Normal (applies to non-numeric resul ts) [facility] BUN 20 mg/dL 7-18 Above high normal [facility] Creatinine,Serum 0.7-1.2 Normal (applies to non-numeric results) [facility] GFR 47 mL/min >60 Below low normal [facility] Glucose Level 112 mg/dL 60-99 Above high normal [facility] Reference range is only applicable when patient is fasting Note the following drug interference: Sulfasalazine Sulfapyridine Can see falsely depressed Can see falsely elevated result with up to 17% results with up to 11% decrease in measurement increase in measurement Recommend patients be collected for this test prior to administration of either drug. Calcium 8.5-10.1 Normal (applies to non-numeric resul ts) [facility] Bilirubin,Total 0.1-1.9 Normal (applies to non-numeric results) [facility] SGOT(AST) 13 U/L 15-37 Below low normal [facility] Note the following drug interference: Sulfasalazine Sulfapyridine Can see falsely depressed Can see falsely elevated result with up to 10% results with up to 10% decrease in measurement increase in measurement Recommend patients be collected for this test prior to administration of either drug. SGPT(ALT) 15 U/L 12-78 Normal (applies to non-numeric resul ts) [facility] Note the following drug interference: Sulfasalazine Sulfapyridine Can see falsely depressed Can see falsely elevated result with up to 29% results with up to 10% decrease in measurement increase in measurement Recommend patients be collected for this test prior to administration of either drug. Alkaline Phosphatase 70 U/L 38-126 Normal (applies to non-num rd results) [facility] can increase Alkaline Phosp le vels up to 2 times the normal adult value. Normal values for children and adolescents are 2 to 3 times the normal adult value. Total Protein 6.0-8.2 Normal (applies to non-numeric re sults) [facility] Albumin Level 3.4-5.0 Normal (applies to non-numeric re sults) [facility] ID Date Data Source [id number] 05/06/2019 04:43:00 PM EST [facility] Name Value Range Interpretation Code Description Data Zelda rce(s) Supporting Document(s) Triglycerides 95 mg/dL <150 Normal (applies to non-numeric re sults) [facility] Cholesterol 174 mg/dL 100-200 Normal (applies to non-numeric resu lts) [facility] LDL Cholesterol Calculated 89 0-130 Normal (applies to n on-numeric results) [facility] HDL Cholesterol 66 mg/dL 40-60 Above high normal [facility] Cholesterol/HDL Ratio 3.6-6.7 Below low normal [facility] Procedure Vital Signs ID Date Data Source UNK Name Value Range Interpretation Code Description Data Source(s) Body height 58 [in_i] 58 [in_i] [facility] ([facility]) 4'10" Oxygen saturation in Arterial blood by Pulse oximetry 97 % 97 % [facility] Respiratory rate 18 /min 18 /min [facility] Heart rate 124 /min 124 /min [facility] ([facility]) Diastolic blood pressure--sitting 100 mm[Hg] 10 0 mm[Hg] [facility] Systolic blood pressure--sitting 194 mm[Hg] 194 mm[Hg] [facility] Diastolic blood pressure 100 mm[Hg] 100 mm[Hg] [facility] Systolic blood pressure 200 mm[Hg] 200 mm[Hg] [facility] Body surface area Derived from formula 1.29 m2 1.29 m2 [facility] Body mass index (BMI) [Ratio] 18.6 kg/m2 18.6 k g/m2 [facility] Body height 58 [in_i] 58 [in_i] [facility] ([facility]) 4'10" Body weight 40.427 kg 40.427 kg [facility] Body weight 89.12 [lb_av] 89.12 [lb_av] [facility] ([facility] Oxygen saturation in Arterial blood by Pulse oximetry 97 % 97 % [facility] Respiratory rate 18 /min 18 /min [facility] Body temperature 97.4 [degF] 97.4 [degF] [facility] Heart rate 102 /min 102 /min [facility] ([facility]) Diastolic blood pressure 80 mm[Hg] 80 mm[Hg] [facility] Systolic blood pressure 120 mm[Hg] 120 mm[Hg] [facility] Body surface area Derived from formula 1.33 m2 1.33 m2 [facility] Body mass index (BMI) [Ratio] 20.1 kg/m2 20.1 k g/m2 [facility] Body height 58 [in_i] 58 [in_i] [facility] ([facility]) 4'10" Body weight 43.659 kg 43.659 kg [facility] ([facility]) Body weight 96.25 [lb_av] 96.25 [lb_av] [facility] Oxygen saturation in Arterial blood by Pulse oximetry 96 % 96 % [facility] Respiratory rate 18 /min 18 /min [facility] ( [facility] Body temperature 98.2 [degF] 98.2 [degF] [facility] Heart rate 94 /min 94 /min [facility] ([facility]) Diastolic blood pressure 68 mm[Hg] 68 mm[Hg] [facility] Systolic blood pressure 140 mm[Hg] 140 mm[Hg] [facility] Body surface area 1.33 m2 1.33 m2 [facility]
--- NOTE | 2020-07-05 07:54 | REP ---
INDICATION: hypertension COMPARISON: 01/15/2015 TECHNIQUE: Portable AP view of the chest FINDINGS: The mediastinum and cardiac silhouette are stable including large hiatal hernia. The lung hernandez demonstrate chronic changes without acute consolidation, effusion, or pneumothorax. Skeletal structures are intact. IMPRESSION: No acute cardiopulmonary process appreciated. <Electronically signed by Shlomo Luque > 07/05/20 2043
[2020-07-05] MEDS ORDERED: cloNIDine 0.1MG TABLET PO ONE (08:45)
[2020-07-05] MEDS ORDERED: HYDR-3490 PO (12:13)
[2020-07-05 12:45] VITALS: BP 156/85
--- NOTE | 2020-07-05 19:26 | ECGEPIP ---
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
== END 2020-07-05 12:54 | disposition home or self-care (01) ==
LOC: M ED 06:30
DX: I16.0 Hypertensive urgency (principal); E78.5 Hyperlipidemia, unspecified; Z79.899 Other long term (current) drug therapy

== ENCOUNTER 2020-07-26 12:04 | Emergency (ER) | payer MEDICARE ==
[~2020-07-26] VITALS: Ht 152.4 cm; Wt 31.9 kg
[~2020-07-26 12:04] MED LIST changes: +ATOR1TAB21 PO; +CLONI1TA PO; +HYDR-3490 PO; +LOSA100T50 PO
[2020-07-26] MEDS ORDERED: FENO48TA7 (12:12)
[2020-07-26] MEDS ORDERED: HYDR50TAB PO (13:55)
[2020-07-26 13:58] VITALS: BP 134/76
== END 2020-07-26 14:07 | disposition home or self-care (01) ==
LOC: M ED 12:04
DX: I10 Essential (primary) hypertension (principal); Z79.899 Other long term (current) drug therapy

== ENCOUNTER 2020-07-28 01:52 | Emergency (ER) | payer MEDICARE ==
[~2020-07-28] VITALS: Ht 154.9 cm; Wt 39.5 kg
[~2020-07-28 01:52] MED LIST changes: +FENO48TA7; +HYDR50TAB PO
[2020-07-28] MEDS ORDERED: POTASSIUM CHLORIDE 10 MEQ SR TABLET PO ONE (02:45)
[2020-07-28] MEDS ORDERED: K-TA1TAB PO (03:05)
[2020-07-28 04:13] VITALS: BP 145/77
--- NOTE | 2020-07-28 08:22 | ECGEPIP ---
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
== END 2020-07-28 04:14 | disposition home or self-care (01) ==
LOC: M ED 01:52
DX: I10 Essential (primary) hypertension (principal); F41.9 Anxiety disorder, unspecified; E87.6 Hypokalemia; Z79.899 Other long term (current) drug therapy

== ENCOUNTER 2020-08-15 20:11 | Emergency (ER) | payer MEDICARE ==
[~2020-08-15] VITALS: Ht 154.9 cm; Wt 39.2 kg
[~2020-08-15 20:11] MED LIST changes: +K-TA1TAB PO
[2020-08-15] MEDS ORDERED: METO1TAB32 PO ×2 (20:36→23:35)
[2020-08-15] MEDS ORDERED: MAGN400T2 PO (20:36)
--- NOTE | 2020-08-15 20:46 | ECGEPIP ---
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
[2020-08-15] MEDS ORDERED: METOPROLOL SUCC *XL* 25MG TAB (TopROL *XL*) PO ONE (23:30)
[2020-08-15 23:35] VITALS: BP 168/88
[2020-08-15 23:53] VITALS: BP 160/84
== END 2020-08-15 23:54 | disposition home or self-care (01) ==
LOC: M ED 20:11
DX: I10 Essential (primary) hypertension (principal); Z79.899 Other long term (current) drug therapy

== ENCOUNTER → 2020-09-06 | Outpatient (CLI) | payer MEDICARE ==
[~2020-09-06] MED LIST changes: +MAGN400T2 PO; +METO1TAB32 PO
[2020-09-06 13:37] LABS: ALBUMIN 3.9 GM/DL (3.2-5.2); CALCIUM LEVEL 9.7 MG/DL (8.8-10.2); CREATININE FOR GFR 0.97 MG/DL (0.55-1.30); GLOMERULAR FILTRATION RATE 59.4 (>39); MAGNESIUM LEVEL 1.8 MG/DL (1.8-2.4); PHOSPHORUS LEVEL 2.9 MG/DL (2.5-4.9); POTASSIUM SERUM 4.3 MEQ/L (3.5-5.1); THYROID STIMULATING HORMONE 0.784 uIU/ML (0.358-3.740); THYROXINE (T4) 8.6 UG/DL (4.5-12.0)
[2020-09-06 18:51] LABS: CREATININE, URINE 14.7 MG/DL; MALB URINE SIEMENS 6.3 MG/L; MAU/CREAT RATIO 42.8 MCG/MG (0.0-30.0)
== END ==
LOC: M LAB 11:27
PROVIDERS: ATTEND Internal Medicine Cardiovascular Disease
DX: I10 Essential (primary) hypertension (principal)